=== PATIENT | male | born 1945 | race Caucasian/White ===

== ENCOUNTER → 2018-06-23 14:31 | Outpatient (CLI) | payer MEDICARE, OTHER, SELFPAY ==
--- NOTE | 2018-06-23 14:47 | RAD_ITS ---
STUDY: X-RAY - PELVIS REASON FOR EXAM: Male, 72 years old. Inflammatory polyarthropathy TECHNIQUE: One view of the pelvis was obtained. COMPARISON: None. FINDINGS: There is a non-specific bowel gas pattern. Normal visualized soft tissue structures. Normal bilateral iliac wings, sacroiliac joints and visualized sacrum. Normal visualized bilateral superior and inferior pubic rami. Normal pubic symphysis. Normal ischial tuberosities. Normal visualized right femoral head. Normal right acetabulum. Normal right hip joint. Normal visualized left femoral head. Normal left acetabulum. Normal left hip joint. RAD/Pelvis 1 or 2 Views IMPRESSION: Normal x-ray examination of the pelvis. Electronically Signed: Sebastien North DO at 23:53 EDT Tel [phone], Service support ,
[2018-06-23 17:48] LABS: Hematocrit 41.6 % (40-54); Hemoglobin 13.9 g/dl (13.0-16.5); Lymphocyte % 24.2 % (19-41); Mean Corp Hgb Conc 33.4 g/gl (32-36); Mean Corpuscular Hgb 33.1 pg (27.0-32.0); Mean Platelet Vol. 9.8 fl (6.2-12.0); Neutrophil % 61.5 % (47-70); Platelet Count 397 K/mm3 (150-450); RBC Distribution Width CV 15.1 % (11.6-14.6); RBC Distribution Width SD 54.3 fl (35.1-43.9); White Blood Count 7.4 K/mm3 (4.4-11.0)
[2018-06-23 17:49] LABS: Absolute Neutrophil Count 4.6 X10^3/uL (2.0-7.7); Basophil# 0.08 X10^3/uL; Basophil% 1.1 % (0-1); Eosinophil# 0.31 X10^3/uL; Eosinophils% 4.2 % (0-5); Monocyte# 0.66 X10^3/uL; Monocyte% 8.9 % (0-10); Neutrophil # 4.57 X10^3/uL (2.7-7.7)
[2018-06-23 17:54] LABS: POSITIVE COUNT NO; POSITIVE DIFFERENTIAL NO; POSITIVE MORPHOLOGY NO
[2018-06-23 18:10] LABS: Erythrocyte Sedimentation Rate 6 mm/hr (0-20)
[2018-06-23 18:12] LABS: AST(SGOT) 18 U/L (15-37); Alanine Aminotransfer ALT/SGPT 26 U/L (16-61); Albumin, Serum 4.1 g/dL (3.2-5.0); Alkaline Phosphatase 102 U/L (45-117); Anion Gap 6 (5-15); BUN 19 mg/dL (7-18); CRP < 2.90 mg/L (0.0-3.0); Calcium,Total 9.1 mg/dL (8.5-10.1); Chloride 105 mmol/L (98-107); EST Glomerular Filtration Rate 78 mL/min (>60); Est Glom Filt Rate - Afr Amer 94 mL/min (>60); Globulin 4.2 g/dL (2.2-4.2); Glucose 79 mg/dL (74-106); Potassium 3.7 mmol/L (3.5-5.1); Protein, Total 8.3 g/dL (6.4-8.2); Rheumatoid Factor < 10.0 IU/mL (<15); Sodium Level 141 mmol/L (136-145)
[2018-06-27 12:59] LABS: ANTINUCLEAR ANTIBODIES DIRECT Negative (Negative)
[2018-06-28 08:46] LABS: CCP IgG Antibodies 3 units (0-19); HEPATITIS B SURFACE AG Negative (Negative); HLA B27 Negative (.); Hep B Surface Antibodies Non Reactive (.); Hep C Antibodies <0.1 s/co ratio (0.0-0.9)
== END ==
PROVIDERS: Family Provider Family Medicine; PCP Family Medicine; Referring Provider Internal Medicine Rheumatology; Visit Provider Internal Medicine Rheumatology
DX: M06.4 Inflammatory polyarthropathy (principal); I10 Essential (primary) hypertension; E78.5 Hyperlipidemia, unspecified; H40.9 Unspecified glaucoma; H35.30 Unspecified macular degeneration
CPT/HCPCS: 36415; 72170; 80053; 81374; 85025; 85652; 86038; 86140; 86200; 86431; 86706; 86803; 87340

== ENCOUNTER → 2018-09-08 | Outpatient (CLI) | payer MEDICARE, OTHER, SELFPAY ==
[2018-09-08 12:46] LABS: Absolute Lymphocyte Count 1.13 X10^3/ul (0.83-4.51); Absolute Neutrophil Count 3.6 X10^3/uL (2.0-7.7); Basophil# 0.06 X10^3/uL; Basophil% 1.1 % (0-1); Eosinophil# 0.18 X10^3/uL; Eosinophils% 3.4 % (0-5); Hemoglobin 13.4 g/dl (13.0-16.5); Lymphocyte # 1.13 X10^3/ul (4.0); Lymphocyte % 21.1 % (19-41); Mean Corp Hgb Conc 33.5 g/gl (32-36); Mean Corpuscular Hgb 32.8 pg (27.0-32.0); Mean Platelet Vol. 9.6 fl (6.2-12.0); Monocyte# 0.43 X10^3/uL; Neutrophil # 3.56 X10^3/uL (2.7-7.7); Neutrophil % 66.4 % (47-70); Platelet Count 406 K/mm3 (150-450); RBC Distribution Width CV 15.2 % (11.6-14.6); RBC Distribution Width SD 52.9 fl (35.1-43.9); Red Blood Count 4.08 M/mm3 (4.6-6.2); White Blood Count 5.4 K/mm3 (4.4-11.0)
[2018-09-08 12:48] LABS: POSITIVE COUNT NO; POSITIVE DIFFERENTIAL NO; POSITIVE MORPHOLOGY NO
[2018-09-08 12:56] LABS: ALB/GLOB Ratio 0.9 RATIO (0.9-2.4); AST(SGOT) 16 U/L (15-37); Alanine Aminotransfer ALT/SGPT 29 U/L (16-61); Albumin, Serum 3.7 g/dL (3.2-5.0); Alkaline Phosphatase 99 U/L (45-117); Anion Gap 4 (5-15); BUN 16 mg/dL (7-18); BUN/Creat Ratio 13.2 RATIO (10-20); Calcium,Total 9.2 mg/dL (8.5-10.1); Chloride 105 mmol/L (98-107); Creatinine, Serum 1.21 mg/dL (0.70-1.30); EST Glomerular Filtration Rate 62 mL/min (>60); Est Glom Filt Rate - Afr Amer 75 mL/min (>60); Globulin 4.1 g/dL (2.2-4.2); Glucose 72 mg/dL (74-106); Potassium 3.7 mmol/L (3.5-5.1); Protein, Total 7.8 g/dL (6.4-8.2); Sodium Level 140 mmol/L (136-145)
== END | disposition home or self-care (01) ==
LOC: MTLAB 10:28
PROVIDERS: Family Provider Family Medicine; PCP Family Medicine; Referring Provider Internal Medicine Rheumatology; Visit Provider Internal Medicine Rheumatology
DX: I10 Essential (primary) hypertension (principal); M06.4 Inflammatory polyarthropathy; E78.5 Hyperlipidemia, unspecified; H40.9 Unspecified glaucoma; H35.30 Unspecified macular degeneration
CPT/HCPCS: 36415; 80053; 85025

== ENCOUNTER → 2018-12-08 10:50 | Outpatient (CLI) | payer MEDICARE, OTHER, SELFPAY ==
[2018-12-08 12:30] LABS: Absolute Lymphocyte Count 0.95 X10^3/uL (0.83-4.51); Absolute Neutrophil Count 5.3 X10^3/uL (2.0-7.7); Basophil# 0.07 X10^3/uL; Eosinophil# 0.17 X10^3/uL; Eosinophils% 2.4 % (0-5); Hematocrit 40.8 % (40-54); Hemoglobin 13.6 g/dL (13.0-16.5); Lymphocyte # 0.95 X10^3/ul (4.0); Lymphocyte % 13.2 % (19-41); Mean Corp Hgb Conc 33.3 g/dL (32-36); Mean Corpuscular Hgb 34.9 pg (27.0-32.0); Mean Corpuscular Volume 104.6 fL (80-94); Mean Platelet Vol. 9.8 fl (6.2-12.0); Monocyte# 0.66 X10^3/uL; Monocyte% 9.2 % (0-10); NRBC Flagged by Analyzer 0 % (0-5); Neutrophil % 73.9 % (47-70); Platelet Count 284 K/mm3 (150-450); RBC Distribution Width CV 14.5 % (11.6-14.6); RBC Distribution Width SD 55.9 fl (35.1-43.9); White Blood Count 7.2 K/mm3 (4.4-11.0)
[2018-12-08 12:56] LABS: ALB/GLOB Ratio 1.1 RATIO (0.9-2.4); AST(SGOT) 16 U/L (15-37); Alanine Aminotransfer ALT/SGPT 21 U/L (16-61); Alkaline Phosphatase 87 U/L (45-117); Anion Gap 4 (5-15); BUN 21 mg/dL (7-18); BUN/Creat Ratio 21.7 RATIO (10-20); Calcium,Total 9.1 mg/dL (8.5-10.1); Chloride 107 mmol/L (98-107); Creatinine, Serum 0.97 mg/dL (0.70-1.30); EST Glomerular Filtration Rate 81 mL/min (>60); Est Glom Filt Rate - Afr Amer 98 mL/min (>60); Globulin 3.5 g/dL (2.2-4.2); Glucose 99 mg/dL (74-106); Protein, Total 7.5 g/dL (6.4-8.2); Sodium Level 139 mmol/L (136-145)
== END ==
PROVIDERS: Family Provider Family Medicine; PCP Family Medicine; Referring Provider Internal Medicine Rheumatology; Visit Provider Internal Medicine Rheumatology
DX: M06.4 Inflammatory polyarthropathy (principal); I10 Essential (primary) hypertension; E78.5 Hyperlipidemia, unspecified; H40.9 Unspecified glaucoma; H35.30 Unspecified macular degeneration; Z79.899 Other long term (current) drug therapy
CPT/HCPCS: 36415; 80053; 85025

== ENCOUNTER → 2019-03-09 10:47 | Outpatient (CLI) | payer MEDICARE, OTHER, SELFPAY ==
[2019-03-09 13:03] LABS: Absolute Lymphocyte Count 1.25 X10^3/uL (0.83-4.51); Absolute Neutrophil Count 4.6 X10^3/uL (2.0-7.7); Basophil# 0.05 X10^3/uL; Basophil% 0.7 % (0-1); Eosinophil# 0.18 X10^3/uL; Eosinophils% 2.7 % (0-5); Hematocrit 39.4 % (40-54); Hemoglobin 13.2 g/dL (13.0-16.5); Lymphocyte # 1.25 X10^3/ul (4.0); Lymphocyte % 18.5 % (19-41); Mean Corp Hgb Conc 33.5 g/dL (32-36); Mean Corpuscular Hgb 34.9 pg (27.0-32.0); Mean Corpuscular Volume 104.2 fL (80-94); Mean Platelet Vol. 9.7 fl (6.2-12.0); Monocyte# 0.64 X10^3/uL; Monocyte% 9.5 % (0-10); NRBC Flagged by Analyzer 0 % (0-5); Neutrophil # 4.61 X10^3/uL (2.7-7.7); Neutrophil % 68.3 % (47-70); Platelet Count 247 K/mm3 (150-450); RBC Distribution Width CV 14.3 % (11.6-14.6); RBC Distribution Width SD 54.3 fl (35.1-43.9); Red Blood Count 3.78 M/mm3 (4.6-6.2); White Blood Count 6.8 K/mm3 (4.4-11.0)
[2019-03-09 13:53] LABS: ALB/GLOB Ratio 1.2 RATIO (0.9-2.4); AST(SGOT) 20 U/L (15-37); Alanine Aminotransfer ALT/SGPT 26 U/L (16-61); Albumin, Serum 3.9 g/dL (3.2-5.0); Alkaline Phosphatase 76 U/L (45-117); Anion Gap 4 (5-15); BUN 22 mg/dL (7-18); Calcium,Total 9.5 mg/dL (8.5-10.1); Chloride 108 mmol/L (98-107); Creatinine, Serum 1.16 mg/dL (0.70-1.30); EST Glomerular Filtration Rate 65 mL/min (>60); Est Glom Filt Rate - Afr Amer 79 mL/min (>60); Globulin 3.3 g/dL (2.2-4.2); Glucose 98 mg/dL (74-106); Potassium 4.1 mmol/L (3.5-5.1); Protein, Total 7.2 g/dL (6.4-8.2); Sodium Level 141 mmol/L (136-145)
== END ==
PROVIDERS: Family Provider Family Medicine; PCP Family Medicine; Referring Provider Internal Medicine Rheumatology; Visit Provider Internal Medicine Rheumatology
DX: I10 Essential (primary) hypertension (principal); M06.4 Inflammatory polyarthropathy; E78.5 Hyperlipidemia, unspecified; H40.9 Unspecified glaucoma; H35.30 Unspecified macular degeneration; Z79.899 Other long term (current) drug therapy
CPT/HCPCS: 36415; 80053; 85025

== ENCOUNTER → 2019-05-19 10:08 | Outpatient (CLI) | payer MEDICARE, OTHER, SELFPAY ==
[2019-05-19 12:06] LABS: Absolute Lymphocyte Count 1.22 X10^3/uL (0.83-4.51); Basophil# 0.05 X10^3/uL; Basophil% 0.8 % (0-1); Eosinophils% 3.2 % (0-5); Hematocrit 41.2 % (40-54); Hemoglobin 13.8 g/dL (13.0-16.5); Lymphocyte # 1.22 X10^3/ul (4.0); Lymphocyte % 19.4 % (19-41); Mean Corp Hgb Conc 33.5 g/dL (32-36); Mean Corpuscular Hgb 35.6 pg (27.0-32.0); Mean Corpuscular Volume 106.2 fL (80-94); Mean Platelet Vol. 9.6 fl (6.2-12.0); Monocyte# 0.77 X10^3/uL; Monocyte% 12.2 % (0-10); NRBC Flagged by Analyzer 0 % (0-5); Neutrophil # 4.02 X10^3/uL (2.7-7.7); Neutrophil % 63.9 % (47-70); Platelet Count 264 K/mm3 (150-450); RBC Distribution Width CV 14.1 % (11.6-14.6); RBC Distribution Width SD 55.4 fl (35.1-43.9); Red Blood Count 3.88 M/mm3 (4.6-6.2); White Blood Count 6.3 K/mm3 (4.4-11.0)
[2019-05-19 12:31] LABS: ALB/GLOB Ratio 1.1 RATIO (0.9-2.4); AST(SGOT) 20 U/L (15-37); Alanine Aminotransfer ALT/SGPT 25 U/L (16-61); Alkaline Phosphatase 79 U/L (45-117); Anion Gap 7 (5-15); BUN 23 mg/dL (7-18); BUN/Creat Ratio 22.3 RATIO (10-20); Calcium,Total 9.3 mg/dL (8.5-10.1); Chloride 104 mmol/L (98-107); Creatinine, Serum 1.03 mg/dL (0.70-1.30); EST Glomerular Filtration Rate 75 mL/min (>60); Est Glom Filt Rate - Afr Amer 91 mL/min (>60); Globulin 3.5 g/dL (2.2-4.2); Glucose 95 mg/dL (74-106); Potassium 4.1 mmol/L (3.5-5.1); Protein, Total 7.5 g/dL (6.4-8.2); Sodium Level 140 mmol/L (136-145)
== END ==
PROVIDERS: PCP Family Medicine; Referring Provider Internal Medicine Rheumatology; Visit Provider Internal Medicine Rheumatology
DX: M06.4 Inflammatory polyarthropathy (principal); I10 Essential (primary) hypertension; E78.5 Hyperlipidemia, unspecified; H40.9 Unspecified glaucoma; H35.30 Unspecified macular degeneration; Z79.899 Other long term (current) drug therapy
CPT/HCPCS: 36415; 80053; 85025

== ENCOUNTER → 2019-08-18 09:46 | Outpatient (CLI) | payer MEDICARE, OTHER, SELFPAY ==
[2019-08-18 12:45] LABS: Absolute Lymphocyte Count 1.02 X10^3/uL (0.83-4.51); Absolute Neutrophil Count 3.1 X10^3/uL (2.0-7.7); Basophil# 0.05 X10^3/uL; Eosinophil# 0.22 X10^3/uL; Eosinophils% 4.4 % (0-5); Hematocrit 42.1 % (40-54); Hemoglobin 13.9 g/dL (13.0-16.5); Lymphocyte # 1.02 X10^3/ul (4.0); Lymphocyte % 20.5 % (19-41); Mean Corpuscular Hgb 35.2 pg (27.0-32.0); Mean Corpuscular Volume 106.6 fL (80-94); Mean Platelet Vol. 9.9 fl (6.2-12.0); Monocyte# 0.58 X10^3/uL; Monocyte% 11.7 % (0-10); NRBC Flagged by Analyzer 0 % (0-5); Neutrophil # 3.09 X10^3/uL (2.7-7.7); Neutrophil % 62.2 % (47-70); Platelet Count 252 K/mm3 (150-450); RBC Distribution Width CV 14.6 % (11.6-14.6); RBC Distribution Width SD 56.4 fl (35.1-43.9); Red Blood Count 3.95 M/mm3 (4.6-6.2)
[2019-08-18 13:00] LABS: ALB/GLOB Ratio 1.1 RATIO (0.9-2.4); AST(SGOT) 17 U/L (15-37); Alanine Aminotransfer ALT/SGPT 30 U/L (16-61); Albumin, Serum 3.9 g/dL (3.2-5.0); Alkaline Phosphatase 82 U/L (45-117); Anion Gap 6 (5-15); BUN 20 mg/dL (7-18); Calcium,Total 9.6 mg/dL (8.5-10.1); Chloride 104 mmol/L (98-107); Creatinine, Serum 1.05 mg/dL (0.70-1.30); EST Glomerular Filtration Rate 73 mL/min (>60); Est Glom Filt Rate - Afr Amer 89 mL/min (>60); Globulin 3.7 g/dL (2.2-4.2); Glucose 108 mg/dL (74-106); Potassium 4.3 mmol/L (3.5-5.1); Protein, Total 7.6 g/dL (6.4-8.2); Sodium Level 141 mmol/L (136-145)
== END ==
PROVIDERS: PCP Family Medicine; Referring Provider Internal Medicine Rheumatology; Visit Provider Internal Medicine Rheumatology
DX: M06.4 Inflammatory polyarthropathy (principal); I10 Essential (primary) hypertension; E78.5 Hyperlipidemia, unspecified; H40.9 Unspecified glaucoma; H35.30 Unspecified macular degeneration; Z79.899 Other long term (current) drug therapy
CPT/HCPCS: 36415; 80053; 85025

== ENCOUNTER → 2019-11-10 10:48 | Outpatient (CLI) | payer MEDICARE, OTHER, SELFPAY ==
[2019-11-10 12:56] LABS: Absolute Lymphocyte Count 1.03 X10^3/uL (0.83-4.51); Absolute Neutrophil Count 4.5 X10^3/uL (2.0-7.7); Basophil# 0.04 X10^3/uL; Basophil% 0.6 % (0-1); Eosinophil# 0.18 X10^3/uL; Eosinophils% 2.8 % (0-5); Hematocrit 42.1 % (40-54); Hemoglobin 14.1 g/dL (13.0-16.5); Lymphocyte # 1.03 X10^3/ul (4.0); Lymphocyte % 16.1 % (19-41); Mean Corp Hgb Conc 33.5 g/dL (32-36); Mean Corpuscular Hgb 35.7 pg (27.0-32.0); Mean Corpuscular Volume 106.6 fL (80-94); Mean Platelet Vol. 9.8 fl (6.2-12.0); Monocyte# 0.64 X10^3/uL; NRBC Flagged by Analyzer 0 % (0-5); Neutrophil # 4.49 X10^3/uL (2.7-7.7); Platelet Count 283 K/mm3 (150-450); RBC Distribution Width CV 14.3 % (11.6-14.6); RBC Distribution Width SD 56.6 fl (35.1-43.9); Red Blood Count 3.95 M/mm3 (4.6-6.2); White Blood Count 6.4 K/mm3 (4.4-11.0)
[2019-11-10 13:10] LABS: ALB/GLOB Ratio 1.2 RATIO (0.9-2.4); AST(SGOT) 17 U/L (15-37); Alanine Aminotransfer ALT/SGPT 25 U/L (16-61); Alkaline Phosphatase 74 U/L (45-117); Anion Gap 1 (5-15); BUN 19 mg/dL (7-18); BUN/Creat Ratio 16.8 RATIO (10-20); Calcium,Total 9.3 mg/dL (8.5-10.1); Chloride 109 mmol/L (98-107); Creatinine, Serum 1.13 mg/dL (0.70-1.30); EST Glomerular Filtration Rate 67 mL/min (>60); Est Glom Filt Rate - Afr Amer 81 mL/min (>60); Globulin 3.3 g/dL (2.2-4.2); Glucose 100 mg/dL (74-106); Potassium 3.9 mmol/L (3.5-5.1); Protein, Total 7.3 g/dL (6.4-8.2); Sodium Level 141 mmol/L (136-145)
== END ==
PROVIDERS: PCP Family Medicine; Referring Provider Internal Medicine Rheumatology; Visit Provider Internal Medicine Rheumatology
DX: M06.4 Inflammatory polyarthropathy (principal); I10 Essential (primary) hypertension; E78.5 Hyperlipidemia, unspecified; H40.9 Unspecified glaucoma; H35.30 Unspecified macular degeneration; Z79.899 Other long term (current) drug therapy
CPT/HCPCS: 36415; 80053; 85025

== ENCOUNTER → 2020-01-28 10:54 | Outpatient (CLI) | payer MEDICARE, OTHER, SELFPAY ==
[2020-01-29 15:59] LABS: Absolute Lymphocyte Count 1.07 X10^3/uL (0.83-4.51); Absolute Neutrophil Count 7.6 X10^3/uL (2.0-7.7); Basophil# 0.03 X10^3/uL; Basophil% 0.3 % (0-1); Eosinophil# 0.03 X10^3/uL; Eosinophils% 0.3 % (0-5); Hematocrit 32.8 % (40-54); Lymphocyte # 1.07 X10^3/ul (4.0); Lymphocyte % 11.2 % (19-41); Mean Corp Hgb Conc 33.5 g/dL (32-36); Mean Corpuscular Volume 104.5 fL (80-94); Mean Platelet Vol. 11.4 fl (6.2-12.0); Monocyte# 0.74 X10^3/uL; Monocyte% 7.7 % (0-10); NRBC Flagged by Analyzer 0 % (0-5); Neutrophil # 7.61 X10^3/uL (2.7-7.7); Neutrophil % 79.5 % (47-70); POSITIVE MORPHOLOGY YES; Platelet Count 330 K/mm3 (150-450); RBC Distribution Width CV 15.1 % (11.6-14.6); RBC Distribution Width SD 57.1 fl (35.1-43.9); Red Blood Count 3.14 M/mm3 (4.6-6.2); White Blood Count 9.6 K/mm3 (4.4-11.0)
[2020-01-29 16:05] LABS: Differential Indicated SCAN CRITERIA MET
[2020-01-29 16:24] LABS: ALB/GLOB Ratio 0.7 RATIO (0.9-2.4); AST(SGOT) 178 U/L (15-37); Alanine Aminotransfer ALT/SGPT 347 U/L (16-61); Albumin, Serum 2.9 g/dL (3.2-5.0); Alkaline Phosphatase 141 U/L (45-117); Anion Gap 6 (5-15); BUN 21 mg/dL (7-18); BUN/Creat Ratio 19.3 RATIO (10-20); Chloride 103 mmol/L (98-107); Creatinine, Serum 1.09 mg/dL (0.70-1.30); EST Glomerular Filtration Rate 70 mL/min (>60); Est Glom Filt Rate - Afr Amer 85 mL/min (>60); Globulin 4.3 g/dL (2.2-4.2); Glucose 98 mg/dL (74-106); Potassium 3.9 mmol/L (3.5-5.1); Protein, Total 7.2 g/dL (6.4-8.2); Sodium Level 138 mmol/L (136-145)
[2020-01-29 17:05] LABS: Platelet Estimate ADEQUATE (ADEQ)
[2020-01-29 17:06] LABS: Macrocytosis 1+; Reactive Lymphocyte 1+
== END ==
PROVIDERS: PCP Family Medicine; Referring Provider Internal Medicine Rheumatology; Visit Provider Internal Medicine Rheumatology
DX: M06.4 Inflammatory polyarthropathy (principal); M47.897 Other spondylosis, lumbosacral region; I10 Essential (primary) hypertension; E78.5 Hyperlipidemia, unspecified; H40.9 Unspecified glaucoma; H35.30 Unspecified macular degeneration; Z79.899 Other long term (current) drug therapy
CPT/HCPCS: 36415; 80053; 85025

== ENCOUNTER → 2020-03-03 10:45 | Outpatient (CLI) | payer MEDICARE, SELFPAY ==
[2020-03-03 12:23] LABS: Absolute Neutrophil Count 4.3 X10^3/uL (2.0-7.7); Basophil# 0.07 X10^3/uL; Basophil% 1.1 % (0-1); Eosinophil# 0.24 X10^3/uL; Eosinophils% 3.7 % (0-5); Hematocrit 40.5 % (40-54); Hemoglobin 13.4 g/dL (13.0-16.5); Lymphocyte % 18.5 % (19-41); Mean Corp Hgb Conc 33.1 g/dL (32-36); Mean Corpuscular Hgb 34.1 pg (27.0-32.0); Mean Corpuscular Volume 103.1 fL (80-94); Mean Platelet Vol. 9.8 fl (6.2-12.0); Monocyte# 0.67 X10^3/uL; Monocyte% 10.3 % (0-10); NRBC Flagged by Analyzer 0 % (0-5); Neutrophil # 4.27 X10^3/uL (2.7-7.7); Neutrophil % 65.9 % (47-70); Platelet Count 289 K/mm3 (150-450); RBC Distribution Width CV 14.6 % (11.6-14.6); Red Blood Count 3.93 M/mm3 (4.6-6.2); White Blood Count 6.5 K/mm3 (4.4-11.0)
[2020-03-03 13:06] LABS: ALB/GLOB Ratio 1.1 RATIO (0.9-2.4); AST(SGOT) 17 U/L (15-37); Alanine Aminotransfer ALT/SGPT 23 U/L (16-61); Albumin, Serum 3.9 g/dL (3.2-5.0); Alkaline Phosphatase 105 U/L (45-117); Anion Gap 4 (5-15); BUN 29 mg/dL (7-18); BUN/Creat Ratio 27.6 RATIO (10-20); Calcium,Total 9.2 mg/dL (8.5-10.1); Chloride 106 mmol/L (98-107); Creatinine, Serum 1.05 mg/dL (0.70-1.30); EST Glomerular Filtration Rate 73 mL/min (>60); Est Glom Filt Rate - Afr Amer 88 mL/min (>60); Globulin 3.7 g/dL (2.2-4.2); Glucose 76 mg/dL (74-106); Potassium 3.8 mmol/L (3.5-5.1); Protein, Total 7.6 g/dL (6.4-8.2); Sodium Level 138 mmol/L (136-145)
== END ==
PROVIDERS: PCP Family Medicine; Visit Provider Internal Medicine Rheumatology
DX: M06.4 Inflammatory polyarthropathy (principal); M47.897 Other spondylosis, lumbosacral region; I10 Essential (primary) hypertension; E78.5 Hyperlipidemia, unspecified; H40.9 Unspecified glaucoma; H35.30 Unspecified macular degeneration; Z79.899 Other long term (current) drug therapy
CPT/HCPCS: 36415; 80053; 85025

== ENCOUNTER → 2020-09-05 09:09 | Outpatient (CLI) | payer MEDICARE, SELFPAY ==
[2020-09-05 10:22] LABS: Absolute Lymphocyte Count 0.99 X10^3/uL (0.83-4.51); Absolute Neutrophil Count 5.3 X10^3/uL (2.0-7.7); Basophil# 0.05 X10^3/uL; Basophil% 0.7 % (0-1); Eosinophil# 0.21 X10^3/uL; Eosinophils% 2.9 % (0-5); Hematocrit 42.4 % (40-54); Hemoglobin 14.2 g/dL (13.0-16.5); Lymphocyte # 0.99 X10^3/ul (0.83-4.51); Lymphocyte % 13.5 % (19-41); Mean Corp Hgb Conc 33.5 g/dL (32-36); Mean Corpuscular Hgb 34.1 pg (27.0-32.0); Mean Corpuscular Volume 101.9 fL (80-94); Mean Platelet Vol. 9.5 fl (6.2-12.0); Monocyte# 0.78 X10^3/uL; Monocyte% 10.7 % (0-10); NRBC Flagged by Analyzer 0 % (0-5); Neutrophil # 5.27 X10^3/uL (2.7-7.7); Neutrophil % 71.9 % (47-70); Platelet Count 269 K/mm3 (150-450); RBC Distribution Width CV 13.9 % (11.6-14.6); RBC Distribution Width SD 52.3 fl (35.1-43.9); Red Blood Count 4.16 M/mm3 (4.6-6.2); White Blood Count 7.3 K/mm3 (4.4-11.0)
[2020-09-05 10:47] LABS: ALB/GLOB Ratio 1.1 RATIO (0.9-2.4); AST(SGOT) 20 U/L (15-37); Alanine Aminotransfer ALT/SGPT 31 U/L (16-61); Albumin, Serum 3.9 g/dL (3.2-5.0); Alkaline Phosphatase 90 U/L (45-117); Anion Gap 6 (5-15); BUN 20 mg/dL (7-18); BUN/Creat Ratio 16.9 RATIO (10-20); CRP < 2.90 mg/L (0.0-3.0); Calcium,Total 9.2 mg/dL (8.5-10.1); Chloride 102 mmol/L (98-107); Cholesterol 151 mg/dL (200); Creatinine, Serum 1.18 mg/dL (0.70-1.30); EST Glomerular Filtration Rate 64 mL/min (>60); Est Glom Filt Rate - Afr Amer 77 mL/min (>60); Globulin 3.4 g/dL (2.2-4.2); Glucose 99 mg/dL (74-106); High Density Lipoprotein 58 mg/dL; PSA,Total - Annual Screen 1.71 ng/mL (0.00-4.00); Potassium 3.9 mmol/L (3.5-5.1); Protein, Total 7.3 g/dL (6.4-8.2); Sodium Level 137 mmol/L (136-145); Triglycerides 105 mg/dL; Very Low Density Lipoprotein 21 mg/dL (5-40)
[2020-09-05 11:00] LABS: Erythrocyte Sedimentation Rate 2 mm/hr (0-20)
== END ==
PROVIDERS: PCP Family Medicine; Referring Provider Internal Medicine Rheumatology; Visit Provider Internal Medicine Rheumatology
DX: M06.4 Inflammatory polyarthropathy (principal); M47.897 Other spondylosis, lumbosacral region; I10 Essential (primary) hypertension; E78.5 Hyperlipidemia, unspecified; H40.9 Unspecified glaucoma; H35.30 Unspecified macular degeneration; Z79.899 Other long term (current) drug therapy; Z12.5 Encounter for screening for malignant neoplasm of prostate
CPT/HCPCS: 36415; 80053; 80061; 84153; 85025; 85652; 86140; G0103

== ENCOUNTER 2021-03-20 09:28 | Outpatient (CLI) | payer MEDICARE, SELFPAY ==
[2021-03-20 10:21] LABS: Absolute Lymphocyte Count 1.01 X10^3/uL (0.83-4.51); Absolute Neutrophil Count 3.7 X10^3/uL (2.0-7.7); Basophil# 0.05 X10^3/uL; Basophil% 0.9 % (0-1); Eosinophil# 0.33 X10^3/uL; Eosinophils% 5.8 % (0-5); Hematocrit 42.9 % (40-54); Hemoglobin 14.6 g/dL (13.0-16.5); Lymphocyte # 1.01 X10^3/ul (0.83-4.51); Lymphocyte % 17.8 % (19-41); Mean Corpuscular Hgb 34.8 pg (27.0-32.0); Mean Corpuscular Volume 102.1 fL (80-94); Mean Platelet Vol. 9.5 fl (6.2-12.0); Monocyte# 0.57 X10^3/uL; Monocyte% 10.1 % (0-10); NRBC Flagged by Analyzer 0 % (0-5); Neutrophil # 3.68 X10^3/uL (2.7-7.7); Platelet Count 271 K/mm3 (150-450); RBC Distribution Width CV 13.8 % (11.6-14.6); RBC Distribution Width SD 52.8 fl (35.1-43.9); White Blood Count 5.7 K/mm3 (4.4-11.0)
[2021-03-20 10:56] LABS: ALB/GLOB Ratio 1.1 RATIO (0.9-2.4); AST(SGOT) 18 U/L (15-37); Alanine Aminotransfer ALT/SGPT 27 U/L (16-61); Alkaline Phosphatase 82 U/L (45-117); Anion Gap 5 (5-15); BUN 23 mg/dL (7-18); BUN/Creat Ratio 21.7 RATIO (10-20); Calcium,Total 9.5 mg/dL (8.5-10.1); Chloride 105 mmol/L (98-107); Creatinine, Serum 1.06 mg/dL (0.70-1.30); EST Glomerular Filtration Rate 72 mL/min (>60); Est Glom Filt Rate - Afr Amer 87 mL/min (>60); Globulin 3.6 g/dL (2.2-4.2); Glucose 99 mg/dL (74-106); Potassium 3.9 mmol/L (3.5-5.1); Protein, Total 7.6 g/dL (6.4-8.2); Sodium Level 139 mmol/L (136-145)
== END 2021-03-20 23:59 | disposition short-term general hospital (02) ==
LOC: MTLAB 09:29
PROVIDERS: PCP Family Medicine; Referring Provider Internal Medicine Rheumatology; Visit Provider Internal Medicine Rheumatology
DX: M06.4 Inflammatory polyarthropathy (principal); M47.897 Other spondylosis, lumbosacral region; I10 Essential (primary) hypertension; E78.5 Hyperlipidemia, unspecified; H40.9 Unspecified glaucoma; H35.30 Unspecified macular degeneration; Z79.899 Other long term (current) drug therapy
CPT/HCPCS: 36415; 80053; 85025

== ENCOUNTER → 2022-04-23 | Outpatient (CLI) | payer MEDICARE, SELFPAY ==
[2022-04-23 10:06] LABS: Erythrocyte Sedimentation Rate 3 mm/hr (0-20)
[2022-04-23 10:07] LABS: Absolute Lymphocyte Count 1.02 X10^3/uL (0.83-4.51); Absolute Neutrophil Count 3.8 X10^3/uL (2.0-7.7); Basophil# 0.06 X10^3/uL; Eosinophil# 0.21 X10^3/uL; Eosinophils% 3.7 % (0-5); Hematocrit 40.9 % (40-54); Hemoglobin 13.9 g/dL (13.0-16.5); Lymphocyte # 1.02 X10^3/ul (0.83-4.51); Lymphocyte % 17.8 % (19-41); Mean Corpuscular Hgb 35.6 pg (27.0-32.0); Mean Corpuscular Volume 104.9 fL (80-94); Mean Platelet Vol. 9.2 fl (6.2-12.0); Monocyte# 0.66 X10^3/uL; Monocyte% 11.5 % (0-10); NRBC Flagged by Analyzer 0 % (0-5); Neutrophil # 3.77 X10^3/uL (2.7-7.7); Neutrophil % 65.7 % (47-70); Platelet Count 247 K/mm3 (150-450); RBC Distribution Width CV 13.6 % (11.6-14.6); RBC Distribution Width SD 53.6 fl (35.1-43.9); White Blood Count 5.7 K/mm3 (4.4-11.0)
[2022-04-23 10:11] LABS: ALB/GLOB Ratio 1.2 RATIO (0.9-2.4); AST(SGOT) 19 U/L (15-37); Alanine Aminotransfer ALT/SGPT 23 U/L (16-61); Albumin, Serum 3.9 g/dL (3.2-5.0); Alkaline Phosphatase 76 U/L (45-117); Anion Gap 5 (5-15); BUN 30 mg/dL (7-18); BUN/Creat Ratio 28.6 RATIO (10-20); CRP < 2.90 mg/L (0.0-3.0); Calcium,Total 9.1 mg/dL (8.5-10.1); Chloride 108 mmol/L (98-107); Creatinine, Serum 1.05 mg/dL (0.70-1.30); EST Glomerular Filtration Rate 73 mL/min (>60); Est Glom Filt Rate - Afr Amer 88 mL/min (>60); Globulin 3.2 g/dL (2.2-4.2); Glucose 97 mg/dL (74-106); Potassium 3.9 mmol/L (3.5-5.1); Protein, Total 7.1 g/dL (6.4-8.2); Sodium Level 142 mmol/L (136-145)
== END | disposition home or self-care (01) ==
PROVIDERS: PCP Family Medicine; Visit Provider Internal Medicine Rheumatology
DX: M06.4 Inflammatory polyarthropathy (principal); M47.897 Other spondylosis, lumbosacral region; I10 Essential (primary) hypertension; E78.5 Hyperlipidemia, unspecified; H40.9 Unspecified glaucoma; H35.30 Unspecified macular degeneration; Z79.899 Other long term (current) drug therapy
CPT/HCPCS: 36415; 80053; 85025; 85652; 86140

== ENCOUNTER → 2022-12-17 | Outpatient (CLI) | payer MEDICARE, SELFPAY ==
[2022-12-17 12:17] LABS: Erythrocyte Sedimentation Rate 8 mm/hr (0-20)
[2022-12-17 12:25] LABS: Absolute Lymphocyte Count 1.11 X10^3/uL (0.83-4.51); Basophil# 0.07 X10^3/uL; Basophil% 1.2 % (0-1); Eosinophil# 0.17 X10^3/uL; Eosinophils% 2.9 % (0-5); Hematocrit 44.5 % (40-54); Hemoglobin 15.1 g/dL (13.0-16.5); Lymphocyte # 1.11 X10^3/ul (0.83-4.51); Lymphocyte % 18.7 % (19-41); Mean Corp Hgb Conc 33.9 g/dL (32-36); Mean Corpuscular Hgb 35.4 pg (27.0-32.0); Mean Corpuscular Volume 104.2 fL (80-94); Mean Platelet Vol. 9.9 fl (6.2-12.0); Monocyte# 0.56 X10^3/uL; Monocyte% 9.4 % (0-10); NRBC Flagged by Analyzer 0 % (0-5); Neutrophil % 67.3 % (47-70); Platelet Count 292 K/mm3 (150-450); RBC Distribution Width CV 12.8 % (11.6-14.6); RBC Distribution Width SD 49.2 fl (35.1-43.9); Red Blood Count 4.27 M/mm3 (4.6-6.2); White Blood Count 5.9 K/mm3 (4.4-11.0)
[2022-12-17 12:58] LABS: AST(SGOT) 19 U/L (15-37); Alanine Aminotransfer ALT/SGPT 30 U/L (16-61); Albumin, Serum 3.9 g/dL (3.2-5.0); Alkaline Phosphatase 83 U/L (45-117); Anion Gap 3 (5-15); BUN 26 mg/dL (7-18); CRP < 2.90 mg/L (0.0-3.0); Calcium,Total 9.5 mg/dL (8.5-10.1); Chloride 106 mmol/L (98-107); Creatinine, Serum 1.04 mg/dL (0.70-1.30); EST Glomerular Filtration Rate 73 mL/min (>60); Est Glom Filt Rate - Afr Amer 89 mL/min (>60); Globulin 3.8 g/dL (2.2-4.2); Glucose 92 mg/dL (74-106); Potassium 3.9 mmol/L (3.5-5.1); Protein, Total 7.7 g/dL (6.4-8.2); Sodium Level 138 mmol/L (136-145)
== END | disposition home or self-care (01) ==
LOC: MTLAB 10:49
PROVIDERS: PCP Family Medicine; Referring Provider Internal Medicine Rheumatology; Visit Provider Internal Medicine Rheumatology
DX: M06.4 Inflammatory polyarthropathy (principal); M47.897 Other spondylosis, lumbosacral region; Z79.899 Other long term (current) drug therapy
CPT/HCPCS: 36415; 80053; 85025; 85652; 86140

== ENCOUNTER → 2023-01-21 | Outpatient (CLI) | payer MEDICARE, SELFPAY ==
[2023-01-21 12:49] LABS: ALB/GLOB Ratio 1.1 RATIO (0.9-2.4); AST(SGOT) 15 U/L (15-37); Alanine Aminotransfer ALT/SGPT 21 U/L (16-61); Alkaline Phosphatase 80 U/L (45-117); Anion Gap 6 (5-15); BUN 23 mg/dL (7-18); BUN/Creat Ratio 23.9 RATIO (10-20); Calcium,Total 9.1 mg/dL (8.5-10.1); Chloride 106 mmol/L (98-107); Creatinine, Serum 0.96 mg/dL (0.70-1.30); EST Glomerular Filtration Rate 80 mL/min (>60); Est Glom Filt Rate - Afr Amer 97 mL/min (>60); Globulin 3.6 g/dL (2.2-4.2); Glucose 97 mg/dL (74-106); Potassium 3.6 mmol/L (3.5-5.1); Protein, Total 7.6 g/dL (6.4-8.2); Sodium Level 140 mmol/L (136-145)
[2023-01-21 12:54] LABS: Absolute Lymphocyte Count 1.03 X10^3/uL (0.83-4.51); Absolute Neutrophil Count 4.1 X10^3/uL (2.0-7.7); Basophil# 0.04 X10^3/uL; Basophil% 0.7 % (0-1); Eosinophil# 0.18 X10^3/uL; Eosinophils% 3.1 % (0-5); Hematocrit 43.3 % (40-54); Hemoglobin 14.6 g/dL (13.0-16.5); Lymphocyte # 1.03 X10^3/ul (0.83-4.51); Lymphocyte % 17.5 % (19-41); Mean Corp Hgb Conc 33.7 g/dL (32-36); Mean Corpuscular Hgb 35.4 pg (27.0-32.0); Mean Corpuscular Volume 104.8 fL (80-94); Mean Platelet Vol. 9.9 fl (6.2-12.0); Monocyte# 0.47 X10^3/uL; NRBC Flagged by Analyzer 0 % (0-5); Neutrophil # 4.12 X10^3/uL (2.7-7.7); Neutrophil % 70.2 % (47-70); Platelet Count 280 K/mm3 (150-450); RBC Distribution Width CV 13.7 % (11.6-14.6); RBC Distribution Width SD 52.7 fl (35.1-43.9); Red Blood Count 4.13 M/mm3 (4.6-6.2); White Blood Count 5.9 K/mm3 (4.4-11.0)
== END | disposition home or self-care (01) ==
LOC: MTLAB 11:07
PROVIDERS: PCP Family Medicine; Referring Provider Internal Medicine Rheumatology; Visit Provider Internal Medicine Rheumatology
DX: M06.4 Inflammatory polyarthropathy (principal); M47.897 Other spondylosis, lumbosacral region; Z79.899 Other long term (current) drug therapy
CPT/HCPCS: 36415; 80053; 85025

== ENCOUNTER → 2023-07-03 | Outpatient (CLI) | payer MEDICARE, SELFPAY ==
[2023-07-03 10:23] LABS: Absolute Lymphocyte Count 0.93 X10^3/uL (0.83-4.51); Absolute Neutrophil Count 4.3 X10^3/uL (2.0-7.7); Basophil# 0.06 X10^3/uL; Eosinophil# 0.23 X10^3/uL; Eosinophils% 3.7 % (0-5); Hematocrit 42.2 % (40-54); Hemoglobin 14.2 g/dL (13.0-16.5); Lymphocyte # 0.93 X10^3/ul (0.83-4.51); Mean Corp Hgb Conc 33.6 g/dL (32-36); Mean Corpuscular Volume 103.9 fL (80-94); Mean Platelet Vol. 9.4 fl (6.2-12.0); Monocyte# 0.62 X10^3/uL; NRBC Flagged by Analyzer 0 % (0-5); Neutrophil # 4.33 X10^3/uL (2.7-7.7); Platelet Count 276 K/mm3 (150-450); RBC Distribution Width CV 13.7 % (11.6-14.6); Red Blood Count 4.06 M/mm3 (4.6-6.2); White Blood Count 6.2 K/mm3 (4.4-11.0)
[2023-07-03 11:25] LABS: ALB/GLOB Ratio 1.1 RATIO (0.9-2.4); AST(SGOT) 24 U/L (15-37); Alanine Aminotransfer ALT/SGPT 30 U/L (16-61); Albumin, Serum 3.9 g/dL (3.2-5.0); Alkaline Phosphatase 88 U/L (45-117); Anion Gap 3 (5-15); BUN 24 mg/dL (7-18); BUN/Creat Ratio 24.4 RATIO (10-20); Calcium,Total 9.4 mg/dL (8.5-10.1); Chloride 105 mmol/L (98-107); Creatinine, Serum 0.98 mg/dL (0.70-1.30); EST Glomerular Filtration Rate 78 mL/min (>60); Est Glom Filt Rate - Afr Amer 94 mL/min (>60); Globulin 3.5 g/dL (2.2-4.2); Glucose 103 mg/dL (74-106); Protein, Total 7.4 g/dL (6.4-8.2); Sodium Level 138 mmol/L (136-145)
[2023-07-07 15:07] LABS: G6PD Quant Test 288 (127-427); Red Blood Cell Count Test/G6PD 4.16 x10E6/uL (4.14-5.80)
== END | disposition home or self-care (01) ==
PROVIDERS: PCP Family Medicine; Referring Provider Internal Medicine Rheumatology; Visit Provider Internal Medicine Rheumatology
DX: M06.4 Inflammatory polyarthropathy (principal); Z79.899 Other long term (current) drug therapy
CPT/HCPCS: 36415; 80053; 82955; 85025

== ENCOUNTER → 2023-12-23 | Outpatient (CLI) | payer MEDICARE, SELFPAY ==
--- OUTSIDE RECORDS SUMMARY | 2023-12-23 13:01 | XMS RPT_ITS | CCD ---
Author Organization [facility] CliniSynj Care Team Providers Care 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 Name Role Phone Kyle Anthony Unavailable Unavailable Stencel, Kyle Blevins Unavailable Unavailable Stencel, Kyle Blevins Unavailable Unavailable Unavailable KYLE ANTHONY Referring Unavailab le STENCEL, KYLE VILLAREAL Attending Unavailab le STENCEL, KYLE VILLAREAL Primary Care Unavailab le Stencel, Kyle Villareal Attending Unavailab le Stencel, Kyle Villareal Primary Care Unavailab le Bradleycel Kyle BAI Primary Care Provider Kyle Anthony MD Unavailable Kyle Anthony MD Primary Care Provider [phone] Kyle Anthony MD Unavailable KYLE ANTHONY Attending Unavailable STENCEL, KYLE Blevins Referring Unavailable STENCEL, KYLE Blevins Primary Care Unavailable STENCEL, KYLE Blevins Attending Unavailable STENCEL, KYLE Blevins Primary Care Unavailable LYNNDONNA Attending Unavailable STENCEL, KYLE Blevins Primary Care Unavailable STENCEL, KYLE Blevins Primary Care Unavailable LEB, NREI Raymond Attending Unavailable STENCEL, KYLE Blevins Referring Unavailable STENCEL, KYLE Blevins Primary Care Unavailable LEB, NERI Raymond Attending Unavailable STENCEL, KYLE Blevins Primary Care Unavailable STENCEL, KYLE Blevins Attending Unavailable STENCEL, KYLE Blevins Referring Unavailable STENCEL, KYLE Blevins Primary Care Unavailable LEB, NERI Raymond Referring Unavailable STENCEL, KYLE Blevins Primary Care Unavailable LEB, NERI Raymond Referring Unavailable STENCEL, KYLE Blevins Primary Care Unavailable STENCEL, KYLE Blevins Primary Care Unavailable STENCEL, KYLE Blevins Primary Care Unavailable STENCEL, KYLE Blevins Referring Unavailable STENCEL, KYLE Blevins Primary Care Unavailable STENCEL, KYLE Blevins Referring Unavailable STENCEL, KYLE Blevins Primary Care Unavailable STENCEL, KYLE Blevins Referring Unavailable STENCEL, KYLE Blevins Primary Care Unavailable LEB, NERI Raymond Referring Unavailable STENCEL, KYLE Blevins Primary Care Unavailable Medications Current Medications Medication Drug Class(es) Dates Sig (Normalized) Sig (Original) aspirin 81 mg / calcium carbonate 777 mg oral tablet (11 sources) Platelet Aggregation Inhibitor, Nonsteroidal Anti-inflammatory Drug take 1 tablet by mouth once daily aspirin-calcium carbonate 81 mg-300 mg calcium(777 mg) tablet Take 1 tablet by mouth once daily. Active diclofenac sodium 0.01 mg/mg topical gel (17 sources) Nonsteroidal Anti-inflammatory Drug Start: 05-02-2023 End: 06-20-2023 diclofenac sodium (Voltaren) 1 % gel Indications: Primary osteoarthritis of right knee Apply 4.5 inches (4 g) topically 4 times a day as needed (PAIN). 100 g 1 06/20/2023 Active Start: 03-13-2023 End: 03-12-2024 take 1 tablet by mouth once daily diclofenac sodium (Voltaren XR) 100 mg 24 hr tablet Indications: Primary osteoarthritis involving multiple joints Take 1 tablet (100 mg) by mouth once daily. 30 tablet 11 03/13/2023 07/10/2023 Discontinued (Therapy completed) hydroCHLOROthiazide 12.5 mg oral capsule (18 sources) Thiazide Diuretic Start: 01-10-2023 End: 01-10-2024 take 1 capsule by mouth once daily hydroCHLOROthiazide (Microzide) 12.5 mg capsule Indications: Primary hypertension Take 1 capsule (12.5 mg) by mouth once daily. 90 capsule 3 01/10/2023 01/10/2024 Active Start: 07-05-2018 take 1 capsule by mo [facility] once daily hydroCHLOROthiazide (Microzide) 12.5 mg capsule Take 1 capsule (12.5 mg) by mouth once daily. 0 07/05/2018 Active lovastatin 20 mg oral tablet (18 sources) HMG-CoA Reductase Inhibitor Start: 11-22-2022 take 1 tablet by mouth once daily lovastatin (Mevacor) 20 mg tablet Indications: Hyperlipidemia, unspecified TAKE 1 TABLET BY MOUTH EVERY DAY 90 tablet 3 11/22/2022 Active Start: 07-18-2018 take 1 tablet by stacy once daily lovastatin (Mevacor) 20 mg tablet Take 1 tablet (20 mg) by mouth once daily. 0 07/18/2018 Active methotrexate 2.5 mg oral tablet (5 sources) Folate Analog Metabolic Inhibitor Start: 12-24-2022 End: 03-13-2023 take 5 tablets by mouth every week, then take 4 tablets by mouth every week methotrexate (Trexall) 2.5 mg tablet TAKE 5 TABLET(S) ORAL ONCE A WEEK START 4 TABS ONCE A WEEK FOR 2 WEEKS 0 12/24/2022 03/13/2023 Discontinued (Therapy completed) Start: 12-16-[address] [facility] every week Methotrexate 2.5 MG Oral Tablet TAKE 6 TABLETS WEEKLY. Quantity: 0 Refills: 0 Ordered: 16-Dec-2018 DO Start : 16-Dec-2018 Active 24 hr NIFEdipine 30 mg extended release oral tablet (10 sources) Dihydropyridine Calcium Channel Clive Start: 01-07-2023 End: 01-07-2024 take 1 tablet by mouth once daily NIFEdipine ER (Adalat CC) 30 mg 24 hr tablet Indications: Primary hypertension , Raynaud's phenomenon without gangrene Take 1 tablet (30 mg) by mouth once daily. Do not crush, chew, or split. 30 tablet 11 01/07/2023 01/07/2024 Active 12 hr timolol 5 mg/ml ophthalmic solution (18 sources) beta-Adrenergic Clive Start: 07-05-2018 take 1 drop(s) into the eye(s) once daily timolol (Timoptic) 0.5 % ophthalmic solution Administer 1 drop into both eyes once daily. 07/05/2018 Active Completed/Discontinued Medications Medication Drug Class(es) Dates Sig (Normalized) Sig (Original) aspirin 81 mg oral tablet (7 sources) Platelet Aggregation Inhibitor, Nonsteroidal Anti-inflammatory Drug Aspirin 81 MG TABS TAKE 1 TABLET DAILY. Quantity: 0 Refills: 0 Ordered: 27-Jan-2019 DO Active cefprozil 250 mg oral tablet (3 sources) Cephalosporin Antibacterial Start: 01-06-2019 take 1 tablet by mouth once daily Cefprozil 250 MG Oral Tablet TAKE 1 TABLET EVERY 12 HOURS DAILY. Quantity: 14 Refills: 1 Kyle Anthony MD Start : 06-Jan-2019 Active folic acid 1 mg oral tablet (15 sources) Start: 12-24-2022 End: 07-10-2023 take 1 tablet by mouth once daily folic acid (Folvite) 1 mg tablet Take 2 tablets (2 mg) by mouth once daily. 12/24/2022 07/10/2023 Discontinued (Med List Cleanup) Start: 09-17-2018 take 2 tablets by mo [facility] once daily Folic Acid 1 MG Oral Tablet take 2 tablets by mouth every day Quantity: 0 Refills: 0 Ordered: 12-Dec-2018 DO Start : 17-Sep-2018 Active End: 06-14-2022 take 1 tablet by mouth once daily folic acid (Folvite) 1 mg tablet Take 2 tablets (2 mg) by mouth once daily. 0 06/14/2022 Discontinued (Therapy completed) levoFLOXacin 500 mg oral tablet (1 source) Quinolone Antimicrobial Start: 02-10-2020 take 1 tablet by mouth once daily levoFLOXacin 500 MG Oral Tablet TAKE 1 TABLET DAILY DIRECTED. Quantity: 7 Refills: 0 Ordered: 10-Feb-2020 Kyle Anthony MD Start : 10-Feb-2020 Active predniSONE 10 mg oral tablet (1 source) Start: 09-17-2018 predniSONE 10 MG Oral Tablet TAKE 1 TABLET NEEDED. Refills: 0 Start : 17-Sep-2018 Active valACYclovir 1000 mg oral tablet (1 source) Herpesvirus Nucleoside Analog DNA Polymerase Inhibitor, Herpes Simplex Virus Nucleoside Analog DNA Polymerase Inhibitor, Herpes Zoster Virus Nucleoside Analog DNA Polymerase Inhibitor Start: 01-06-2019 take 1 tablet by mouth three times daily valACYclovir HCl - 1 GM Oral Tablet TAKE 1 TABLET 3 TIMES DAILY. Quantity: 21 Refills: 0 Kyle Anthony Start : 06-Jan-2019 Active Start: 01-06-2019 take 1 tablet by [facility] three times daily valACYclovir HCl - 1 GM Oral Tablet TAKE 1 TABLET 3 TIMES DAILY. Quantity: 21 Refills: 0 Kyle Anthony Start : 06-Jan-2019 Active Problems Active Problems Problem Classification Problem Date Documented Da te Episodic/Chronic Blindness and vision defects (18 sources) Visual impairment; Translations: [Unspecified visual loss] Onset: 04-23-2022 04-23-2022 Chronic Disorders of lipid metabolism (20 sources) Hyperlipidemia; Translations: [Other and unspecified hyperlipidemia] Onset: 04-23-2022 06-14-2022 Chronic Essential hypertension (20 sources) Hypertensive disorder; Translations: [Unspecified essential hypertension] Onset: 04-23-2022 06-14-2022 Chronic Glaucoma (18 sources) Glaucoma; Translations: [Unspecified glaucoma] Onset: 04-23-2022 04-23-2022 Chronic Hyperplasia of prostate (10 sources) Benign prostatic hypertrophy with outflow obstruction; Translations: [Benign prostatic hyperplasia with lower urinary tract symptoms] Onset: 03-20-2023 03-20-2023 Chronic Immunizations and screening for infectious disease (4 sources) Patient encounter status; Translations: [Other specified vaccination] Episodic Joint disorders and dislocations; trauma-related (4 sources) Derangement of left knee; Translations: [Unspecified internal derangement of left knee] Onset: 03-28-2023 03-28-2023 Chronic Osteoarthritis (9 sources) Degenerative joint disease involving multiple joints; Translations: [Polyosteoarthritis , unspecified] Onset: 03-13-2023 03-13-2023 Chronic Other circulatory disease (1 source) Raynaud's phenomenon; Translations: [Raynaud's syndrome without gangrene] 07-10-2023 Chronic Other circulatory disease (2 sources) Raynaud's syndrome without gangrene; Translations: [Raynaud's syndrome without gangrene] Onset: 01-07-2023 Chronic Other ear and sense organ disorders (18 sources) Hearing difficulty; Translations: [Unspecified hearing loss] Onset: 04-23-2022 04-23-2022 Chronic Other lower respiratory disease (1 source) Other nonspecific abnormal finding of lung field; Translations: [Other nonspecific abnormal finding of lung field] Onset: 12-15-2021 Episodic Residual codes; unclassified (1 source) Body mass index 20-24 - normal; Translations: [Body Mass Index between 19-24, adult] Episodic Rheumatoid arthritis and related disease (20 sources) Rheumatoid arthritis; Translations: [Rheumatoid arthritis] Onset: 04-23-2022 06-14-2022 Chronic Spondylosis; intervertebral disc disorders; other back problems (18 sources) Cervical spondylosis; Translations: [Cervical spondylosis without myelopathy] Onset: 04-23-2022 04-23-2022 Chronic Substance-related disorders (20 sources) Nicotine dependence; Translations: [Tobacco use disorder] Onset: 12-15-2021 Chronic Unclassified (2 sources) CYSTO-URINARY FREQUENCY AND URGENCY Onset: 03-21-2023 Past or Other Problems Problem Classification Problem Date Documented Da te Episodic/Chronic Calculus of urinary tract (10 sources) Urinary bladder stone; Translations: [Calculus in bladder] Onset: 03-20-2023 03-20-2023 Episodic Fever of unknown origin (15 sources) Fever; Translations: [Fever, unspecified] Onset: 04-23-2022 Resolved: 04-23-2022 04-23-2022 Episodic Genitourinary symptoms and ill-defined conditions (10 sources) Increased frequency of urination; Translations: [Frequency of micturition] Onset: 03-20-2023 03-20-2023 Episodic Joint disorders and dislocations; trauma-related (17 sources) Tear of medial meniscus of knee; Translations: [Other tear of medial meniscus, current injury, left knee, initial encounter] Onset: 05-02-2023 04-29-2023 Episodic Other diseases of kidney and ureters (2 sources) Other obstructive and reflux uropathy; Translations: [Other obstructive and reflux uropathy] Onset: 03-20-2023 Episodic Other screening for suspected conditions (not mental disorders or infectious disease) (20 sources) Colonoscopy normal; Translations: [Patient encounter status] Onset: 04-23-2022 Resolved: 04-23-2022 04-23-2022 Episodic Comment on above: dr alex 2016; Other upper respiratory infections (18 sources) Acute upper respiratory infection; Translations: [Acute upper respiratory infections of unspecified site] Onset: 04-23-2022 Resolved: 04-23-2022 04-23-2022 Episodic Unclassified (2 sources) Patient encounter status; Translations: [Screening for prostate cancer] Unclassified (11 sources) Onset: 06-14-2022 Resolved: 01-07-2023 06-14-2022 Urinary tract infections (15 sources) Acute urinary tract infection; Translations: [Urinary tract infection, site not specified] Onset: 04-23-2022 Resolved: 04-23-2022 04-23-2022 Episodic Viral infection (18 sources) Herpes zoster; Translations: [Herpes zoster without mention of complication] Onset: 04-23-2022 Resolved: 04-23-2022 04-23-2022 Episodic NEGATED: Highlighted row has not occurred!Residual codes; unclassified (4 sources) Disease Episodic Results Test Name Value Interpretation Reference Range Facility POINT OF CARE ULTRASOUND NO CHARGEon 09-20-2023 POINT OF CARE ULTRASOUND NO CHARGE These images are not reportable by radiology and will not be interpreted by Radiologists. [facility] POINT OF CARE ULTRASOUND NO CHARGEon 06-20-2023 POINT OF CARE ULTRASOUND NO CHARGE These images are not reportable by radiology and will not be interpreted by Radiologists. Normal [facility] US Abdomenon 06-20-2023 These images are not reportable by radiology and will not be interpreted by Radiologists. IMAGING XR Knee - left 4 Viewson 1. Unremarkable left knee radiographs. MACRO: None. Signed by: eDbora Weeks 05/03/2023 7:06 PM Dictation workstation: [id number] MMODAL Interpreted By: Debora Francisco, STUDY: Left knee, 4 views. INDICATION: Signs/Symptoms:PAIN. COMPARISON: 03/13/2023. ACCESSION NUMBER(S): [id number] ORDERING CLINICIAN: NERI BROWN FINDINGS: No acute fracture or malalignment. Joint spaces are well maintained. No significant knee joint effusion. Femoral and tibial artery vascular calcifications. MMODAL Debora Weeks MD - 05/03/2023 Interpreted By: Debora Weeks, STUDY: Left knee, 4 views. INDICATION: Signs/Symptoms:PAIN. COMPARISON: 03/13/2023. ACCESSION NUMBER(S): [id number] ORDERING CLINICIAN: NERI BROWN FINDINGS: No acute fracture or malalignment. Joint spaces are well maintained. No significant knee joint effusion. Femoral and tibial artery vascular calcifications. IMPRESSION: 1. Unremarkable left knee radiographs. MACRO: None. Signed by: Debora Weeks 05/03/2023 7:06 PM Dictation workstation: [id number] [facility] Work Phone: XR Knee - left 4 ViewsOrdere d By: Debora Weeks on 05-03-2023 [facility] Work Phone: XR KNEE LEFT 4+ VIEWSon XR KNEE LEFT 4+ VIEWS Interpreted By: Debora Weeks, STUDY: Left knee, 4 views. INDICATION: Signs/Symptoms:PAIN. COMPARISON: 03/13/2023. ACCESSION NUMBER(S): [id number] ORDERING CLINICIAN: NERI BROWN FINDINGS: No acute fracture or malalignment. Joint spaces are well maintained. No significant knee joint effusion. Femoral and tibial artery vascular calcifications. IMPRESSION: 1. Unremarkable left knee radiographs. MACRO: None. Signed by: Debora Weeks 05/03/2023 7:06 PM Dictation workstation: [id number] [facility] XR Knee - left 4 Viewson Radiology Study observation (narrative) [facility] Work Phone: MR KNEE LEFT WO IV CONTRASTo n 03-28-2023 MR KNEE LEFT WO IV CONTRAST Interpreted By: Darian Lees and Marshall Colin STUDY: MRI of the left knee with out contrast INDICATION: Signs/Symptoms:Pain locking COMPARISON: Left knee radiographs dated 03/13/2023. ACCESSION NUMBER(S): [id number] ORDERING CLINICIAN: KYLE ANTHONY TECHNIQUE: Multiplanar multisequence MRI of the left knee was performed without intravenous contrast. FINDINGS: Menisci: Incomplete radial tear of the lateral meniscus posterior root. The medial meniscus is intact. Cruciate ligaments: Intact. Collateral ligaments: Intact. Tendons: The tendons including the extensor mechanism are intact. Muscles: Intact. Bones: No evidence of acute fracture. Nonspecific T2 hyperintense heterogeneity of the bone marrow. Articular cartilage: Medial compartment: Mild cartilage thinning and fibrillation of the medial tibiofemoral compartment articulation. Patellofemoral compartment: Mild fibrillation of the median trochlear groove of the femoral condyle. Lateral compartment: Mild cartilage thinning and fibrillation of the lateral tibiofemoral compartment articulation. Miscellaneous: Small suprapatellar knee joint effusion. Mild prepatellar soft tissue edema. IMPRESSION: 1. Incomplete radial tear of the lateral meniscus posterior root. 2. 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 3. Small suprapatellar knee joint effusion and mild prepatellar soft tissue edema. I personally reviewed the images/study and I agree with the resident findings as stated. This study was interpreted at [place], [place]. MACRO: None. Signed by: Darian Lees 03/28/2023 10:33 AM Dictation workstation: [id number] [facility] MR Knee - left WO contraston 03-28-2023 1. Incomplete radial tear of the lateral meniscus posterior root. 2. 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 3. Small suprapatellar knee joint effusion and mild prepatellar soft tissue edema. I personally reviewed the images/study and I agree with the resident findings as stated. This study was interpreted at [place], [place]. MACRO: None. Signed by: Darian Lees 03/28/2023 10:33 AM Dictation workstation: [id number] [facility] Interpreted By: Darian Byers and Marshall Colin STUDY: MRI of the left knee with out contrast INDICATION: Signs/Symptoms:Pain locking COMPARISON: Left knee radiographs dated 03/13/2023. ACCESSION NUMBER(S): [id number] ORDERING CLINICIAN: KYLE ANTHONY TECHNIQUE: Multiplanar multisequence MRI of the left knee was performed without intravenous contrast. FINDINGS: Menisci: Incomplete radial tear of the lateral meniscus posterior root. The medial meniscus is intact. Cruciate ligaments: Intact. Collateral ligaments: Intact. Tendons: The tendons including the extensor mechanism are intact. Muscles: Intact. Bones: No evidence of acute fracture. Nonspecific T2 hyperintense heterogeneity of the bone marrow. Articular cartilage: Medial compartment: Mild cartilage thinning and fibrillation of the medial tibiofemoral compartment articulation. Patellofemoral compartment: Mild fibrillation of the median trochlear groove of the femoral condyle. Lateral compartment: Mild cartilage thinning and fibrillation of the lateral tibiofemoral compartment articulation. Miscellaneous: Small suprapatellar knee joint effusion. Mild prepatellar soft tissue edema. MMODAL Darian Lees MD - 03/28/2023 Interpreted By: Darian Lees and Marshall Colin STUDY: MRI of the left knee with out contrast INDICATION: Signs/Symptoms:Pain locking COMPARISON: Left knee radiographs dated 03/13/2023. ACCESSION NUMBER(S): [id number] ORDERING CLINICIAN: KYLE ANTHONY TECHNIQUE: Multiplanar multisequence MRI of the left knee was performed without intravenous contrast. FINDINGS: Menisci: Incomplete radial tear of the lateral meniscus posterior root. The medial meniscus is intact. Cruciate ligaments: Intact. Collateral ligaments: Intact. Tendons: The tendons including the extensor mechanism are intact. Muscles: Intact. Bones: No evidence of acute fracture. Nonspecific T2 hyperintense heterogeneity of the bone marrow. Articular cartilage: Medial compartment: Mild cartilage thinning and fibrillation of the medial tibiofemoral compartment articulation. Patellofemoral compartment: Mild fibrillation of the median trochlear groove of the femoral condyle. Lateral compartment: Mild cartilage thinning and fibrillation of the lateral tibiofemoral compartment articulation. Miscellaneous: Small suprapatellar knee joint effusion. Mild prepatellar soft tissue edema. IMPRESSION: 1. Incomplete radial tear of the lateral meniscus posterior root. 2. 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 3. Small suprapatellar knee joint effusion and mild prepatellar soft tissue edema. I personally reviewed the images/study and I agree with the resident findings as stated. This study was interpreted at [place], [place]. MACRO: None. Signed by: Darian Lees 03/28/2023 10:33 AM Dictation workstation: [id number] [facility] Work Phone: Radiology Study observation (narrative) [facility] Work Phone: MR Knee - left WO contrastOr dered By: Darian Lees on 03-28-2023 [facility] Work Phone: XR PELVIS 1-2 VIEWSon 2023 XR PELVIS 1-2 VIEWS Interpreted By: Loy Evans, STUDY: XR PELVIS 1-2 VIEWS; 03/18/2023 10:40 am INDICATION: Signs/Symptoms:Follow-up on abnormality seen in AP film. COMPARISON: 03/13/2013 ACCESSION NUMBER(S): [id number] ORDERING CLINICIAN: KYLE ANTHONY FINDINGS: 16 mm calcification on the frontal view projects just to the left of the pubic symphysis. On the lateral view this appears to be posterior to the pubic symphysis in the region of the prostate or neck of the bladder. No pelvic fracture identified. IMPRESSION: 16 mm coarse pelvic calcification probably in the prostate or neck of the urinary bladder. Signed by: Loy Evans 03/19/2023 9:23 AM Dictation workstation: [id number] [facility] XR HIP LEFT WITH PELVIS WHEN PERFORMED 2 OR 3 VIEWSon 03-13-2023 XR HIP LEFT WITH PELVIS WHEN PERFORMED 2 OR 3 VIEWS Interpreted By: Narendra Reyna, STUDY: XR HIP LEFT WITH PELVIS WHEN PERFORMED 2 OR 3 VIEWS; ; 03/13/2023 9:03 am INDICATION: Signs/Symptoms:pain. COMPARISON: None. ACCESSION NUMBER(S): [id number] ORDERING CLINICIAN: KYLE ANTHONY FINDINGS: No fracture dislocation bone lesion or joint effusion. Mild joint space loss with miniscule spurring. The left hip appears similar to the contralateral right hip. Minimal arthritic changes of the SI joints appearing symmetric. 16 mm lobulated calcification projected in the pubic symphysis. The precise location difficult to assess without a lateral view. This may be the result of a prostate calcifications, bladder calcification or soft tissue myositis ossificans. Additional imaging would be necessary to assess the precise location. IMPRESSION: Minimal arthritic changes not out of proportion to patient's age. No acute findings of the left hip. 16 mm lobulated calcification lower pelvis, precise location difficult to assess without a lateral view. If additional information is needed please feel free to call the x-ray department for personal review of this case. Signed by: Narendra Reyna 03/14/2023 3:26 PM Dictation workstation: [id number] [facility] XR KNEE LEFT 3 VIEWSon 03-13 XR KNEE LEFT 3 VIEWS Interpreted By: Narendra Reyna, STUDY: XR KNEE LEFT 3 VIEWS; ; 03/13/2023 9:05 am INDICATION: Signs/Symptoms:pain. COMPARISON: None. ACCESSION NUMBER(S): [id number] ORDERING CLINICIAN: KYLE ANTHONY FINDINGS: No acute fracture or dislocation. No bone lesion. Joint space is normal. No joint effusion. Mild peripheral vascular disease IMPRESSION: No acute findings. MACRO: None Signed by: Narendra Reyna 03/14/2023 1:47 PM Dictation workstation: [id number] [facility] Lipid 1996 panelon 3 Cholesterol [Mass/Vol] 163 mg/dL Normal 0-199 [facility] Comment on above: Result Comment: Age Desirable Borderline High High 0-19 Y 0 - 169 170 - 199 >/= 200 20-24 Y 0 - 189 190 - 224 >/= 225 >24 Y 0 - 199 200 - 239 >/= 240 All ranges are based on fasting samples. Specific therapeutic targets will vary based on patient-specific cardiac risk. Pediatric guidelines reference:Pediatrics 2011, 128(S5).Adult guidelines reference: NCEP ATPIII Guidelines,KATERINE 2001, 258:2486-97 Venipuncture immediately after or during the administration of Metamizole may lead to falsely low results. Testing should be performed immediately prior to Metamizole dosing. Performed By: #### 2 4331-1 #### JACQUES PARISI ([id number]) [facility] ([facility]) [address] [place] [id number] Cholesterol in HDL [Mass/Vol] 64.0 mg/dL Normal [facility] Comment on above: Result Comment: Age Very Low Low Normal High 0-19 Y < 35 < 40 40-45 ---- 20-24 Y ---- < 40 >45 ---- >24 Y ---- < 40 40-60 >60 Performed By: #### 2 4331-1 #### JACQUES PARISI ([id number]) [facility] ([facility]) [address] [place] [id number] Cholesterol in LDL [Mass/Vol] 84 mg/dL Normal <=99 [facility] Comment on above: Result Comment: Near Borderline AGE Desirable Optimal High High Very High 0-19 Y 0 - 109 --- 110-129 >/= 130 ---- 20-24 Y 0 - 119 --- 120-159 >/= 160 ---- >24 Y 0 - 99 100-129 130-159 160-189 >/=190 Performed By: #### 2 4331-1 #### JACQUES PARISI ([id number]) [facility] ([facility]) [address] [place] [id number] Cholesterol in VLDL [Mass/Vol] 15 mg/dL Normal 0-40 [facility] Comment on above: Performed By: #### 2 4331-1 #### JACQUES PARISI ([id number]) [facility] ([facility]) [address] [place] [address] CHOLESTEROL/HDL RATIO 2.5 Normal [facility] Comment on above: Result Comment: Ref Values Desirable < 3.4 High Risk > 5.0 Performed By: #### 2 4331-1 #### JACQUES PARISI ([id number]) [facility] ([facility]) [facility] [place] [address] NON HDL CHOLESTEROL 99 mg/dL Normal 0-149 [facility] Comment on above: Result Comment: Age Desirable Borderline High High Very High 0-19 Y 0 - 119 120 - 144 >/= 145 >/= 160 20-24 Y 0 - 149 150 - 189 >/= 190 ---- >24 Y 30 mg/dL above LDL Cholesterol goal Performed By: #### 2 4331-1 #### JACQUES PARISI ([id number]) [facility] ([facility]) [address] [place] [address] Triglyceride [Mass/Vol] 75 mg/dL Normal 0-149 [facility] Comment on above: Result Comment: Age Desirable Borderline High High Very High 0 D-90 D 19 - 174 ---- ---- ---- 91 D- 9 Y 0 - 74 75 - 99 >/= 100 ---- 10-19 Y 0 - 89 90 - 129 >/= 130 ---- 20-24 Y 0 - 114 115 - 149 >/= 150 ---- >24 Y 0 - 149 150 - 199 200- 499 >/= 500 Venipuncture immediately after or during the administration of Metamizole may lead to falsely low results. Testing should be performed immediately prior to Metamizole dosing. Performed By: #### 2 4331-1 #### JACQUES PARISI ([id number]) [facility] ([facility]) [address] [place] [address] Prostate specific Agon 01-07 Prostate specific Ag [Mass/Vol] 0.76 ng/mL Normal <=4.00 [facility] Comment on above: Order Comment: The DA requires that the method used for PSA assay be reported to the physician. Values obtained with different assay methods must not be used interchangeably. This test was performed at [facility] using the [employer] PSA assay is a two-site immunoenzymatic sandwich assay. The assay is approved for measurement of prostate-specific antigen (PSA)in serum and may be used in conjunction with a digital rectal examination in men 50 years and older as an aid in detection of prostate cancer. 7-Tffpa-rzqjptcvu inhibitors (e.g. Proscar, Finasteride, Avodart, Dutasteride and Eunice) for the treatment of BPH have been shown to lower PSA levels by an average of 50% after 6 months of treatment. Performed By: #### 2 857-1 #### HANNA AILIN ([id number]) [facility] ([facility]) [address] [place] [address] CT CHEST WO CONTRASTon 12-15 CT CHEST WO CONTRAST Patient Name: SARAI COE STUDY: CT CHEST WO CONTRAST; 12/15/2021 2:09 pm INDICATION: PULMONARY NODULES F17.210: Nicotine dependence, cigarettes, uncomplicated. COMPARISON: 02/22/2020 ACCESSION NUMBER(S): [id number] ORDERING CLINICIAN: KYEL ANTHONY TECHNIQUE: Helical data acquisition of the chest was obtained without IV contrast material. Images were reformatted in axial, coronal, and sagittal planes. FINDINGS: LUNGS AND AIRWAYS: The trachea and central airways are patent. No endobronchial lesion. There is mild emphysematous changes in the lungs. There is no focal lung consolidation. There is no effusion. Redemonstration of multiple lung nodules. These include a 3 mm nodule in the left upper lobe in image 43; a 3 mm nodule in the left upper lobe image 71; a 4 mm nodule in the right lower lobe image 128. A 4 mm nodule in the left lower lobe in image 175 centrally; a 7 mm nodule in the right upper lobe anteriorly along the major fissure image 172 and 5 mm nodule in the left lower lobe in image 93. Several smaller 1-2 mm nodules also present. No new suspicious nodules seen. MEDIASTINUM AND KEENA, LOWER NECK AND AXILLA: The visualized thyroid gland is within normal limits. No evidence of thoracic lymphadenopathy by CT criteria. Esophagus appears within normal limits as seen. HEART AND VESSELS: The thoracic aorta is dilated measuring up to 4.3 cm in its ascending portion with moderate vascular calcifications. Main pulmonary artery and its branches are normal in caliber. Severe coronary artery calcifications are seen. The study is not optimized for evaluation of coronary arteries. The cardiac chambers are not enlarged. No evidence of pericardial effusion. UPPER ABDOMEN: The visualized subdiaphragmatic structures demonstrate no new findings. Redemonstration of a low-attenuation lesion in the left hepatic lobe, similar to the prior. Left renal calculus present. These findings are unchanged from the prior. Redemonstration of a intermediate attenuation lesion in the left renal superior pole, similar to the prior. CHEST WALL AND OSSEOUS STRUCTURES: There are no suspicious osseous lesions. Mild spondylotic changes with osteophytosis in the midthoracic spine IMPRESSION: 1. Redemonstration of multiple lung nodules bilaterally, the largest measuring 7 mm in the right upper lobe anteriorly, unchanged in size and number from the prior. Recommend follow-up in 1 year to document stability 2. Dilatation of the thoracic aorta measuring up to 4.3 cm in its ascending portion. Moderate vascular calcifications. 3. Redemonstration of nonspecific liver and kidney findings, similar to the prior Electronically signed by: DARIAN LEES MD Normal [facility] Tobacco Screening.on 022 Fall risk assessment a) No falls within the last year [facility] Work Phone: Tobacco use status CPHS a) Yes [facility] Work Phone: Tobacco Screening. Yes [employer] [facility] Work Phone: CBCon 11-27-2021 Erythrocyte distribution width (RBC) [Ratio] 13.9 % Normal 11.5 - 14.5 [facility] Comment on above: Performed By: #### C BC #### [address] [address] Hematocrit (Bld) [Volume fraction] 43.5 % Normal 41.0 - 52.0 [facility] Comment on above: Performed By: #### C BC #### [address] [address] Hemoglobin (Bld) [Mass/Vol] 14.5 g/dL Normal 13.5 - 17.5 [facility] Comment on above: Performed By: #### C BC #### [address] [address] MCHC (RBC) [Mass/Vol] 33.3 g/dL Normal 32.0 - 36.0 [facility] Comment on above: Performed By: #### C BC #### [address] [address] MCV (RBC) [Entitic vol] 106 fL High 80 - 100 [facility] Comment on above: Performed By: #### C BC #### [address] [address] Platelets (Bld) [#/Vol] 252 10*3/uL Normal 150 - 450 [facility] Comment on above: Performed By: #### C BC #### [address] [address] RBC 4.11 x10E12/L Low 4.50 - 5.90 [facility] Comment on above: Performed By: #### C BC #### [address] [address] WBC (Bld) [#/Vol] 5.3 10*3/uL Normal 4.4 - 11.3 [facility] [place] Comment on above: Performed By: #### C BC #### [address] [address] COMPREHENSIVE PANELon 2021 Albumin [Mass/Vol] 4.5 g/dL Normal 3.4 - 5.0 [facility] [place] Comment on above: Performed By: #### C MP #### [address] [address] ALP [Catalytic activity/Vol] 71 U/L Normal 33 - 136 [facility] Comment on above: Performed By: #### C MP #### [address] [address] ALT [Catalytic activity/Vol] 19 U/L Normal 10 - 52 [facility] Comment on above: Result Comment: Eliana ents treated with Sulfasalazine may generate falsely decreased results for ALT. Performed By: #### C MP #### [address] [address] Anion gap [Moles/Vol] 10 mmol/L Normal 10 - 20 [facility] Comment on above: Performed By: #### C MP #### [address] [address] AST [Catalytic activity/Vol] 20 U/L Normal 9 - 39 [facility] Comment on above: Performed By: #### C MP #### [address] [address] Bilirubin [Mass/Vol] 0.6 mg/dL Normal 0.0 - 1.2 [facility] Comment on above: Performed By: #### C MP #### [address] [address] Calcium [Mass/Vol] 9.3 mg/dL Normal 8.6 - 10.3 [facility] [place] Comment on above: Performed By: #### C MP #### [address] [address] Chloride [Moles/Vol] 107 mmol/L Normal 98 - 107 [facility] Comment on above: Performed By: #### C MP #### [address] [address] Creatinine [Mass/Vol] 0.99 mg/dL Normal 0.50 - 1.30 [facility] Comment on above: Performed By: #### C MP #### [address] [address] GFR/1.73 sq M.predicted among non-blacks MDRD (S/P/Bld) [Vol rate/Area] 78 mL/min/{1.73_m2} Normal >90 [facility] Comment on above: Result Comment: CALC ULATIONS OF ESTIMATED GFR ARE PERFORMED USING THE 2020 CKD-EPI STUDY REFIT EQUATION WITHOUT THE RACE VARIABLE FOR THE IDMS-TRACEABLE CREATININE METHODS. https://jasn.asnjournals.org/content/early//ASN.601975895 8 Performed By: #### C MP #### [address] [address] Glucose [Mass/Vol] 102 mg/dL High 74 - 99 [facility] [place] Comment on above: Performed By: #### C MP #### [address] [address] HCO3 (Bld) [Moles/Vol] 30 mmol/L Normal 21 - 32 [facility] Comment on above: Performed By: #### C MP #### [address] [address] Potassium [Moles/Vol] 4.6 mmol/L Normal 3.5 - 5.3 [facility] Comment on above: Performed By: #### C MP #### [address] [address] Protein [Mass/Vol] 7.0 g/dL Normal 6.4 - 8.2 [facility] [place] Comment on above: Performed By: #### C MP #### [address] [address] Sodium [Moles/Vol] 142 mmol/L Normal 136 - 145 [facility] [place] Comment on above: Performed By: #### C MP #### [address] [address] Urea nitrogen [Mass/Vol] 23 mg/dL Normal 6 - 23 [facility] Comment on above: Performed By: #### C MP #### [address] [address] LIPID PANEL (CORONARY RISK 2 )on 11-27-2021 Cholesterol [Mass/Vol] 145 mg/dL Normal 0 - 199 [facility] Comment on above: Result Comment: . AGE DESIRABLE BORDERLINE HIGH HIGH 0-19 Y 0 - 169 170 - 199 >/= 200 20-24 Y 0 - 189 190 - 224 >/= 225 >24 Y 0 - 199 200 - 239 >/= 240 All ranges are based on fasting samples. Specific therapeutic targets will vary based on patient-specific cardiac risk. . Pediatric guidelines reference:Pediatrics 2011, 128(S5). Adult guidelines reference: NCEP ATPIII Guidelines, KATERINE 2001, 258:7646-97 . Venipuncture immediately after or during the administration of Metamizole may lead to falsely low results. Testing should be performed immediately prior to Metamizole dosing. Performed By: #### L IPID #### [address] [address] Cholesterol in HDL [Mass/Vol] 59.0 mg/dL Normal [facility] Comment on above: Result Comment: . AGE VERY LOW LOW NORMAL HIGH 0-19 Y < 35 < 40 40-45 ---- 20-24 Y ---- < 40 >45 ---- >24 Y ---- < 40 40-60 >60 . Performed By: #### L IPID #### [address] [address] Cholesterol in LDL [Mass/Vol] 71 mg/dL Normal 0 - 99 [facility] Comment on above: Result Comment: . NEAR BORD AGE DESIRABLE OPTIMAL HIGH HIGH VERY HIGH 0-19 Y 0 - 109 --- 110-129 >/= 130 ---- 20-24 Y 0 - 119 --- 120-159 >/= 160 ---- >24 Y 0 - 99 100-129 130-159 160-189 >/=190 . Performed By: #### L IPID #### [address] [address] Cholesterol in VLDL [Mass/Vol] 15 mg/dL Normal 0 - 40 [facility] Comment on above: Performed By: #### L IPID #### [address] [address] Cholesterol.total/ Cholesterol in HDL [Mass ratio] 2.5 {ratio} Normal [facility] Comment on above: Result Comment: REF VALUES DESIRABLE < 3.4 HIGH RISK > 5.0 Performed By: #### L IPID #### [address] [address] Triglyceride [Mass/Vol] 74 mg/dL Normal 0 - 149 [facility] Comment on above: Result Comment: . AGE DESIRABLE BORDERLINE HIGH HIGH VERY HIGH 0 D-90 D 19 - 174 ---- ---- ---- 91 D- 9 Y 0 - 74 75 - 99 >/= 100 ---- 10-19 Y 0 - 89 90 - 129 >/= 130 ---- 20-24 Y 0 - 114 115 - 149 >/= 150 ---- >24 Y 0 - 149 150 - 199 200- 499 >/= 500 . Venipuncture immediately after or during the administration of Metamizole may lead to falsely low results. Testing should be performed immediately prior to Metamizole dosing. Performed By: #### L IPID #### [facility] [address] [place] [id number] Laboratory - Chemistry and C hemistry - challengeon 11-27-2021 Albumin BCP dye [Mass/Vol] 4.5 g/dL 3.4 - 5.0 [facility] Work Phone: ALP [Catalytic activity/Vol] 71 U/L 33 - 136 [facility] Work Phone: ALT With P-5'-P [Catalytic activity/Vol] 19 U/L 10 - 52 [facility] Work Phone: [phone] Comment on above: Patients treated wit h Sulfasalazine may generate falsely decreased results for ALT. Anion gap [Moles/Vol] 10 mmol/L 10 - 20 [facility] Work Phone: AST With P-5'-P [Catalytic activity/Vol] 20 U/L 9 - 39 [facility] Work Phone: Bilirubin [Mass/Vol] 0.6 mg/dL 0.0 - 1.2 [facility] [facility] Work Phone: Calcium [Mass/Vol] 9.3 mg/dL 8.6 - 10.3 -[facility] ical [employer] [facility] Work Phone: Chloride [Moles/Vol] 107 mmol/L 98 - 107 [facility] Work Phone: CO2 [Moles/Vol] 30 mmol/L 21 - 32 [facility] [employer] [facility] Work Phone: Creatinine [Mass/Vol] 0.99 mg/dL See Below [facility] Work Phone: [phone] Comment on above: Reference Range: 0.5 0 - 1.30 Glucose [Mass/Vol] 102 mg/dL above high threshold 74 - 99 [facility] Work Phone: [phone] Potassium [Moles/Vol] 4.6 mmol/L 3.5 - 5.3 -[facility] Work Phone: [phone] Protein [Mass/Vol] 7.0 g/dL 6.4 - 8.2 -[facility] Work Phone: [phone] Sodium [Moles/Vol] 142 mmol/L 136 - 145 -[facility] Work Phone: [phone] Urea nitrogen [Mass/Vol] 23 mg/dL 6 - 23 [facility] Work Phone: [phone] Laboratory - Hematology and Cell countson 11-27-2021 Erythrocyte distribution width (RBC) [Ratio] 13.9 % See Below [facility] Work Phone: [phone] Comment on above: Reference Range: 11. 5 - 14.5 Hematocrit (Bld) [Volume fraction] 43.5 % See Below [facility] Work Phone: [phone] Comment on above: Reference Range: 41. 0 - 52.0 Hemoglobin (Bld) [Mass/Vol] 14.5 g/dL See Below [facility] Work Phone: [phone] Comment on above: Reference Range: 13. 5 - 17.5 MCHC (RBC) [Mass/Vol] 33.3 g/dL See Below [facility] Work Phone: [phone] Comment on above: Reference Range: 32. 0 - 36.0 MCV (RBC) [Entitic vol] 106 fL above high threshold 80 - 100 [facility] Work Phone: [phone] Platelets (Bld) [#/Vol] 252 10*3/uL 150 - 450 [facility] Work Phone: [phone] RBC (Bld) [#/Vol] 4.11 {x10E12/L} below low threshold See Below [facility] Work Phone: Comment on above: Reference Range: 4.5 0 - 5.90 WBC (Bld) [#/Vol] 5.3 10*3/uL 4.4 - 11.3 [employer] [facility] [employer] [facility] Work Phone: Lipid Panelon 11-27-2021 Cholesterol [Mass/Vol] 145 mg/dL 0 - 199 [facility] Work Phone: [phone] Comment on above: . AGE DESIRABLE BORD MURIEL HIGH HIGH 0-19 Y 0 - 169 170 - 199 >/= 200 20-24 Y 0 - 189 190 - 224 >/= 225 >24 Y 0 - 199 200 - 239 >/= 240 All ranges are based on fasting samples. Specific therapeutic targets will vary based on patient-specific cardiac risk.. Pediatric guidelines reference:Pediatrics 2011, 128(S5). Adult guidelines reference: NCEP ATPIII Guidelines, KATERINE 2001, 258:2486-97. Venipuncture immediately after or during the administration of Metamizole may lead to falsely low results. Testing should be performed immediately prior to Metamizole dosing. Cholesterol in HDL [Mass/Vol] 59.0 mg/dL [facility] Work Phone: Comment on above: . AGE VERY LOW LOW N ORMAL HIGH 0-19 Y < 35 < 40 40-45 ---- 20- 24 Y ---- < 40 >45 ---- >24 Y ---- < 40 40-60 >60. Cholesterol in LDL [Mass/Vol] 71 mg/dL 0 - 99 [facility] Work Phone: Comment on above: . NEAR BORD AGE KAI RABLE OPTIMAL HIGH HIGH VERY HIGH 0-19 Y 0 - 109 --- 110-129 >/= 130 ---- 20-24 Y 0 - 119 --- 120-159 >/= 160 ---- >24 Y 0 - 99 100-129 130-159 160-189 >/=190. Cholesterol.total/ Cholesterol in HDL [Mass ratio] 2.5 {ratio} [facility] Work Phone: [phone] Comment on above: REF VALUESDESIRABLE < 3.4HIGH RISK > 5.0 Triglyceride [Mass/Vol] 74 mg/dL 0 - 149 [facility] Work Phone: Comment on above: . AGE DESIRABLE BORD MURIEL HIGH HIGH VERY HIGH 0 D-90 D 19 - 174 ---- ---- ----91 D- 9 Y 0 - 74 75 - 99 >/= 100 ---- 10-19 Y 0 - 89 90 - 129 >/= 130 ---- 20-24 Y 0 - 114 115 - 149 >/= 150 ---- >24 Y 0 - 149 150 - 199 200- 499 >/= 500. Venipuncture immediately after or during the administration of Metamizole may lead to falsely low results. Testing should be performed immediately prior to Metamizole dosing. Lipid Panel 15 mg/dL 0 - 40 [employer] [facility] Work Phone: No Panel Informationon 11-27 78 {mL/min/1.73m2} >90 [facility] [facility] Work Phone: Comment on above: CALCULATIONS OF ARINA MATED GFR ARE PERFORMED USING THE 2020 CKD-EPI STUDY REFIT EQUATION WITHOUT THE RACE VARIABLE FOR THE IDMS-TRACEABLE CREATININE METHODS.https://jasn.asnjournals.org/content//ASN.2 350642810 PROSTATE SPEC.AG,SCREENon PROSTATE SPEC.AG,SCREEN 0.79 ng/mL Normal 0.00 - 4.00 [facility] Comment on above: Result Comment: The FDA requires that the method used for PSA assay be reported to the physician. Values obtained with different assay methods must not be used interchangeably. This test was performed at [facility] using the [employer] PSA assay is a two-site immunoenzymatic sandwich assay. The assay is approved for measurement of prostate-specific antigen (PSA)in serum and may be used in conjunction with a digital rectal examination in men 50 years and older as an aid in detection of prostate cancer. 3-Zblze-rqzmstphg inhibitors (e.g. Proscar, Finasteride, Avodart, Dutasteride and Eunice) for the treatment of BPH have been shown to lower PSA levels by an average of 50% after 6 months of treatment. Performed By: #### P [facility] #### [address] [place] [address] Prostate Spec.Ag, Screenon 1 Prostate specific Ag [Mass/Vol] 0.79 ng/mL See Below [facility] Work Phone: Comment on above: Reference Range: 0.0 0 - 4.00The FDA requires that the method used for PSA assay be reported to the physician. Values obtained with different assay methods must not be used interchangeably. This testwas performed at [facility] using the [employer] PSA assay is a two-site immunoenzymatic sandwich assay. The assay is approved for measurement of prostate-specific antigen (PSA)in serum and may be used in conjunction with a digital rectal examination in men 50 years and older as an aid in detection of prostate cancer.7-Euddp-qjabeadaq inhibitors (e.g. Proscar, Finasteride, Avodart, Dutasteride and Eunice) for the treatment of BPH have been shown to lower PSA levels by an average of 50% after 6 months of treatment. Medicare Annual Wellness Vis iton 05-22-2021 Medicare Annual Wellness Visit *Chief Complaint MCW..6 MO FU HTN,HL History of Present Illness The patient is being seen for the subsequent annual wellness visit. Past Medical, Surgical and Family History: reviewed and updated in chart. Interval History: Patient has not been hospitalized previously. Medications and Supplements: Review of all medications by a prescribing practitioner or clinical pharmacist (such as prescriptions, OTCs, herbal therapies and supplements) documented in the medical record. No, the patient is not using opioids. Health Risk Assessment:. Paper HRA completed by patient and scanned into chart. Patient Self Assessment of Health Status: good. Tobacco use: User He pipe. He has declined tobacco cessation intervention. Alcohol use: User, As noted in social history 1/d. Illicit drug use: Non-User Current diet: well balanced diet. Exercise Frequency: the patient does not exercise. Depression/Suicide Screening: . During the past 2 weeks, the patient has not felt down, depressed or hopeless. During the past 2 weeks, the patient has not felt little interest or pleasure in doing things. Hearing Impairment: Patient has significant hearing impairment, He uses a hearing aid. Cognitive Impairment: No cognitive impairment observed. Bathing: performs independently. Dressing: performs independently. Walking: performs independently. Toileting: performs independently. Feeding: performs independently. Personal Hygiene: performs independently. Bowels: continent. Bladder: continent. Managing Finances: performs independently. Shopping: performs independently. Managing Medications: performs independently. Housework / Basic Home Maintenance: performs independently. Handling Transportation: performs independently. Preparing Meals: performs independently. Using the Telephone/ Communication Devices: performs independently. Falls Risk Screening:. SARAI has not fallen in the last 6 months. Home safety risk factors: none. Advance directives:. Advance Care Planning discussed and documented in the medical record, patient did not wish or was not able to name a surrogate decision maker or provide an advance care plan. Patient has living will. Patient has healthcare POA. Since the last office visit there have been no interval operations, hospitalizations, important illnesses or injuries. HTN-Takes and tolerates meds without side effects. No alcohol. no tobacco. no exercise. low salt. Reviewed recommendation for 150 minutes of exercise per week including 2 days of weight training if over age 50 Hyperlipidemia- is on statin and a prudent diet. ra- no rx, sees se q yr eye dr cm and pressures at goal Review of Systems General-no fatigue weight to within 10 pounds ENT no problems with vision swallowing Cardiac no chest pains palpitations change in exercise tolerance or capacity Pulmonary no cough shortness of breath GI no heartburn or abdominal pain Musculoskeletal no joint pains *Active Problems Acute URI (465.9) (J06.9) Acute UTI (599.0) (N39.0) Cigarette nicotine dependence (305.1) (F17.210) Elevated LFTs (790.6) (R79.89) Encounter for immunization (V03.89) (Z23) Encounter for screening for lung cancer (V76.0) (Z12.2) Fever (780.60) (R50.9) Glaucoma (365.9) (H40.9) Hearing difficulty (389.9) (H91.90) Hyperlipemia (272.4) (E78.5) Hypertension (401.9) (I10) Other spondylosis, cervical region (721.0) (M47.892) Rheumatoid arthritis (714.0) (M06.9) Screening for prostate cancer (V76.44) (Z12.5) Shingles (053.9) (B02.9) Vision decreased (369.9) (H54.7) Past Medical History History of Normal colonoscopy dr alex 2015 Surgical History History of Appendectomy History of Colonoscopy History of Eye surgery x 5 repair glaucoma History of Ganglion cyst excision History of Hernia repair History of Skin biopsy History of Tonsillectomy with adenoidectomy Family History Family history of malignant neoplasm (V16.9) (Z80.9) Family history of diabetes mellitus (V18.0) (Z83.3) Family history of hypertension (V17.49) (Z82.49) Family history of myocardial infarction (V17.3) (Z82.49) Family history of asthma (V17.5) (Z82.5) Family history of diabetes mellitus (V18.0) (Z83.3) Family history of hypertension (V17.49) (Z82.49) Family history of myocardial infarction (V17.3) (Z82.49) Social History Consumes alcohol (V49.89) (Z72.89) Current every day smoker (305.1) (F17.200) PIPE SMOKER, 6 OZ/WK, 3-4X/D X 50 YRS Daily alcohol use Never chewed tobacco (V49.89) (Z78.9) No advance directives (V49.89) (Z78.9) *Allergies No Known Drug Allergies Recorded By: Perla Donahue; 01/06/2019 9:56:20 AM *Current Meds Medication NameInstruction Aspirin 81 MG TABSTAKE 1 TABLET DAILY. hydroCHLOROthiazide 12.5 MG Oral CapsuleTAKE 1 CAPSULE ONCE DAILY. Lovastatin 20 MG Oral TabletTAKE 1 TABLET DAILY. Timolol Maleate 0.5 % Ophthalmic SolutionINSTILL 1 DROP Daily Immunizatio (more content not included)... Normal [employer] Tobacco Screening.on 022 Adult depression screening assessment No [employer] Work Phone: Fall risk assessment a) No falls within the last year -[facility] Work Phone: Tobacco use status CPHS a) Yes [facility] Work Phone: Tobacco Screening. Yes [facility] Work Phone: Medicare Annual Wellness Vis heladio 11-10-2020 Medicare Annual Wellness Visit *Chief Complaint MED CK History of Present Illness The patient is being seen for the subsequent annual wellness visit. Past Medical, Surgical and Family History: reviewed and updated in chart. Interval History: Patient has not been hospitalized previously. Medications and Supplements: Medications and supplements, including calcium and vitamins reviewed and updated in chart. No, the patient is not using opioids. Health Risk Assessment:. Paper HRA completed by patient and scanned into chart. Patient Self Assessment of Health Status: good. Tobacco use: User He pipe. He has declined tobacco cessation intervention. Alcohol use: User, As noted in social history 1/d. Illicit drug use: Non-User Current diet: well balanced diet. Exercise Frequency: the patient does not exercise. Depression/Suicide Screening: . During the past 2 weeks, the patient has not felt down, depressed or hopeless. During the past 2 weeks, the patient has not felt little interest or pleasure in doing things. Covid concerns Hearing Impairment: Patient has significant hearing impairment, He uses a hearing aid. Cognitive Impairment: No cognitive impairment observed. Bathing: performs independently. Dressing: performs independently. Walking: performs independently. Toileting: performs independently. Feeding: performs independently. Personal Hygiene: performs independently. Bowels: continent. Bladder: continent. Managing Finances: performs independently. Shopping: performs independently. Managing Medications: performs independently. Housework / Basic Home Maintenance: performs independently. Handling Transportation: performs independently. Preparing Meals: performs independently. Using the Telephone/ Communication Devices: performs independently. Falls Risk Screening:. SARAI has not fallen in the last 6 months. Home safety risk factors: none. se stopped all arthritis meds after a lft elevation in jan 2020 whichresolved in 1 week when recked. currently on no med and comfortable, when pain return shell use alternate agent,?HC? fu in feb. Since the last office visit there have been no interval operations, hospitalizations, important illnesses or injuries. eyes ok glaucoma controlled HTN-Takes and tolerates meds without side effects. <2/d alcohol. pipe tobacco. no exercise. low salt. Reviewed recommendation for 150 minutes of exercise per week including 2 days of weight training if over age 50 Hyperlipidemia- is on statin and a prudent diet. *Active Problems Acute URI (465.9) (J06.9) Acute UTI (599.0) (N39.0) Cigarette nicotine dependence (305.1) (F17.210) Elevated LFTs (790.6) (R79.89) Encounter for immunization (V03.89) (Z23) Encounter for screening for lung cancer (V76.0) (Z12.2) Fever (780.60) (R50.9) Glaucoma (365.9) (H40.9) Hearing difficulty (389.9) (H91.90) Hyperlipemia (272.4) (E78.5) Hypertension (401.9) (I10) Other spondylosis, cervical region (721.0) (M47.892) Rheumatoid arthritis (714.0) (M06.9) Screening for prostate cancer (V76.44) (Z12.5) Shingles (053.9) (B02.9) Vision decreased (369.9) (H54.7) Past Medical History History of Normal colonoscopy dr alex 2015 Surgical History History of Appendectomy History of Colonoscopy History of Eye surgery x 5 repair glaucoma History of Ganglion cyst excision History of Hernia repair History of Skin biopsy History of Tonsillectomy with adenoidectomy Family History Family history of malignant neoplasm (V16.9) (Z80.9) Family history of diabetes mellitus (V18.0) (Z83.3) Family history of hypertension (V17.49) (Z82.49) Family history of myocardial infarction (V17.3) (Z82.49) Family history of asthma (V17.5) (Z82.5) Family history of diabetes mellitus (V18.0) (Z83.3) Family history of hypertension (V17.49) (Z82.49) Family history of myocardial infarction (V17.3) (Z82.49) Social History Consumes alcohol (V49.89) (Z72.89) Current every day smoker (305.1) (F17.200) PIPE SMOKER, 6 OZ/WK, 3-4X/D X 50 YRS Daily alcohol use Never chewed tobacco (V49.89) (Z78.9) No advance directives (V49.89) (Z78.9) *Allergies No Known Drug Allergies Recorded By: Perla Donahue; 01/06/2019 9:56:20 AM *Current Meds Medication NameInstruction Aspirin 81 MG TABSTAKE 1 TABLET DAILY. hydroCHLOROthiazide 12.5 MG Oral CapsuleTAKE 1 CAPSULE ONCE DAILY. Lovastatin 20 MG Oral TabletTAKE 1 TABLET DAILY. Timolol Maleate 0.5 % Ophthalmic SolutionINSTILL 1 DROP Daily Immunizations FLU --- Series1: 26-Nov-2018; Series2: 27-Oct-2019; Series3: 07-Nov-2020 PCV --- Series1: 02-May-2015 PPSV --- Series1: 17-Apr-2010 Pfizer-BioNTech COVID-19 Vacc 30 MCG/0.3ML Intramuscular Suspension --- Series1: 25-Mar-2020; Series2: 21-Apr-2020 Shingrix 50 MCG Intramuscular Suspension Reconstituted --- Series1: 08-Feb-2019; Series2: 22-May-2019 Tdap --- Series1: 26-Apr-2015 Patient Care Team Care Team MemberRoleSpecialtyOffice Number (more content not included)... Normal [employer] Auto Diffon 07-25-2018 Basophils #/vol (Bld) 0.1 E3/mcL Normal 0.0-0.2 [facility] Comment on above: Order Comment: Order Added by Discern Expert. Performed By: #### 2 [id number] #### GRACE Rem[facility] [place] [address] Basophils/100 WBC (Bld) 1.0 % Normal 0.0-2.0 [facility] Comment on above: Order Comment: Order Added by Discern Expert. Performed By: #### 2 [id number] #### GRACE RemHemo [facility] [place] [address] Eos Absolute 0.2 E3/mcL Normal 0.0-0.7 [facility] Comment on above: Order Comment: Order Added by Discern Expert. Performed By: #### 2 [id number] #### GRACE Coley[facility] [address] [place] [address] Eosinophils/100 WBC (Bld) 3.7 % Normal 0.0-11.0 [facility] Comment on above: Order Comment: Order Added by Discern Expert. Performed By: #### 2 [id number] #### GRACE Coley[facility]emo [address] [place] [address] Lymphocytes #/vol (Bld) 0.9 E3/mcL Low 1.2-3.4 [facility] Comment on above: Order Comment: Order Added by Discern Expert. Performed By: #### 2 643183 #### GRACE Coley[facility]emo [address] [place] [address] Lymphocytes/100 WBC (Bld) 14.9 % Low 20.0-55.0 [facility] Comment on above: Order Comment: Order Added by Discern Expert. Performed By: #### 2 745994 #### GRACE [facility] [address] [place] [address] [place] Absolute 0.5 E3/mcL Normal 0.0-0.7 [facility] Comment on above: Order Comment: Order Added by Discern Expert. Performed By: #### 2 600718 #### GRACE Coley[facility]emo [address] [place] [address] Monocytes/100 WBC (Bld) 8.7 % Normal 0.0-10.0 [facility] Comment on above: Order Comment: Order Added by Discern Expert. Performed By: #### 2 029284 #### GRACE [facility] [address] [place] [address] Neutro Absolute 4.1 E3/mcL Normal 1.4-6.5 [facility] Comment on above: Order Comment: Order Added by Discern Expert. Performed By: #### 2 254398 #### GRACE [facility] [address] [place] [address] Neutro Auto 71.7 % Normal 37.0-75.0 [facility] Comment on above: Order Comment: Order Added by Discern Expert. Performed By: #### 2 635468 #### GRACE [facility] [address] [place] [address] CBC w/ Auto Diffon 9 Erythrocyte distribution width Ratio (RBC) 16.0 % High 11.5-14.5 [facility] Comment on above: Performed By: #### 2 824237 #### GRACE ColeyHemo [facility] [place] [phone] Hematocrit Volume Fraction (Bld) 39.4 % Low 42.0-52.0 [facility] Comment on above: Performed By: #### 2 342793 #### GRACE ColeyHemo [facility] [place] [phone] Hemoglobin mass conc (Bld) 13.3 g/dL Low 13.5-18.0 [facility] Comment on above: Performed By: #### 2 570507 #### GRACE Coley[facility]emo [address] [place], [place] [address] MCH Entitic mass (RBC) 34.1 pg High 27.0-31.0 [facility] Comment on above: Performed By: #### 2 994019 #### GRACE Coley[facility]emo [address] [place] [address] MCHC mass conc (RBC) 33.7 g/dL Normal 33.0-37.0 [facility] Comment on above: Performed By: #### 2 143306 #### GRACE Coley[facility]emo [address] [place], [place] [address] MCV Entitic volume (RBC) 101.1 fL High 78.0-100.0 [facility] Comment on above: Performed By: #### 2 415604 #### GRACE [facility]emo [facility] [place] [phone] Platelet mean volume Entitic volume (Bld) 8.7 fL Normal 7.4-11.0 [facility] Comment on above: Performed By: #### 2 657533 #### GRACE ColeyHemo [address] [place] [address] Platelets #/vol (Bld) 338 E3/mcL Normal 130-400 [facility] Comment on above: Performed By: #### 2 655841 #### GRACE ColeyHemo [address] [place] [phone] RBC #/vol (Bld) 3.90 E6/mcL Normal 3.90-6.10 [facility] Comment on above: Performed By: #### 2 094874 #### GRACE ColeyHemo [address] [place] [address] WBC #/vol (Bld) 5.7 E3/mcL Normal 3.6-11.0 [facility] Comment on above: Performed By: #### 2 764861 #### GRACE [facility]aho [address] [place] [address] CMPon 07-25-2018 Albumin mass conc 4.1 g/dL Normal 3.4-5.0 [facility] Comment on above: Performed By: #### 2 348089 #### GRACENeda ColeyHemo [address] [place] [address] Albumin/Globulin mass ratio 1.3 {ratio} Normal 1.1-1.9 [facility] Comment on above: Performed By: #### 2 206215 #### GRACE ColeyHemo [address] [place] [address] Alk Phos 79 Int._Unit/L Normal 33-136 [facility] Comment on above: Performed By: #### 2 361090 #### GRACE ColeyHemo [address] [place] [address] ALT enzyme act/vol 19 Int._Unit/L Normal 10-52 [facility] Comment on above: Performed By: #### 2 881234 #### GRACE ColeyHemo [address] [place] [address] Anion gap molar conc 9 mmol/L Low 10-20 [facility] Comment on above: Performed By: #### 2 325685 #### GRACE ColeyHemo [address] [place] [address] AST enzyme act/vol 19 Int._Unit/L Normal 9-39 [facility] Comment on above: Performed By: #### 2 898800 #### GRACE ColeyHemo [address] [place] [address] Bili Total 0.57 mg/dL Normal 0.00-1.20 [facility] Comment on above: Performed By: #### 2 583740 #### GRACENeda ColeyHemo [address] [place] [address] Calcium mass conc 9.3 mg/dL Normal 8.6-10.3 [facility] Comment on above: Performed By: #### 2 042197 #### GRACE ColeyHemo [address] [place] [address] Chloride molar conc 104 mmol/L Normal 98-107 [facility] Comment on above: Performed By: #### 2 055254 #### GRACE ColeyHemo [address] [place] [address] CO2 molar conc 29.0 mmol/L Normal 21.0-32.0 [facility] Comment on above: Performed By: #### 2 442875 #### GRACE ColeyHemo [address] [place] [address] Creatinine mass conc 1.0 mg/dL Normal 0.5-1.3 [facility] Comment on above: Performed By: #### 2 144443 #### GRACE ColeyHemo [address] [place] [address] Globulin mass conc (S) 3.0 g/dL Normal 2.0-4.0 [facility] Comment on above: Performed By: #### 2 463401 #### GRACE ColeyHemo [address] [place] [address] Glucose mass conc 95 mg/dL Normal 70-99 [facility] Comment on above: Performed By: #### 2 010374 #### GRACE ColeyHemo [address] [place] [address] Potassium molar conc 3.8 mmol/L Normal 3.5-5.3 [facility] Comment on above: Performed By: #### 2 349454 #### GRACE RemHemo [address] [place] [address] Protein mass conc 7.3 g/dL Normal 6.4-8.2 [facility] Comment on above: Performed By: #### 2 804822 #### GRACE ColeyHemo [address] [place] [address] Sodium molar conc 138 mmol/L Normal 136-145 [facility] Comment on above: Performed By: #### 2 961028 #### GRACE RemHemo [address] [place] [address] Urea nitrogen mass conc 19 mg/dL Normal 6-23 [facility] Comment on above: Performed By: #### 2 651660 #### GRACE ColeyHemo [address] [place] [address] Urea nitrogen/Creatinin e mass ratio 19.0 ratio Normal 5.4-30.0 [facility] Comment on above: Performed By: #### 2 996931 #### GRACE ColeyHemo [address] [place] [address] Lipid Profileon 07-25-2018 Cholesterol in HDL mass conc 53 mg/dL Normal 40-60 [facility] Comment on above: Performed By: #### 2 888491 #### GRACE ColeyHemo [address] [place] [address] Cholesterol in LDL mass conc 86 mg/dL Normal 0-130 [facility] Comment on above: Result Comment: <100 OPTIMAL 100-129 NEAR / ABOVE OPTIMAL 130-159 BORDERLINE HIGH 160-189 HIGH >190 VERY HIGH CALC LDL NOT VALID WHEN TRIGLYCERIDE IS >400 MG/DL Performed By: #### 2 172600 #### GRACE ColeyHemo [address] [place] [address] Cholesterol in VLDL mass conc 13 mg/dL Normal 0-40 [facility] Comment on above: Performed By: #### 2 259273 #### GRACE ColeyHemo [address] [place] [address] Cholesterol mass conc 152 mg/dL Normal 0-199 [facility] Comment on above: Result Comment: TOTA L CHOLEESTEROL: <200 NORMAL 200 - 239 BORDERLINE HIGH >240 HIGH Performed By: #### 2 220695 #### GRACE RemHemo [address] [place] [address] Triglyceride mass conc 65 mg/dL Normal 0-149 [facility] Comment on above: Result Comment: AGE DESIRABLE BORDERLINE HIGH 91 D - 9 Y 0 - 74 75 - 99 > 100 10 - 19 Y 0 - 89 90 - 129 > 130 20 -24 Y 0 - 114 115 - 149 > 150 > 25 0 - 149 150 - 199 200 - 499 Performed By: #### 2 006289 #### GRACE RemHemo [address] [place] [phone] eGFRon 07-25-2018 GFR/1.73 sq M predicted among non-blacks MDRD vol rate/area (S/P/Bld) mL/min/{1.73_m2} [facility] Comment on above: Order Comment: Order added by Discern Expert. Performed By: #### 2 718676 #### GRACE RemHemo [address] [place] [phone] Immunoglobs. A/E/G/Mon 05-27 IgA Quant [address] [facility] Comment on above: Performed By: #### 1 [id number] #### GRACE [facility] [address] [place] [address] IgG Quant [address] [facility] Comment on above: Performed By: #### 1 [id number] #### GRACE [facility] [address] [place] [address] IgM Quant [address] [facility] Comment on above: Performed By: #### 1 [id number] #### GRACE [facility] [address] [place] [address] Immunoglobs. A/E/G/Mon 05-23 IgE Quant 12 International_Unit/mL Normal 6-495 [facility] Comment on above: Result Comment: Pl ease note reference interval change Performed At: [address] [id number] Jameel Gilbert MD Ph:[phone] Performed By: #### 1 [id number] #### GRACE [facility] [address] [place] [phone] C Bloodon 05-21-2018 C Blood Final Report: No don wth at [address] [facility] Comment on above: Performed By: #### 1 [id number] #### GRACE [facility] [address] [place] [address] Lab Miscellaneouson 05-22-19 19 Status See Ref Lab Report Normal [facility] Comment on above: Performed By: #### 1 [id number] #### GRACE [facility] [address] [place] [phone] Lab Miscellaneouson 05-21-19 19 Status See Ref Lab Report Normal [facility] Comment on above: Order Comment: Order added by Discern Expert. Performed By: #### 1 [id number] #### GRACE [facility] [address] [place] [address] Immunofixation Serumon 05-19 ESTEFANY Interp Comment Normal [facility] Comment on above: Result Comment: No m onoclonality detected. Performed At: [facility] [address] [id number] Hasmukh Pruitt PhD Ph:[phone] Performed By: #### 1 [id number] #### GRACE [facility] [address] [place] [address] SPEon 05-19-2018 Albumin mass conc 3.7 g/dL Normal 2.9-4.4 [facility] Comment on above: Performed By: #### 1 [id number] #### GRACE [facility] [address] [place] [address] Alpha 1 Glob 0.5 gm/dL High 0.0-0.4 [facility] Comment on above: Performed By: #### 1 [id number] #### GRACE [facility] [address] [place] [address] Alpha 2 Glob 1.1 gm/dL High 0.4-1.0 [facility] Comment on above: Performed By: #### 1 [id number] #### GRACE [facility] [address] [place] [address] Beta Glob 1.0 gm/dL Normal 0.7-1.3 [facility] Comment on above: Performed By: #### 1 9445065 #### GRACE [facility] [address] [place] [address] Gamma Glob 0.9 gm/dL Normal 0.4-1.8 [facility] Comment on above: Performed By: #### 1 2345058 #### GRACE [facility] [address] [place] [address] Globulin mass conc (S) 3.4 g/dL Normal 2.2-3.9 [facility] Comment on above: Performed By: #### 1 [id number] #### GRACE [facility] [address] [place] [address] M-Samir Not Observed Normal Not Observed [facility] Comment on above: Performed By: #### 1 [id number] #### GRACE [facility] [address] [place] [address] Protein mass conc Comment Normal [facility] Comment on above: Result Comment: The SPE pattern demonstrates elevation of regions containing acute phase proteins suggesting an acute inflammatory response. Some conditions in which this pattern have been observed include: bacterial, viral or parasitic infection; mechanical, physical or chemical trauma; and cardiac failure. The gamma globulin region is unremarkable and evidence of monoclonal protein is not apparent. Performed At: [facility] [address] [place], [place] [id number] Hasmukh Pruitt PhD Ph:[phone] Performed By: #### 1 [id number] #### GRACE [facility] [place] [address] Hep A,B, C Panelon 9 Hep A IgM Negative Normal Negative [facility] Comment on above: Performed By: #### 1 [id number] #### GRACE [facility] [address] [place] [address] Hep B Core IgM Negative Normal Negative [facility] Comment on above: Performed By: #### 1 [id number] #### GRACE [facility] [address] [place] [address] Hep Bs Ag Negative Normal Negative [facility] Comment on above: Performed By: #### 1 [id number] #### GARCE [facility] [address] [place] [address] Hep C Ab <0.1 Normal 0.0-0.9 [facility] Comment on above: Result Comment: Nega tive: < 0.8 Indeterminate: 0.8 - 0.9 Positive: > 0.9 The CDC recommends that a positive HCV antibody result be followed up with a HCV Nucleic Acid Amplification test (004984). Performed At: [facility] [address] [place], [place] [id number] Hasmukh Pruitt PhD Ph:[phone] Performed By: #### 1 [id number] #### GRACE [employer] [facility] [address] [place] [address] Immunofixation Serumon 05-17 IgA Quant 192 mg/dL Normal 61-437 [facility] Comment on above: Performed By: #### 1 7991316 #### GRACE [facility] [address] [place] [phone] IgG Quant 945 mg/dL Normal 700-1600 [facility] Comment on above: Performed By: #### 1 7273660 #### GRACE [facility] [place] [address] IgM Quant 81 mg/dL Normal 15-143 [facility] Comment on above: Result Comment: Perf ormed At: [address] [id number] Hasmukh Pruitt PhD Ph:[phone] Performed By: #### 1 [id number] #### GRACE [facility] [place] [phone] RF Quanton 05-17-2018 RA Latex Turbid 17.2 International_Unit/mL High 0.0- 13.9 [facility] Comment on above: Result Comment: Perf ormed At: [address] [id number] Hasmukh Pruitt PhD Ph:[phone] Performed By: #### 1 [id number] #### GRACE [facility] [address] [place] [address] SPEon 05-17-2018 Protein mass conc Comment Normal [facility] Comment on above: Result Comment: Protein electrophoresis scan will follow via computer, mail, or chute greaser delivery. Performed At: [address] [id number] Hasmukh Pruitt PhD Ph:[phone] Performed By: #### 1 [id number] #### GRACE [facility] [address] [place], [place] [address] Protein mass conc 7.1 g/dL Normal 6.0-8.5 [facility] Comment on above: Performed By: #### 1 [id number] #### GRACE [facility] [address] [place], [place] [address] Auto Diffon 05-16-2018 Basophils #/vol (Bld) 0.1 E3/mcL Normal 0.0-0.2 [facility] Comment on above: Order Comment: Order Added by Discern Expert. Performed By: #### 2 592283 #### GRACE [facility] [address] [place] [address] Basophils/100 WBC (Bld) 0.5 % Normal 0.0-2.0 [facility] Comment on above: Order Comment: Order Added by Discern Expert. Performed By: #### 2 660569 #### GRACE [facility] [address] [place] [address] Eos Absolute 0.0 E3/mcL Normal 0.0-0.7 [facility] Comment on above: Order Comment: Order Added by Discern Expert. Performed By: #### 2 788975 #### GRACE [facility] [address] [place] [address] Eosinophils/100 WBC (Bld) 0.1 % Normal 0.0-11.0 [facility] Comment on above: Order Comment: Order Added by Discern Expert. Performed By: #### 2 137693 #### GRACE [facility] [address] [place] [address] Lymphocytes #/vol (Bld) 0.7 E3/mcL Low 1.2-3.4 [facility] Comment on above: Order Comment: Order Added by Discern Expert. Performed By: #### 2 064715 #### GRACE [facility] [address] [place] [address] Lymphocytes/100 WBC (Bld) 5.9 % Low 20.0-55.0 [facility] Comment on above: Order Comment: Order Added by Discern Expert. Performed By: #### 2 557405 #### GRACE [facility] [address] [place] [address] [place] Absolute 1.2 E3/mcL High 0.0-0.7 [facility] Comment on above: Order Comment: Order Added by Discern Expert. Performed By: #### 2 866437 #### GRACE [facility] [address] [place] [address] Monocytes/100 WBC (Bld) 10.5 % High 0.0-10.0 [facility] Comment on above: Order Comment: Order Added by Discern Expert. Performed By: #### 2 063981 #### GRACE [facility] [address] [place] [address] Neutro Absolute 9.8 E3/mcL High 1.4-6.5 [facility] Comment on above: Order Comment: Order Added by Discern Expert. Performed By: #### 2 980115 #### GRACE [facility] [place] [address] Neutro Auto 83.0 % High 37.0-75.0 [facility] Comment on above: Order Comment: Order Added by Discern Expert. Performed By: #### 2 651452 #### GRACE Greenwood [facility] [place] [address] CBC w/ Auto Diffon Erythrocyte distribution width Ratio (RBC) 14.4 % Normal 11.5-14.5 [facility] Comment on above: Performed By: #### 2 105251 #### GRACE Greenwood [facility] [place] [phone] Hematocrit Volume Fraction (Bld) 41.2 % Low 42.0-52.0 [facility] Comment on above: Performed By: #### 2 915764 #### GRACE [employer] [address] [place], [place] [address] Hemoglobin mass conc (Bld) 14.0 g/dL Normal 13.5-18.0 [facility] Comment on above: Performed By: #### 2 971563 #### GRACE [facility]wood [address] [place], [place] [address] MCH Entitic mass (RBC) 33.9 pg High 27.0-31.0 [facility] Comment on above: Performed By: #### 2 840956 #### GRACE Greenwood [address] [place], [place] [address] MCHC mass conc (RBC) 34.0 g/dL Normal 33.0-37.0 [facility] Comment on above: Performed By: #### 2 982763 #### GRACE [employer] [facility] [place] [address] MCV Entitic volume (RBC) 99.7 fL Normal 78.0-100.0 [facility] Comment on above: Performed By: #### 2 585673 #### GRACE [employer] [facility] [place] [address] Platelet mean volume Entitic volume (Bld) 7.6 fL Normal 7.4-11.0 [facility] Comment on above: Performed By: #### 2 [id number] #### GRACE [employer] [address] [place] [address] Platelets #/vol (Bld) 207 E3/mcL Normal 130-400 [facility] Comment on above: Performed By: #### 2 [id number] #### GRACE [employer] [address] [place] [address] RBC #/vol (Bld) 4.13 E6/mcL Normal 3.90-6.10 [facility] Comment on above: Performed By: #### 2 208621 #### GRACE [employer] [address] [place] [address] WBC #/vol (Bld) 11.8 E3/mcL High 3.6-11.0 [facility] Comment on above: Performed By: #### 2 799193 #### GRACE [employer] [address] [place] [address] CKon 05-16-2018 Total CK 52 Int._Unit/L Normal <=325 [facility] Comment on above: Performed By: #### 2 [id number] #### GRACE [employer] [address] [place] [address] CMPon 05-16-2018 Albumin mass conc 4.2 g/dL Normal 3.4-5.0 [facility] Comment on above: Performed By: #### 2 303893 #### GRACE [employer] [address] [place] [address] Albumin/Globulin mass ratio 1.3 {ratio} Normal 1.1-1.9 [facility] Comment on above: Performed By: #### 2 021675 #### [facility]ACE [employer] [address] [place] [address] Alk Phos 80 Int._Unit/L Normal 33-136 [facility] Comment on above: Performed By: #### 2 832159 #### GRACE [employer] [address] [place] [address] ALT enzyme act/vol 13 Int._Unit/L Normal 10-52 [facility] Comment on above: Performed By: #### 2 916832 #### GRACE [employer] [address] [place] [address] Anion gap molar conc 13 mmol/L Normal 10-20 [facility] Comment on above: Performed By: #### 2 845437 #### [facility] [address] [place] [address] AST enzyme act/vol 15 Int._Unit/L Normal 9-39 [facility] Comment on above: Performed By: #### 2 020649 #### [facility] [address] [place] [address] Bili Total 0.64 mg/dL Normal 0.00-1.20 [facility] Comment on above: Performed By: #### 2 787930 #### GRACE [employer] [address] [place] [address] Calcium mass conc 9.2 mg/dL Normal 8.6-10.3 [facility] Comment on above: Performed By: #### 2 532374 #### GRACE [employer] [facility] [place] [address] Chloride molar conc 98 mmol/L Normal 98-107 [facility] Comment on above: Performed By: #### 2 735423 #### GRACE [employer] [address] [place] [address] CO2 molar conc 24.0 mmol/L Normal 21.0-32.0 [facility] Comment on above: Performed By: #### 2 004597 #### GRACE [employer] [address] [place] [address] Creatinine mass conc 1.2 mg/dL Normal 0.5-1.3 [facility] Comment on above: Performed By: #### 2 790831 #### GRACE [employer] [address] [place] [address] Globulin mass conc (S) 3.0 g/dL Normal 2.0-4.0 [facility] Comment on above: Performed By: #### 2 014975 #### GRACENeda [employer] [address] [place] [address] Glucose mass conc 125 mg/dL High 70-99 [facility] Comment on above: Performed By: #### 2 659844 #### GRACE [employer] [address] [place] [address] Potassium molar conc 3.6 mmol/L Normal 3.5-5.3 [facility] Comment on above: Performed By: #### 2 352477 #### GRACE Greenwood [address] [place] [address] Protein mass conc 7.4 g/dL Normal 6.4-8.2 [facility] Comment on above: Performed By: #### 2 423845 #### GRACE Greenwood [address] [place] [address] Sodium molar conc 131 mmol/L Low 136-145 [facility] Comment on above: Performed By: #### 2 977565 #### GRACE Greenwood [address] [place] [address] Urea nitrogen mass conc 20 mg/dL Normal 6-23 [facility] Comment on above: Performed By: #### 2 201345 #### GRACE Greenwood [facility] [place] [phone] Urea nitrogen/Creatinin e mass ratio 16.7 ratio Normal 5.4-30.0 [facility] Comment on above: Performed By: #### 2 705882 #### GRACE Greenwood [facility] [place] [phone] CRPon 05-16-2018 CRP mass conc 17.17 mg/dL High 0.00-1.00 [facility] Comment on above: Performed By: #### 1 [id number] #### GRACE Greenwood [address] [place] [phone] Lab Miscellaneouson 05-17-19 19 Test Name mat Normal [facility] Comment on above: Performed By: #### 1 [id number] #### GRACE Greenwood [address] [place] [phone] Test Name anti-ccp Normal [facility] Comment on above: Order Comment: Order added by Discern Expert. Performed By: #### 1 [id number] #### RGACE Greenwood [address] [place] [address] SPEon 05-16-2018 Albumin/Globulin mass ratio 1 {ratio} Normal 1-2 [facility] Comment on above: Performed By: #### 1 [id number] #### GRACE [employer] [address] [place] [phone] Sed Rate Automatedon 019 Sed Rate Automated 62 mm/hr Normal [facility] Comment on above: Result Comment: AGE- SPECIFIC REFERENCE RANGES FOR SEDIMENTATION RATE AUTOMATED REFERENCE RANGE - MM/HR AGE MEN WOMEN 0-2 0-2 - PUBERTY 3-13 3-13 PUBERTY - 50 YRS 0-15 0-20 > 50 YRS 0-20 0-30 Performed By: #### 2 590222 #### GRACE [employer] [facility] [place] [address] Vit B12on 05-16-2018 Cobalamin (Vitamin B12) mass conc 408 pg/mL Normal 180-914 [facility] Comment on above: Performed By: #### 1 [id number] #### GRACE [employer] [address] [place] [address] eGFRon 05-16-2018 GFR/1.73 sq M predicted among non-blacks MDRD vol rate/area (S/P/Bld) mL/min/{1.73_m2} Normal [facility] Comment on above: Order Comment: Order added by Discern Expert. Performed By: #### 2 120102 #### GRACE [employer] [address] [place] [address] C Urineon 04-26-2018 C Urine Final Report: Rare g rowth of Normal skin calderon isolated Normal [facility] Comment on above: Performed By: #### 2 [id number] #### GRACE [employer] [address] [place] [address] Auto Diffon 04-24-2018 Basophils #/vol (Bld) 0.1 E3/mcL Normal 0.0-0.2 [facility] Comment on above: Order Comment: Order Added by Discern Expert. Performed By: #### 2 540603 #### GRACE RemH[employer] [address] [place] [address] Basophils/100 WBC (Bld) 2.0 % Normal 0.0-2.0 [facility] Comment on above: Order Comment: Order Added by Discern Expert. Performed By: #### 2 308041 #### GRACE RemH[employer] [address] [place] [address] Eos Absolute 0.8 E3/mcL High 0.0-0.7 [facility] Comment on above: Order Comment: Order Added by Discern Expert. Performed By: #### 2 775392 #### GRACE RemH[employer] [address] [place] [address] Eosinophils/100 WBC (Bld) 14.1 % High 0.0-11.0 [facility] Comment on above: Order Comment: Order Added by Discern Expert. Performed By: #### 2 882676 #### GRACE Rem[employer] [address] [place] [address] Lymphocytes #/vol (Bld) 0.9 E3/mcL Low 1.2-3.4 [facility] Comment on above: Order Comment: Order Added by Discern Expert. Performed By: #### 2 914735 #### GRACE [employer] [address] [place] [address] Lymphocytes/100 WBC (Bld) 15.3 % Low 20.0-55.0 [facility] Comment on above: Order Comment: Order Added by Discern Expert. Performed By: #### 2 158589 #### GRACE [employer] [address] [place] [address] [place] Absolute 0.6 E3/mcL Normal 0.0-0.7 [facility] Comment on above: Order Comment: Order Added by Discern Expert. Performed By: #### 2 166672 #### GRACE [employer] [address] [place] [address] Monocytes/100 WBC (Bld) 11.0 % High 0.0-10.0 [facility] Comment on above: Order Comment: Order Added by Discern Expert. Performed By: #### 2 621035 #### GRACE Rem[employer] [address] [place] [address] Neutro Absolute 3.4 E3/mcL Normal 1.4-6.5 [facility] Comment on above: Order Comment: Order Added by Discern Expert. Performed By: #### 2 936392 #### GRACE [employer] [address] [place] [address] Neutro Auto 57.6 % Normal 37.0-75.0 [facility] Comment on above: Order Comment: Order Added by Discern Expert. Performed By: #### 2 996862 #### GRACE [employer] [address] [place] [address] CBC w/ Auto Diffon Erythrocyte distribution width Ratio (RBC) 14.2 % Normal 11.5-14.5 [facility] Comment on above: Performed By: #### 2 396939 #### GRACE [employer] [address] [place] [phone] Hematocrit Volume Fraction (Bld) 41.8 % Low 42.0-52.0 [facility] Comment on above: Performed By: #### 2 749564 #### GRACE Rem[employer] [address] [place] [address] Hemoglobin mass conc (Bld) 13.9 g/dL Normal 13.5-18.0 [facility] Comment on above: Performed By: #### 2 102231 #### GRACE [employer] [address] [place] [address] MCH Entitic mass (RBC) 34.1 pg High 27.0-31.0 [facility] Comment on above: Performed By: #### 2 250167 #### GRACE [employer] [address] [place] [address] MCHC mass conc (RBC) 33.3 g/dL Normal 33.0-37.0 [facility] Comment on above: Performed By: #### 2 041858 #### GRACE [employer] [address] [place] [phone] MCV Entitic volume (RBC) 102.2 fL High 78.0-100.0 [facility] Comment on above: Performed By: #### 2 538691 #### GRACE [employer] [address] [place] [phone] Platelet mean volume Entitic volume (Bld) 9.0 fL Normal 7.4-11.0 [facility] Comment on above: Performed By: #### 2 131886 #### GRACE [employer] [address] [place] [address] Platelets #/vol (Bld) 243 E3/mcL Normal 130-400 [facility] Comment on above: Performed By: #### 2 738609 #### GRACE [employer] [address] [place] [address] RBC #/vol (Bld) 4.09 E6/mcL Normal 3.90-6.10 [facility] Comment on above: Performed By: #### 2 992493 #### GRACE [employer] [address] [place] [address] WBC #/vol (Bld) 5.8 E3/mcL Normal 3.6-11.0 [facility] Comment on above: Performed By: #### 2 780924 #### GRACE [employer] [address] [place] [phone] CMPon 04-24-2018 Albumin mass conc 4.2 g/dL Normal 3.4-5.0 [facility] Comment on above: Performed By: #### 2 066883 #### GRACE [employer] [address] [place] [address] Albumin/Globulin mass ratio 1.2 {ratio} Normal 1.1-1.9 [facility] Comment on above: Performed By: #### 2 134400 #### GRACE [employer] [address] [place] [address] Alk Phos 76 Int._Unit/L Normal 33-136 [facility] Comment on above: Performed By: #### 2 878624 #### GRACE [employer] [address] [place] [address] ALT enzyme act/vol 31 Int._Unit/L Normal 10-52 [facility] Comment on above: Performed By: #### 2 293569 #### GRACE [employer] [address] [place] [address] Anion gap molar conc 11 mmol/L Normal 10-20 [facility] Comment on above: Performed By: #### 2 241974 #### GRACE [employer] [address] [place] [address] AST enzyme act/vol 31 Int._Unit/L Normal 9-39 [facility] Comment on above: Performed By: #### 2 353160 #### GRACE [employer] [address] [place] [address] Bili Total 0.51 mg/dL Normal 0.00-1.20 [facility] Comment on above: Performed By: #### 2 537696 #### GRACE [employer] [address] [place] [address] Calcium mass conc 9.5 mg/dL Normal 8.6-10.3 [facility] Comment on above: Performed By: #### 2 821868 #### GRACE [employer] [address] [place] [address] Chloride molar conc 102 mmol/L Normal 98-107 [facility] Comment on above: Performed By: #### 2 022725 #### GRACE [employer] [address] [place] [address] CO2 molar conc 28.0 mmol/L Normal 21.0-32.0 [facility] Comment on above: Performed By: #### 2 964285 #### GRACE [employer] [address] [place] [address] Creatinine mass conc 0.9 mg/dL Normal 0.5-1.3 [facility] Comment on above: Performed By: #### 2 954800 #### GRACE [employer] [address] [place] [address] Globulin mass conc (S) 4.0 g/dL Normal 2.0-4.0 [facility] Comment on above: Performed By: #### 2 081656 #### GRACE [employer] [address] [place] [address] Glucose mass conc 97 mg/dL Normal 70-99 [facility] Comment on above: Performed By: #### 2 587511 #### GRACE [employer] [address] [place] [address] Potassium molar conc 3.9 mmol/L Normal 3.5-5.3 [facility] Comment on above: Performed By: #### 2 396476 #### GRACE [employer] [address] [place] [address] Protein mass conc 7.7 g/dL Normal 6.4-8.2 [facility] Comment on above: Performed By: #### 2 304416 #### GRACE [employer] [address] [place] [address] Sodium molar conc 137 mmol/L Normal 136-145 [facility] Comment on above: Performed By: #### 2 779525 #### GRACE [employer]wood [address] [place] [address] Urea nitrogen mass conc 16 mg/dL Normal 6-23 [facility] Comment on above: Performed By: #### 2 857753 #### GRACE [employer] [address] [place] [address] Urea nitrogen/Creatinin e mass ratio 17.8 ratio Normal 5.4-30.0 [facility] Comment on above: Performed By: #### 2 554326 #### GRACE [employer]wood [address] [place] [address] Sed Rate Automatedon 019 Sed Rate Automated 39 mm/hr Normal [facility] Comment on above: Result Comment: AGE- SPECIFIC REFERENCE RANGES FOR SEDIMENTATION RATE AUTOMATED REFERENCE RANGE - MM/HR AGE MEN WOMEN 0-2 0-2 - PUBERTY 3-13 3-13 PUBERTY - 50 YRS 0-15 0-20 > 50 YRS 0-20 0-30 Performed By: #### 2 202654 #### GRACE [place] [address] [place] [address] eGFRon 04-24-2018 GFR/1.73 sq M predicted among non-blacks MDRD vol rate/area (S/P/Bld) mL/min/{1.73_m2} Normal [facility] Comment on above: Order Comment: Order added by Discern Expert. Performed By: #### 2 247894 #### GRACE [employer]wood [address] [place] [address] XR Chest 2 Viewson 8 XR Chest 2 Views Exam Date/Time: 01/30/2018 13:17 EST Reason for Exam: Cough Report STUDY: XR Chest 2 Views; 01/30/2018 1:17 pm INDICATION: Cough. COMPARISON: None. ACCESSION NUMBER(S): [id number] ORDERING CLINICIAN: Kyle Anthony FINDINGS: CARDIOMEDIASTINAL SILHOUETTE: Cardiomediastinal silhouette is normal in size and configuration. LUNGS: Lungs are clear. ABDOMEN: No remarkable upper abdominal findings. BONES: No acute osseous changes. IMPRESSION: 1. No evidence of acute cardiopulmonary process. FINAL REPORT Dictated: 01/31/2018 3:47 pm Kodak Cunningham MD Signed (Electronic Signature): 01/31/2018 3:47 pm Signed by: Kodak Cunningham MD Technologist: PADDY Normal [facility] CMPon 10-29-2017 Albumin mass conc 3.5 g/dL Normal 3.2-5.0 [facility] Comment on above: Performed By: #### 2 311954 #### [facility] [address] [place] [address] Albumin/Globulin mass ratio 0.9 {ratio} Low 1.1-1.9 [facility] Comment on above: Performed By: #### 2 848465 #### GRACE [employer] [address] [place] [address] Alk Phos 97 Int._Unit/L Normal 42-121 [facility] Comment on above: Performed By: #### 2 442562 #### GRACE [employer] [address] [place] [address] ALT enzyme act/vol 47 Int._Unit/L High 10-40 [facility] Comment on above: Performed By: #### 2 655459 #### GRACE [employer] [address] [place] [address] AST enzyme act/vol 18 Int._Unit/L Normal 10-42 [facility] Comment on above: Performed By: #### 2 716063 #### GRACE [employer] [address] [place] [address] Bili Total 0.7 mg/dL Normal 0.2-1.0 [facility] Comment on above: Performed By: #### 2 178912 #### GRACE [employer] [address] [place] [address] Calcium mass conc 9.1 mg/dL Normal 8.4-10.2 [facility] Comment on above: Performed By: #### 2 543038 #### GRACENeda [employer] [address] [place] [address] Chloride molar conc 101 mmol/L Normal 98-107 [facility] Comment on above: Performed By: #### 2 646457 #### [facility] [address] [place] [address] CO2 molar conc 27.5 mmol/L Normal 24.0-30.0 [facility] Comment on above: Performed By: #### 2 045204 #### GRACE [employer] [address] [place] [address] Creatinine mass conc 0.9 mg/dL Normal 0.6-1.3 [facility] Comment on above: Performed By: #### 2 697132 #### GRACE [employer] [address] [place] [address] Globulin mass conc (S) 3.8 g/dL Normal 2.0-4.0 [facility] Comment on above: Performed By: #### 2 912908 #### GRACE [employer] [address] [place] [address] Glucose mass conc 107 mg/dL High 70-99 [facility] Comment on above: Performed By: #### 2 612870 #### GRACE [employer] [address] [place] [address] Potassium molar conc 4.1 mmol/L Normal 3.5-5.1 [facility] Comment on above: Performed By: #### 2 186159 #### GRACE [employer] [address] [place] [address] Protein mass conc 7.3 g/dL Normal 6.4-8.3 [facility] Comment on above: Performed By: #### 2 408953 #### GRACE [employer] [address] [place] [address] Sodium molar conc 139 mmol/L Normal 136-145 [facility] Comment on above: Performed By: #### 2 484713 #### GRACE [employer] [address] [place] [address] Urea nitrogen mass conc 20 mg/dL High 7-18 [facility] Comment on above: Performed By: #### 2 813702 #### GRACE [employer] [address] [place] [address] Urea nitrogen/Creatinin e mass ratio 22.2 ratio Normal 5.4-30.0 [facility] Comment on above: Performed By: #### 2 333989 #### GRACE [employer] [address] [place] [address] eGFRon 10-29-2017 GFR/1.73 sq M predicted among non-blacks MDRD vol rate/area (S/P/Bld) mL/min/{1.73_m2} Normal [facility] Comment on above: Order Comment: Order added by Discern Expert. Performed By: #### 1 [id number] #### GRACE [employer] [address] [place] [address] Auto Diffon 10-21-2017 Basophils #/vol (Bld) 0.0 E3/mcL Normal 0.0-0.2 [facility] Comment on above: Order Comment: Order Added by Discern Expert. Performed By: #### 2 207167 #### GRACE [employer] [address] [place] [address] Basophils/100 WBC (Bld) 0.6 % Normal 0.0-2.0 [facility] Comment on above: Order Comment: Order Added by Discern Expert. Performed By: #### 2 698306 #### GRACE [employer] [address] [place] [address] Eos Absolute 0.2 E3/mcL Normal 0.0-0.7 [facility] Comment on above: Order Comment: Order Added by Discern Expert. Performed By: #### 2 298329 #### GRACE [employer] [address] [place] [address] Eosinophils/100 WBC (Bld) 2.3 % Normal 0.0-11.0 [facility] Comment on above: Order Comment: Order Added by Discern Expert. Performed By: #### 2 332909 #### GRACE [employer] [address] [place] [address] Lymphocytes #/vol (Bld) 1.2 E3/mcL Normal 1.2-3.4 [facility] Comment on above: Order Comment: Order Added by Discern Expert. Performed By: #### 2 943907 #### GRACE [employer] [address] [place] [address] Lymphocytes/100 WBC (Bld) 15.9 % Low 20.0-55.0 [facility] Comment on above: Order Comment: Order Added by Discern Expert. Performed By: #### 2 689534 #### GRACE Rem[employer] [address] [place] [address] [place] Absolute 0.8 E3/mcL High 0.0-0.7 [facility] Comment on above: Order Comment: Order Added by Discern Expert. Performed By: #### 2 348559 #### GRACE ColeyHemo [address] [place] [phone] Monocytes/100 WBC (Bld) 11.1 % High 0.0-10.0 [facility] Comment on above: Order Comment: Order Added by Discern Expert. Performed By: #### 2 197751 #### GRACE ColeyHemo [address] [place] [address] Neutro Absolute 5.2 E3/mcL Normal 1.4-6.5 [facility] Comment on above: Order Comment: Order Added by Discern Expert. Performed By: #### 2 517981 #### GRACE [employer] [address] [place] [address] Neutro Auto 70.1 % Normal 37.0-75.0 [facility] Comment on above: Order Comment: Order Added by Discern Expert. Performed By: #### 2 997408 #### GRACE ColeyHemo [facility] [place] [phone] CBC w/ Auto Diffon 8 Erythrocyte distribution width Ratio (RBC) 16.1 % High 11.5-14.5 [facility] Comment on above: Performed By: #### 2 212230 #### GRACE ColeyHemo [address] [place], [place] [address] Hematocrit Volume Fraction (Bld) 38.2 % Low 42.0-52.0 [facility] Comment on above: Performed By: #### 2 546277 #### GRACE ColeyHemo [facility] [place] [phone] Hemoglobin mass conc (Bld) 12.7 g/dL Low 13.5-18.0 [facility] Comment on above: Performed By: #### 2 057897 #### GRACE [employer]yHemo [address] [place] [phone] MCH Entitic mass (RBC) 34.1 pg High 27.0-31.0 [facility] Comment on above: Performed By: #### 2 293576 #### GRACE ViancaHemo [address] [place] [phone] MCHC mass conc (RBC) 33.3 g/dL Normal 33.0-37.0 [facility] Comment on above: Performed By: #### 2 163194 #### GRACE Mensaho [address] [place] [phone] MCV Entitic volume (RBC) 102.3 fL High 78.0-100.0 [facility] Comment on above: Performed By: #### 2 402087 #### GRACE ColeyHemo [facility] [place] [phone] Platelet mean volume Entitic volume (Bld) 9.0 fL Normal 7.4-11.0 [facility] Comment on above: Performed By: #### 2 956818 #### GRACE ColeyHemo [address] [place], [place] [address] Platelets #/vol (Bld) 345 E3/mcL Normal 130-400 [facility] Comment on above: Performed By: #### 2 687132 #### GRACE ColeyHemo [address] [place], [place] [address] RBC #/vol (Bld) 3.73 E6/mcL Low 3.90-6.10 [facility] Comment on above: Performed By: #### 2 423452 #### GRACE ColeyHemo [address] [place], [place] [address] WBC #/vol (Bld) 7.3 E3/mcL Normal 3.6-11.0 [facility] Comment on above: Performed By: #### 2 302238 #### GRACE ColeyHemo [address] [place] [phone] CMPon 10-21-2017 Albumin mass conc 3.2 g/dL Normal 3.2-5.0 [facility] Comment on above: Performed By: #### 2 693514 #### GRACE [employer] [place] [phone] Albumin/Globulin mass ratio 0.8 {ratio} Low 1.1-1.9 [facility] Comment on above: Performed By: #### 2 789252 #### GRACE [employer] [facility] [place] [phone] Alk Phos 141 Int._Unit/L High 42-121 [facility] Comment on above: Performed By: #### 2 205475 #### GRACE [employer] [address] [place] [address] ALT enzyme act/vol 230 Int._Unit/L High 10-40 [facility] Comment on above: Performed By: #### 2 741366 #### GRACE [employer] [address] [place] [address] AST enzyme act/vol 133 Int._Unit/L High 10-42 [facility] Comment on above: Performed By: #### 2 206944 #### GRACE [employer] [address] [place] [address] Bili Total 0.7 mg/dL Normal 0.2-1.0 [facility] Comment on above: Performed By: #### 2 441021 #### GRACE [employer] [address] [place] [address] Calcium mass conc 9.1 mg/dL Normal 8.4-10.2 [facility] Comment on above: Performed By: #### 2 955040 #### GRACE [employer] [address] [place] [address] Chloride molar conc 101 mmol/L Normal 98-107 [facility] Comment on above: Performed By: #### 2 381811 #### GRACE [employer] [address] [place] [address] CO2 molar conc 28.0 mmol/L Normal 24.0-30.0 [facility] Comment on above: Performed By: #### 2 799949 #### GRACE [employer] [address] [place] [address] Creatinine mass conc 0.8 mg/dL Normal 0.6-1.3 [facility] Comment on above: Performed By: #### 2 754177 #### GRACE [employer] [address] [place] [address] Globulin mass conc (S) 4.1 g/dL High 2.0-4.0 [facility] Comment on above: Performed By: #### 2 677289 #### GRACE [employer] [address] [place] [address] Glucose mass conc 83 mg/dL Normal 70-99 [facility] Comment on above: Performed By: #### 2 603765 #### GRACE [employer] [address] [place] [address] Potassium molar conc 4.2 mmol/L Normal 3.5-5.1 [facility] Comment on above: Performed By: #### 2 698061 #### GRACE [employer] [address] [place] [address] Protein mass conc 7.3 g/dL Normal 6.4-8.3 [facility] Comment on above: Performed By: #### 2 472520 #### GRACE [employer] [address] [place] [address] Sodium molar conc 140 mmol/L Normal 136-145 [facility] Comment on above: Performed By: #### 2 793780 #### GRACE [facility] [place] [address] Urea nitrogen mass conc 19 mg/dL High 7-18 [facility] Comment on above: Performed By: #### 2 435536 #### GRACE [facility] [facility] [place] [address] Urea nitrogen/Creatinin e mass ratio 23.8 ratio Normal 5.4-30.0 [facility] Comment on above: Performed By: #### 2 531327 #### GRACE Greenwood [address] [place] [address] eGFRon 10-21-2017 GFR/1.73 sq M predicted among non-blacks MDRD vol rate/area (S/P/Bld) mL/min/{1.73_m2} Normal [facility] Comment on above: Order Comment: Order added by Discern Expert. Performed By: #### 1 [id number] #### GRACE [facility] [address] [place] [address] C Urineon 10-17-2017 C Urine Final Report: >100,0 00 cfu/ml Pseudomonas aeruginosa ORGANISM: PA SUSCEPTIBILITY RESULTS Antibiotic GRANT Dilutn GRANT Interp ORGANISM: PA Ceftaz : <=1 S Cipro : <=1 S Gent : <=4 S Levo : <=2 S Manuel : <=1 S Pip/Brown : <=16 S Tobra : <=4 S Normal [facility] Comment on above: Performed By: #### [id number] #### [place] [address] Vital Signs Date Time Vital Sign Value Performing Clinician Heather jeff 07-10-2023 09:02-0400 Body height 175.3 cm Kyle Anthony MD Work Phone: [facility] 07-10-2023 09:02-0400 Body mass index (BMI) [Ratio] 22.83 kg/m2 Kyle Anthony MD Work Phone: [facility] 07-10-2023 09:02-0400 Body weight 70.13 kg Kyle Anthony MD Work Phone: [facility] 07-10-2023 09:02-0400 Diastolic blood pressure 68 mm[Hg] Kyle Anthony MD Work Phone: [facility] 07-10-2023 09:02-0400 Heart rate 59 /min Kyle Anthony MD Work Phone: [facility] 07-10-2023 09:02-0400 SaO2% (BldA) [Mass fraction] 95 % Kyle Anthony MD Work Phone: [facility] 07-10-2023 09:02-0400 Systolic blood pressure 126 mm[Hg] Kyle Anthony MD Work Phone: [facility] 03-13-2023 08:19-0500 Body height 175.3 cm Kyle Anthony MD Work Phone: [facility] 03-13-2023 08:19-0500 Body mass index (BMI) [Ratio] 22.49 kg/m2 Kyle Anthony MD Work Phone: [facility] 03-13-2023 08:19-0500 Body weight 69.08 kg Kyle Anthony MD Work Phone: [facility] 03-13-2023 08:19-0500 Diastolic blood pressure 76 mm[Hg] Kyle Anthony MD Work Phone: [facility] 03-13-2023 08:19-0500 Heart rate 62 /min Kyle Anthony MD Work Phone: [facility] 03-13-2023 08:19-0500 SaO2% (BldA) [Mass fraction] 94 % Kyle Anthony MD Work Phone: [facility] 03-13-2023 08:19-0500 Systolic blood pressure 136 mm[Hg] Kyle Anthony MD Work Phone: [facility] 06-14-2022 08:42-0400 Body mass index (BMI) [Ratio] 22.15 kg/m2 Kyle Anthony MD Work Phone: [facility] 06-14-2022 08:42-0400 Body weight 68.04 kg Kyle Anthony MD Work Phone: [facility] 06-14-2022 08:42-0400 Diastolic blood pressure 78 mm[Hg] Kyle Anthony MD Work Phone: [facility] 06-14-2022 08:42-0400 Heart rate 61 /min Kyle Anthony MD Work Phone: [facility] 06-14-2022 08:42-0400 SaO2% (BldA) [Mass fraction] 97 % Kyle Anthony MD Work Phone: [facility] 06-14-2022 08:42-0400 Systolic blood pressure 110 mm[Hg] Kyle Anthony MD Work Phone: [facility] 12-08-2021 09:07-0400 Body height 175.26 cm Kyle Anthony Work Phone: [place] [place] Phone: 12-08-2021 09:07-0400 Body mass index (BMI) [Ratio] 21.87 kg/m2 Kyle Anthony Work Phone: [facility] Work Phone: 12-08-2021 09:07-0400 Body surface area Derived from formula 1.82 m2 Kyle Huertacel Work Phone: [facility] Work Phone: 12-08-2021 09:07-0400 Body weight 67.16 kg Kyle Huertacel Work Phone: [facility] Work Phone: 12-08-2021 09:07-0400 Diastolic blood pressure 78 mm[Hg] Kyle Huertacel Work Phone: [facility] Work Phone: 12-08-2021 09:07-0400 Heart rate 56 /min Kyle Anthony Work Phone: [employer] Work Phone: 12-08-2021 09:07-0400 SaO2% (BldA) [Mass fraction] 97 % Kyle Anthony Work Phone: [employer] Work Phone: 12-08-2021 09:07-0400 Systolic blood pressure 122 mm[Hg] Kyle Huertacel Work Phone: [employer] [facility] Work Phone: 05-22-2021 08:03-0400 Body height 175.26 cm Kyle Anthony Work Phone: [facility] Work Phone: 05-22-2021 08:03-0400 Body mass index (BMI) [Ratio] 22.35 kg/m2 Kyle Huertacel Work Phone: [employer] Work Phone: 05-22-2021 08:03-0400 Body surface area Derived from formula 1.84 m2 Kyle Huertacel Work Phone: [employer] [facility] Work Phone: 05-22-2021 08:03-0400 Body weight 68.67 kg Kyle Anthony Work Phone: [facility] Work Phone: 05-22-2021 08:03-0400 Diastolic blood pressure 62 mm[Hg] Kyle Anthony Work Phone: [facility] Work Phone: 05-22-2021 08:03-0400 Heart rate 57 /min Kyle Anthony Work Phone: [facility] Work Phone: 05-22-2021 08:03-0400 SaO2% (BldA) [Mass fraction] 98 % Kyle Anthony Work Phone: [facility] Work Phone: 05-22-2021 08:03-0400 Systolic blood pressure 104 mm[Hg] Kyle Anthony Work Phone: [facility] Work Phone: 01-28-2019 10:31-0500 Pulse (Heart Rate) 68 /min Kyle Anthony [facility] Work Phone: 01-28-2019 10:28-0500 BMI (Body Mass Index) 23.48 kg/m2 Kyle Anthony [facility] Work Phone: 01-28-2019 10:28-0500 Body weight 72.12 kg Kyle Anthony [facility] Work Phone: 01-28-2019 10:28-0500 BP Diastolic 84 mm[Hg] Kyle Anthony [facility] Work Phone: 01-28-2019 10:28-0500 BP Systolic 134 mm[Hg] Kyle Anthony [facility] Work Phone: 01-28-2019 10:28-0500 BSA (Body Surface Area) 1.87 m2 Kyle Anthony [facility] Work Phone: 01-28-2019 10:28-0500 Height 175.26 cm [facility] Work Phone: 01-28-2019 10:28-0500 Pulse Oximetry 98 % [facility] Work Phone: 01-06-2019 11:52-0500 BMI (Body Mass Index) 23.04 kg/m2 Kyle [facility] Work Phone: 01-06-2019 11:52-0500 Body weight 70.76 kg [facility] Work Phone: 01-06-2019 11:52-0500 BP Diastolic 82 mm[Hg] Kyle Huertamatthew [facility] Work Phone: 01-06-2019 11:52-0500 BP Systolic 158 mm[Hg] Kyle [facility]amatthew [facility] Work Phone: 01-06-2019 11:52-0500 BSA (Body Surface Area) 1.86 m2 Kyle [facility] Work Phone: 01-06-2019 11:52-0500 Height 175.26 cm [facility] Work Phone: 01-06-2019 11:52-0500 Pulse (Heart Rate) 62 /min [facility] Work Phone: 01-06-2019 11:52-0500 Pulse Oximetry 98 % Kyle [facility] Work Phone: Encounters Encounter Date Encounter Type Care Provider Facility Start: 09-20-2023 End: 09-20-2023 ambulatory NERI BROWN [facility] Start: 07-10-2023 End: 07-10-2023 ambulatory KYLE ANTHONY [facility] Start: 07-10-2023 End: 07-10-2023 Office outpatient visit 25 minutes Kyle Anthony MD Work Phone: [facility] Comment on above: Screening for prosta te cancer (Primary Dx); Primary hypertension; Raynaud's phenomenon without gangrene; Mixed hyperlipidemia Start: 06-20-2023 End: 06-20-2023 ambulatory [facility] Start: 06-20-2023 End: 06-20-2023 Office outpatient visit 25 minutes Neri Brown MD Work Phone: [facility] Comment on above: Other tear of medial meniscus of left knee as current injury, initial encounter; Primary osteoarthritis of right knee Start: 06-20-2023 End: 06-20-2023 Subsequent hospital visit by physician [facility] Comment on above: Arrived Start: 06-20-2023 End: 06-20-2023 ambulatory [facility] Start: 05-02-2023 End: 05-02-2023 ambulatory [facility] Start: 05-02-2023 End: 05-02-2023 Office outpatient new 45 minutes Neri Brown MD Work Phone: [facility] Comment on above: Other tear of medial meniscus of left knee as current injury, initial encounter; Tear of lateral meniscus of left knee, unspecified tear type, unspecified whether old or current tear, initial encounter; Primary osteoarthritis of right knee Start: 05-02-2023 End: 05-02-2023 Subsequent hospital visit by physician Fareed [id number] X-Ray [facility] Comment on above: Other tear of medial meniscus of left knee as current injury, initial encounter Start: 05-02-2023 End: 05-02-2023 ambulatory [facility] Start: 03-28-2023 End: 03-28-2023 Subsequent hospital visit by physician Fareed Adan [facility] Comment on above: Internal derangement of left knee Start: 03-28-2023 End: 03-28-2023 ambulatory [facility] Start: 03-21-2023 End: 03-21-2023 ambulatory [facility] Start: 03-20-2023 End: 03-20-2023 ambulatory [facility] Start: 03-18-2023 End: 03-18-2023 Subsequent hospital visit by physician Fareed [id number] X-Ray [facility] Comment on above: Abnormal x-ray of pe lvis Start: 03-18-2023 End: 03-18-2023 ambulatory [facility] Start: 03-13-2023 End: 03-13-2023 ambulatory [facility] Start: 03-13-2023 End: 03-13-2023 ambulatory [facility] Start: 03-13-2023 End: 03-13-2023 Office outpatient visit 25 minutes Kyle Anthony MD Work Phone: [facility] Comment on above: 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 (Primary Dx); Rheumatoid arthritis, involving unspecified site, unspecified whether rheumatoid factor present ([facility]/H[facility]) Start: 01-07-2023 End: 01-07-2023 Encounter for general adult medical examination without abnormal findings [facility] Start: 01-07-2023 End: 01-07-2023 ambulatory [facility] Start: 12-25-2022 End: 12-25-2022 ambulatory [facility] Start: 06-14-2022 End: 06-14-2022 Office outpatient visit 25 minutes Kyle Anthony MD Work Phone: [facility] Comment on above: Primary hypertension (Primary Dx); Rheumatoid arthritis, involving unspecified site, unspecified whether rheumatoid factor present ([facility]); Mixed hyperlipidemia; Other tobacco product nicotine dependence, uncomplicated Start: 12-15-2021 ambulatory Kyle Anthony F acility:[id number] Start: 12-08-2021 Office outpatient vi sit 25 minutes Kyle Anthony Work Phone: [place] [place]: Start: 11-29-2021 Chart Update Kyle castro Work Phone: [place] Work Phone: Start: 05-22-2021 Adv care pln/ no alt dcsn mkr docd or refusal Kyle Anthony Work Phone: [facility] Work Phone: Start: 05-22-2021 ambulatory KYLE VILLAREAL GABRIELLE Michaela acility:[id number] Start: 08-19-2020 AUDIT Kyle castro Work Phone: [facility] Work Phone: Start: 01-28-2019 Patient encounter procedure Kyle Gabrielle [facility] Work Phone: Start: 01-06-2019 Patient encounter procedure Kyle Anthony -[facility] Work Phone: Colonoscopy normal Kyle Blevins Kurt grant Work Phone: [facility] Work Phone: Comment on above: dr alex 2015; Procedures Date Procedure Procedure Detail Performing Clinician Start: 07-10-2023 FOLLOW UP IN FAMILY MEDICINE KYLE ANTHONY Start: 06-20-2023 POINT OF CARE ULTRAS OUND NO CHARGE KYLE ANTHONY Start: 06-20-2023 US Abdomen Neri dubon MD Work Phone: Start: 05-02-2023 XR KNEE LEFT 4+ VIEWS M CUBA GABRIELLE Start: 05-02-2023 AMB REFERRAL TO ORTH OPAEDIC SURGERY KYLE ANTHONY Start: 05-02-2023 Radiologic exam knee complete 4/more views Neri Brown MD Work Phone: Start: 05-02-2023 POINT OF CARE ULTRAS OUND NO CHARGE KYLE ANTHONY Start: 03-28-2023 MR KNEE LEFT WO IV CONTRAST KYLE ANTHONY Start: 03-28-2023 Mri any jt lower ext rem w/o contrast matrl Kyle Anthony MD Work Phone: Start: 03-18-2023 XR PELVIS 1-2 VIEWS GRANT HAAZRA ANTHONY Start: 03-13-2023 XR KNEE LEFT 3 VIEWS ND FELIZ ANTHONY Start: 03-13-2023 XR HIP LEFT WITH PEL VIS WHEN PERFORMED 2 OR 3 VIEWS KYLE ANTHONY Start: 01-07-2023 Lipid panel NERI BROWN Start: 01-07-2023 PROSTATE SPECIFIC AN TIGEN, SCREEN NERI MIRELESSegundo Start: 01-07-2023 FOLLOW UP IN FAMILY MEDICINE KYLE ANTHONY Start: 01-07-2023 Lipid 1996 panel - S adelaida or Plasma Kyle Anthony MD Work Phone: Start: 11-27-2021 Lipid 1996 panel - S adelaida or Plasma Kyle Anthony MD Work Phone: Start: 01-28-2019 CBC W Auto Different ial panel - Blood Kyle Anthony Start: 01-28-2019 Comprehensive metabo lic 2000 panel Kyle Anthony Start: 01-28-2019 Lipid panel Kyle amador Start: 01-28-2019 PSA screening Kyle mckeon Start: 07-25-2018 PSA screening Comment on above: Result Comment: AGE- SPECIFIC REFERENCE RANGES FOR SERUM PSA REFERENCE RANGE NG/ML AGE ASIANS BLACKS WHITE 40-49 0-2 0-2 0-2.5 50-59 0-3 0-4 0-3.5 60-69 0-4 0-4.5 0-4.5 70-79 0-5 0-5.5 0-6.5 PSA INCREASES WITH AGE, RACE, AND EJACULATION WITHIN 48 HRS. [facility] VOL24,NO.2, , PG.339 Performed By: #### [id number] #### GRACE Mary [address] [place] [address] Start: 08-15-2015 Colonoscopy Kyle Anthony Work Phone: Appendectomy Kyle Anthony Biopsy of skin Kyle veloz Excision of ganglion cyst Mi chael Gabrielle Hernia repair Kyle acuña Surgical procedure o n eye proper Kyle Anthony Comment on above: x 5 repair glaucoma; Tonsillectomy and adenoidectomy Kyle Anthony Plan of Treatment Date Care Activity Detail Author Start: 01-08-2028 Lipid panel Lipid Panel [facility] Start: 11-27-2026 Lipid panel Lipid Panel [facility] Start: 04-25-2025 DTaP/Tdap/Td Vaccine s (2 - Td or Tdap) DTaP/Tdap/Td Vaccines (2 - Td or Tdap) [facility] Start: 01-14-2024 End: 01-14-2024 Patient encounter procedure 01/14/2024 8:40 AM EST Office Visit [facility] [address] [place] [id number] Kyle Anthony MD [address] [place] [address] [facility] Start: 01-10-2024 End: 07-09-2024 Lipid 1996 panel - Serum or Plasma Lipid Panel Lab Routine Mixed hyperlipidemia Expected: 01/10/2024, Expires: 07/09/2024 [facility] Work Phone: Comment on above: Expected: 01/10/2024 , Expires: 07/09/2024 Start: 01-10-2024 End: 07-09-2024 Prostate specific Ag [Mass/volume] in Serum or Plasma Prostate Specific Antigen, Screen Lab Routine Screening for prostate cancer Expected: 01/10/2024, Expires: 07/09/2024 [facility] Service Area Work Phone: Comment on above: Expected: 01/10/2024 , Expires: 07/09/2024 Start: 01-09-2024 Medicare Annual Wellness Visit Medicare Annual Wellness Visit (AWV) [facility] Start: 09-20-2023 End: 09-20-2023 Patient encounter procedure 09/20/2023 8:00 AM EDT Office Visit [facility] [address] [place] [address] Neri Brown MD [address] [place] [id number] [facility] Start: 07-10-2023 End: 07-10-2023 Patient encounter procedure 07/10/2023 8:40 AM EDT Office Visit [facility] [address] [place] [id number] Kyle Anthony MD [address] [place] [address] [facility] Start: 06-13-2023 End: 06-13-2023 Patient encounter procedure 06/13/2023 8:15 AM EDT Office Visit [facility] [address] [place] [address] Neri Brown MD [address] [place] [address] [facility] Start: 05-02-2023 End: 05-01-2024 XR Knee - left 4 Views [facility] Service Area Work Phone: Comment on above: Expected: 05/02/2023 , Expires: 05/01/2024 Once for 1 Occurrenc es starting 05/02/2023 until 05/02/2023 Start: 03-28-2023 End: 03-28-2023 Patient encounter procedure 03/28/2023 8:30 AM EST Appointment [address] [phone] [facility] Start: 03-13-2023 End: 03-13-2024 XR Hip Views [facility] Service Area Work Phone: Comment on above: Expected: 03/13/2023 , Expires: 03/13/2024 Start: 03-13-2023 End: 03-13-2024 XR Knee - left 3 Views [facility] Work Phone: Comment on above: Expected: 03/13/2023 , Expires: 03/13/2024 Start: 01-07-2023 End: 01-07-2023 Patient encounter procedure 01/07/2023 8:40 AM EST Office Visit [facility] [address] [place] [phone] Kyle Anthony MD [address] [place] [address] [facility] Start: 10-26-2022 COVID-19 Vaccine (2022- season) COVID-19 Vaccine (2022- season) [facility] Start: 06-14-2022 EPV, Provider: Kyle Anthony, Status: Pen, Time: 8:40 AM EPV, Provider: Kyle Anthony, Status: Pen, Time: 8:40 AM [facility] [place]: Start: 02-08-2022 COVID-19 Vaccine (4 - Booster for Pfizer series) COVID-19 Vaccine (4 - Booster for Pfizer series) [facility] Start: 02-08-2022 COVID-19 Vaccine (4 - Pfizer series) COVID-19 Vaccine (4 - Pfizer series) [facility] Start: 12-08-2021 EPV, Provider: Kyle Anthony, Status: Pen, Time: 9:00 AM EPV, Provider: Kyle Anthony, Status: Pen, Time: 9:00 AM [facility] Work Phone: Start: 11-22-2021 EPV, Provider: Kyle Anthony, Status: Pen, Time: 8:00 AM EPV, Provider: Kyle Anthony, Status: Pen, Time: 8:00 AM [facility] Work Phone: Start: 11-10-2020 EPV, Provider: Kyle Anthony, Status: Pen, Time: 8:00 AM EPV, Provider: Kyle Anthony, Status: Pen, Time: 8:00 AM [facility] Work Phone: Start: 2004 RSV patient s and/or patients aged 60+ years (1 - 1-dose 60+ series) RSV patients and/or patients aged 60+ years (1 - 1-dose 60+ series) [facility] Start: 07-13-1963 Hepatitis A Vaccines (1 of 2 - Risk 2-dose series) Hepatitis A Vaccines (1 of 2 - Risk 2-dose series) [facility] Start: 1962 Diabetes mellitus screening Diabetes Screening [facility] Start: 1962 Hepatitis C screening Hepatitis C [facility] Start: 1944 Medicare Annual Wellness Visit Medicare Annual Wellness Visit (AWV) [facility] End: 03-18-2023 XR Pelvis 1 or 2 Views [facility] Service Area Work Phone: Comment on above: Once for 1 Occurrenc es starting 03/18/2023 until 03/18/2023 Immunizations Immunization Date Immunization Notes Care Provider Wilton nunes 01-10-2023 Respiratory Synctial Virus (Rsv), Unspecified Kyle Anthony MD Work Phone: [facility] Work Phone: 11-10-2022 Influenza, Seasonal, Quadrivalent, Adjuvanted Kyle Anthony MD Work Phone: [facility] Work Phone: 12-14-2021 Pfizer Sars-cov-2 Bivalent 30 mcg/0.3 mL Kyle Anthony MD Work Phone: [facility] Work Phone: 11-08-2021 Influenza, High-dose Seasonal, Quadrivalent, Preservative Free Kyle Anthony MD Work Phone: [facility] Work Phone: 11-08-2021 influenza, seasonal, injectable Kyle Anthony [facility]: [facility] Work Phone: Comment on above: Series: 11-02-2021 Flu vaccine, quadrivalent, high-dose, preservative free, age 65y+ (FLUZONE) Kyle Anthony MD Work Phone: [facility] Work Phone: 11-24-2020 Pfizer-BioNTech COVI D-19 Vacc 30 MCG/0.3ML Intramuscular Suspension Kyle Anthony Work Phone: [facility] Comment on above: Series: 11-07-2020 Flu vaccine, quadrivalent, high-dose, preservative free, age 65y+ (FLUZONE) Kyle Anthony MD Work Phone: [facility] Work Phone: 11-07-2020 influenza, seasonal, injectable Kyle Anthony Work Phone: [facility] Work Phone: Comment on above: Series: 04-21-2020 Pfizer-BioNTech COVI D-19 Vacc 30 MCG/0.3ML Intramuscular Suspension Kyle Huertacel Work Phone: [facility] Comment on above: Series: 03-25-2020 Pfizer-BioNTech COVI D-19 Vacc 30 MCG/0.3ML Intramuscular Suspension Kyle Huertacel Work Phone: [facility] Comment on above: Series: 11-10-2019 Fluzone High-Dose Quadrivalent 0.7 ML Intramuscular Suspension Prefilled Syringe Kyle Anthony Work Phone: [facility] Work Phone: 10-27-2019 influenza, seasonal, injectable Kyle Anthony Work Phone: [facility] Work Phone: Comment on above: Series: 05-22-2019 zoster vaccine recombinant Kyle Anthony Work Phone: [facility] Comment on above: Series: 02-08-2019 zoster vaccine recombinant Kyle Anthony [facility] Comment on above: Series: 11-26-2018 influenza, high dose seasonal, preservative-free Kyle Anthony MD Work Phone: [facility] Work Phone: 11-26-2018 influenza, seasonal, injectable Kyle Anthony [facility] Work Phone: Comment on above: Series: 12-03-2017 influenza, high dose seasonal, preservative-free Kyle Anthony Work Phone: [facility] Work Phone: 12-07-2016 Seasonal trivalent influenza vaccine, adjuvanted, preservative free Kyle Anthony Work Phone: [facility] Work Phone: 11-15-2015 influenza, high dose seasonal, preservative-free Kyle Anthony Work Phone: [facility] Work Phone: 05-02-2015 pneumococcal conjuga te vaccine, 13 valent Kyle Anthony [facility] Work Phone: Comment on above: Series: 05-02-2015 pneumococcal polysaccharide vaccine, 23 valent Kyle Anthony [facility] Work Phone: 04-26-2015 tetanus toxoid, redu mani diphtheria toxoid, and acellular pertussis vaccine, adsorbed Kyle Anthony [facility] Work Phone: Comment on above: Series: 11-15-2014 influenza, seasonal, injectable, preservative free Kyle Anthony Work Phone: [facility] Work Phone: 04-17-2010 pneumococcal polysaccharide vaccine, 23 valent Kyle Anthony [facility] Work Phone: Comment on above: Series: pneumococcal polysaccharide vaccine, 23 valent Kyle Anthony Work Phone: [facility] Work Phone: Comment on above: Series: Payers Date Payer Category Payer Medicare A[employer] MEDICARE A ETNA MEDICARE VALUE PLAN [id number] 2021-Present Joao Sandhu [id number] [place] [address] [id number] 2021 Private Health Insurance [id number] 1944 Unknown [id number] 56 1944 Unknown [id number] 069 1944 Unknown [id number] [facility] 1944 Unknown [id number] 244 1944 Unknown [id number] [facility] 1944 Unknown [id number] [facility] 1944 Unknown [id number] [id number] [facility] 1944 Unknown [id number] [facility] 1944 Unknown [id number] [id number] [facility] 1944 Unknown [id number] [id number] [facility] 1944 Unknown [id number] [id number] [facility] 1944 Unknown [id number] [id number] [facility] 1944 Unknown [id number] [id number] [facility] 1944 Unknown [id number] [facility] 1944 Unknown [id number] [id number] [facility] 1944 Unknown [id number] [facility] 1945 Unknown [id number] [facility] 1945 Unknown [id number] Unknown Social History Date Type Detail Facility Start: 06-14-2022 End: 06-20-2023 Daily alcohol use Daily alcohol use [facility] Work Phone: Comment on above: PIPE SMOKER, 6 OZ/WK , 3-4X/D X 50 YRS; Start: 06-14-2022 End: 01-07-2023 Tobacco smoking status NHIS Smokes tobacco daily [facility] Work Phone: History of tobacco use Cigarette Smoker [facility] Work Phone: Start: 06-14-2022 End: 01-07-2023 Tobacco use and exposure Smokeless tobacco non-user [facility] Work Phone: Start: 06-14-2022 End: 07-10-2023 Alcohol intake Current drinker of alcohol (finding) [facility] Work Phone: Start: 06-14-2022 End: 06-20-2023 Tobacco use panel [facility] Work Phone: Start: 1945 Sex Assigned At Not on file [facility] Work Phone: Start: 06-04-2022 End: 07-10-2023 Exposure to SARS-CoV-2 (event) Not sure [facility] History of tobacco use Pipe Smoker [facility] Work Phone: Start: 1945 Sex Assigned At Male [facility] Start: 03-13-2023 Gender identity Identifies as male gender (finding) [facility] Work Phone: NEGATED: Highlighted row - - [facility] Work Phone: Functional Status Date Assessment Result Facility NEGATED: Highlighted row Functional performance Functional status health issues are not documented Disease [facility] Work Phone: Mental Status Date Assessment Result Facility NEGATED: Highlighted row Cognitive function [Interpretation] Cognitive status health issues are not documented Disease [facility] Work Phone: Clinical Notes 06-14-2022 to 07-10-2023 Kyle Anthony MD - 07/10/2023 8:40 AM EDTAssessment & Plan Note - Neri Brown MD - 06/20/2023 9:01 AM EDTAssessment & Plan Note - Neri Brown MD - 06/20/2023 9:01 AM EDT Note Date & Type Note Facility 07-10-2023 History of Presen t illness Narrative Subjective Patient ID: Sarai Coe is a 77 y.o. male who presents for Follow-up (6 mo). HPI since the last office visit there have been no interval operations, hospitalizations, important illnesses or injuries. Nifedipine for raynauds- varible dosing Knee pain was on voltaren, stopped as wants to see how knee is doing. X-ray MRI with Dr. Patino reviewed HTN-Takes and tolerates meds without side effects. 1/d alcohol. pipe tobacco. no exercise. low salt. Reviewed recommendation for 150 minutes of exercise per week including 2 days of weight training if over age 50 Hyperlipidemia- is on a statin and a prudent diet. Eye carlos in August. Review of Systems General-no fatigue weight to within 10 pounds ENT known problems with vision. No problem swallowing Cardiac no chest pains palpitations change in exercise tolerance or capacity Pulmonary no cough shortness of breath GI no heartburn or abdominal pain Musculoskeleta multiple joint pains Objective BP 126/68 Pulse 59 Ht 1.753 m (5' 9 ) Wt 70.1 kg (154 lb 9.6 oz) SpO2 95% BMI 22.83 kg/m Physical Exam General: Alert, No acute distress. Appears stated age Eye: Pupils are equal, round and reactive to light, Extraocular movements are intact, Normal conjunctiva. Neck: Supple, Non-tender, No carotid bruit, No jugular venous distention, No lymphadenopathy, No thyromegaly. Respiratory: Lungs are clear to auscultation, Respirations are non-labored, Breath sounds are equal. Cardiovascular: Normal rate, Regular rhythm, No murmur. Gastrointestinal: Soft, Non-tender, No organomegaly. No solid or pulsatile mass Integumentary: Warm, Dry. No concerning lesions on exposed areas Neurologic: Alert, Oriented. Gross and fine motor intact, CN 2-12 intact Psychiatric: Cooperative, Appropriate mood & affect. Assessment/Plan Problem List Items Addressed This Visit ICD-10-CM Hyperlipemia E78.5 Relevant Orders Lipid Panel Follow Up In Primary Care - Established Hypertension I10 Other Visit Diagnoses Codes Screening for prostate cancer - Primary Z12.5 Relevant Orders Prostate Specific Antigen, Screen Follow Up In Primary Care - Established Raynaud's phenomenon without gangrene I73.00 Relevant Orders Follow Up In Primary Care - Established documented in this encounter [facility] Work Phone: 06-20-2023 Evaluation + Plan note Associated Problem(s): Tear of lateral meniscus of left knee Assessment: Left knee lateral meniscal tear and primary arthritis. Both of these have responded well to the initiated therapies. His medical doctor gave him diclofenac's as a pill. He prefers to use the cream. He feels this is more effective and safer. Plan: Continue a gentle home exercise program. Use Voltaren gel on a as needed basis. I spent some time educating him on meniscal tears and their appropriate treatment. I reviewed the ultrasound with him he does have a moderate synovitis and a minimal effusion. Follow-up in 3 months for reevaluation. We do not need to obtain new x-rays unless he is complaining of significantly more pain or symptoms. [facility] Work Phone: 06-20-2023 Miscellaneous Notes Associated Problem(s): Tear of lateral meniscus of left knee Assessment: Left knee lateral meniscal tear and primary arthritis. Both of these have responded well to the initiated therapies. His medical doctor gave him diclofenac's as a pill. He prefers to use the cream. He feels this is more effective and safer. Plan: Continue a gentle home exercise program. Use Voltaren gel on a as needed basis. I spent some time educating him on meniscal tears and their appropriate treatment. I reviewed the ultrasound with him he does have a moderate synovitis and a minimal effusion. Follow-up in 3 months for reevaluation. We do not need to obtain new x-rays unless he is complaining of significantly more pain or symptoms. documented in this encounter [facility] Work Phone: 06-20-2023 History of Presen t illness Narrative Assessment/Plan Encounter Diagnoses: Other tear of medial meniscus of left knee as current injury, initial encounter Primary osteoarthritis of right knee Tear of lateral meniscus of left knee Assessment: Left knee lateral meniscal tear and primary arthritis. Both of these have responded well to the initiated therapies. His medical doctor gave him diclofenac's as a pill. He prefers to use the cream. He feels this is more effective and safer. Plan: Continue a gentle home exercise program. Use Voltaren gel on a as needed basis. A refill was given today. I spent some time educating him on meniscal tears and their appropriate treatment. I reviewed the ultrasound with him he does have a moderate synovitis and a minimal effusion. Follow-up in 3 months for reevaluation. We do not need to obtain new x-rays unless he is complaining of significantly more pain or symptoms. Subjective Patient ID: Sarai Coe is a 77 y.o. male. Chief Complaint: Follow-up of the Left Knee (Meniscal tear ) Last Surgery: No surgery found Last Surgery Date: No surgery found HPI 77-year-old with left knee pain. He is in large part improved. He still does complain of some pain in the popliteal fossa. This happens going up stairs but not down. It also happens when he presses in this area so with direct palpation. He has a sense of knee instability or giving way which may be a pain response and we discussed that. OBJECTIVE: ORTHO EXAM Left knee: Skin healthy and intact No gross swelling or ecchymosis Alignment: Minimal varus Effusion: Scant ROM: 0 degrees Extension 120 degrees Flexion No crepitance with range of motion No pain with internal rotation of the hip Tenderness to palpation: Minimal lateral joint line mild to moderate with deeper palpation into the popliteal fossa. The hamstring tendons medial and lateral were completely nontender. The medial gastroc head was tender to palpation. No laxity to valgus stress No laxity to varus stress Negative Sloan s test Negative posterior drawer test Minimal to mild pain with Aisha s test Neurovascular exam normal distally 2+ DP pulse and good cap refill IMAGE RESULTS: Point of Care Ultrasound These images are not reportable by radiology and will not be interpreted by Radiologists. ULTRASOUND DIAGNOSTIC ULTRASOUND REPORT FINAL: Left KNEE Powder Shoveler: Neri Brown MD Indication: Knee Pain Procedure: Ultrasound, extremity, nonvascular, real-time, COMPLETE, anatomic specific Technique: B-Mode Ultrasound Examination performed using 6- 9 MHz linear transducer with [employer] STUDY TYPE: 1. ULTRASOUND EXTREMITY 2. REAL TIME WITH IMAGE DOCUMENTATION 3. NON-VASCULAR 4. COMPLETE STUDY, INCLUDING BUT NOT LIMITED TO MUSCLE, TENDONS, LIGAMENTS, SOFT TISSUES, ADIPOSE TISSUE AND SUBCUTANEOUS TISSUE. Site: KNEE Live ultrasound was performed with of patient's KNEE and PERMANENTLY documented. I personally performed the ultrasound and reviewed the findings. These show: Kaleigh-articular evaluation: An intact Quadriceps Tendon with the Quadriceps Muscle fibers showing normal striations Quadriceps Tendon demonstrating normal fibrillar pattern. . The Patellar Tendon demonstrates normal fibrillar pattern and is intact. No significant soft tissue fluid collection/abscess appreciated. Joint Evaluation: The lateral joint line shows an intact LCL. Medial joint line exam shows an intact MCL. The patellar tendon was within normal limits. Minimal joint effusion noted. Some hypertrophic synovium is seen in the suprapatellar pouch. The patient tolerated the procedure well. Procedures Orders Placed This Encounter Point of Care Ultrasound documented in this encounter [facility] Work Phone: 05-02-2023 Evaluation + Plan note Associated Problem(s): Tear of lateral meniscus of left knee Assessment: Patient comes in complaining of left knee pain. He points to the popliteal fossa as to where he gets most of his pain. He has improved with prior treatments which included nonsteroidal anti-inflammatories, Mobic, relative rest, elastic knee bracing and some exercises. Plan: I discussed the risks and benefits of arthroscopic intervention for lateral meniscal tears. Voltaren gel use as directed I reviewed his MRI result with him Follow-up in 6 weeks for reevaluation. I reviewed his x-ray result with him. [facility] Work Phone: 05-02-2023 Miscellaneous Notes Associated Problem(s): Tear of lateral meniscus of left knee Assessment: Patient comes in complaining of left knee pain. He points to the popliteal fossa as to where he gets most of his pain. He has improved with prior treatments which included nonsteroidal anti-inflammatories, Mobic, relative rest, elastic knee bracing and some exercises. Plan: I discussed the risks and benefits of arthroscopic intervention for lateral meniscal tears. Voltaren gel use as directed I reviewed his MRI result with him Follow-up in 6 weeks for reevaluation. I reviewed his x-ray result with him. documented in this encounter [facility] Work Phone: 05-02-2023 History of Presen t illness Narrative Assessment/Plan Encounter Diagnoses: Other tear of medial meniscus of left knee as current injury, initial encounter Tear of lateral meniscus of left knee, unspecified tear type, unspecified whether old or current tear, initial encounter Primary osteoarthritis of right knee Tear of lateral meniscus of left knee Assessment: Patient comes in complaining of left knee pain. He points to the popliteal fossa as to where he gets most of his pain. He has improved with prior treatments which included nonsteroidal anti-inflammatories, Mobic, relative rest, elastic knee bracing and some exercises. Plan: I discussed the risks and benefits of arthroscopic intervention for lateral meniscal tears. Voltaren gel use as directed I reviewed his MRI result with him Follow-up in 6 weeks for reevaluation. I reviewed his x-ray result with him. Subjective Patient ID: Sarai Coe is a 77 y.o. male. Chief Complaint: Pain of the Left Knee Last Surgery: No surgery found Last Surgery Date: No surgery found HPI 77-year-old with left knee pain. He is in large part improved. He still does complain of some pain in the popliteal fossa. This happens going up stairs but not down. It also happens when he presses in this area so with direct palpation. He has a sense of knee instability or giving way which may be a pain response and we discussed that. OBJECTIVE: ORTHO EXAM Left knee: Skin healthy and intact No gross swelling or ecchymosis Alignment: Minimal varus Effusion: Scant ROM: 0 degrees Extension 120 degrees Flexion No crepitance with range of motion No pain with internal rotation of the hip Tenderness to palpation: Minimal lateral joint line mild to moderate with deeper palpation into the popliteal fossa. The hamstring tendons medial and lateral were completely nontender. The medial gastroc head was tender to palpation. No laxity to valgus stress No laxity to varus stress Negative Sloan s test Negative posterior drawer test Minimal to mild pain with Aisha s test Neurovascular exam normal distally 2+ DP pulse and good cap refill IMAGE RESULTS: MR knee left wo IV contrast Narrative: Interpreted By: Darian Lees and Marshall Colin STUDY: MRI of the left knee with out contrast INDICATION: Signs/Symptoms:Pain locking COMPARISON: Left knee radiographs dated 03/13/2023. ACCESSION NUMBER(S): [id number] ORDERING CLINICIAN: KYLE ANTHONY TECHNIQUE: Multiplanar multisequence MRI of the left knee was performed without intravenous contrast. FINDINGS: Menisci: Incomplete radial tear of the lateral meniscus posterior root. The medial meniscus is intact. Cruciate ligaments: Intact. Collateral ligaments: Intact. Tendons: The tendons including the extensor mechanism are intact. Muscles: Intact. Bones: No evidence of acute fracture. Nonspecific T2 hyperintense heterogeneity of the bone marrow. Articular cartilage: Medial compartment: Mild cartilage thinning and fibrillation of the medial tibiofemoral compartment articulation. Patellofemoral compartment: Mild fibrillation of the median trochlear groove of the femoral condyle. Lateral compartment: Mild cartilage thinning and fibrillation of the lateral tibiofemoral compartment articulation. Miscellaneous: Small suprapatellar knee joint effusion. Mild prepatellar soft tissue edema. Impression: 1. Incomplete radial tear of the lateral meniscus posterior root. 2. 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 3. Small suprapatellar knee joint effusion and mild prepatellar soft tissue edema. I personally reviewed the images/study and I agree with the resident findings as stated. This study was interpreted at [facility], [place], [place]. MACRO: None. Signed by: Darian Kosrobinson 03/28/2023 10:33 AM Dictation workstation: [id number] ULTRASOUND DIAGNOSTIC ULTRASOUND REPORT FINAL: Left KNEE Powder Shoveler: Neri Brown MD Indication: Knee Pain Procedure: Ultrasound, extremity, nonvascular, real-time, COMPLETE, anatomic specific Technique: B-Mode Ultrasound Examination performed using 6- 9 MHz linear transducer with [employer] STUDY TYPE: 1. ULTRASOUND EXTREMITY 2. REAL TIME WITH IMAGE DOCUMENTATION 3. NON-VASCULAR 4. COMPLETE STUDY, INCLUDING BUT NOT LIMITED TO MUSCLE, TENDONS, LIGAMENTS, SOFT TISSUES, ADIPOSE TISSUE AND SUBCUTANEOUS TISSUE. Site: KNEE Live ultrasound was performed with of patient's KNEE and PERMANENTLY documented. I personally performed the ultrasound and reviewed the findings. These show: Kaleigh-articular evaluation: An intact Quadriceps Tendon with the Quadriceps Muscle fibers showing normal striations Quadriceps Tendon demonstrating normal fibrillar pattern. . The Patellar Tendon demonstrates normal fibrillar pattern and is intact. No significant soft tissue fluid collection/abscess appreciated. Joint Evaluation: The lateral joint line shows an intact LCL. Medial joint line exam shows an intact MCL. The patellar tendon was within normal limits. Scant joint effusion noted. The patient tolerated the procedure well. Procedures Orders Placed This Encounter Point of Care Ultrasound XR knee left 4+ views documented in this encounter [facility] Work Phone: 03-13-2023 History of Presen t illness Narrative Subjective Patient ID: Sarai Coe is a 77 y.o. male who presents for Leg Pain (left). HPI Onset <1 mo with pain in left hip and left knee and knee gives out, can't cross legs, gives out on stairs Llltaking 12 ibuprofen Tried pred at 1/wk when bad, seems to help Stop methotrexate no longer going to see Dr. Peter crowley. Was having some consideration for sulfasalazine. With having pain in the left hip and marked pain in the knee we will have to consider degenerative change in both joints. He has difficulty crossing the left leg over the right and Nba's is 70 degrees on the left but 90 degrees on the right. Similarly flexion of the knee is beyond 120 on the left and about 170 on the right. Noted no swelling but the right knee will lock and give out jesting meniscus injury Review of Systems As per HPI Objective BP 136/76 Pulse 62 Ht 1.753 m (5' 9 ) Wt 69.1 kg (152 lb 4.8 oz) SpO2 94% BMI 22.49 kg/m Physical Exam Heart rhythm is regular. Lungs are clear. Abdomen is soft. Right hip externally rotates to 90 right knee flexes to 170. Left hip external rotate to no more than 70 and knee flexes just beyond 120. No swelling of the knees and both medial and lateral collaterals are intact drawer sign is negative and Aisha's is positive with external rotation of the foot with pain over the lateral meniscus more posteriorly Assessment/Plan Problem List Items Addressed This Visit None Visit Diagnoses Codes Primary osteoarthritis involving multiple joints - Primary M15.9 Relevant Medications diclofenac sodium (Voltaren XR) 100 mg 24 hr tablet Other Relevant Orders XR hip left with pelvis when performed 2 or 3 views XR knee left 3 views Very likely will need MRI and referral to orthopedics documented in this encounter [facility] Work Phone: 06-14-2022 History of Presen t illness Narrative Subjective Patient ID: Sarai Coe is a 76 y.o. male who presents for Follow-up (6 MO FUV. Having right hip catches on occasion. ). HPI since the last office visit there have been no interval operations, hospitalizations, important illnesses or injuries. HTN-Takes and tolerates meds without side effects. Fewer than 21wine alcohol. Pipe tobacco. no exercise. low salt. Reviewed recommendation for 150 minutes of exercise per week including 2 days of weight training if over age 50 Hyperlipidemia- on statin and prudent diet. Reviewed options to convert Mevacor to atorvastatin but he is at goal Arthritis managed by rheumatology Smoking cessation advised Review of Systems general-no fatigue weight to within 10 pounds ENT no problems with swallowing. Complicated glaucoma care with previous surgeries Cardiac no chest pains palpitations change in exercise tolerance or capacity Pulmonary no cough shortness of breath GI no heartburn or abdominal pain Musculoskeletal no disabling or limiting joint pains Objective BP 110/78 Pulse 61 Wt 68 kg (150 lb) SpO2 97% BMI 22.15 kg/m Physical Exam General: Alert, No acute distress. Appears stated age Eye: Pupils are equal, round and reactive to light, Extraocular movements are intact, Normal conjunctiva. Neck: Supple, Non-tender, No carotid bruit, No jugular venous distention, No lymphadenopathy, No thyromegaly. Respiratory: Lungs are clear to auscultation, Respirations are non-labored, Breath sounds are equal. Cardiovascular: Normal rate, Regular rhythm, No murmur. Gastrointestinal: Soft, Non-tender, No organomegaly. No solid or pulsatile mass Integumentary: Warm, Dry. No concerning lesions on exposed areas Neurologic: Alert, Oriented. Gross and fine motor intact, CN 2-12 intact Psychiatric: Cooperative, Appropriate mood & affect. Assessment/Plan documented in this encounter [facility] Work Phone: Evaluation note Diagnosis Primary hypertension- Primary Unspecified essential hypertension Rheumatoid arthritis, involving unspecified site, unspecified whether rheumatoid factor present (CMS/HCC) Mixed hyperlipidemia Other tobacco product nicotine dependence, uncomplicated documented in this encounter [facility] Work Phone: Evaluation note* Diagnosis Primary osteoarthritis involving multiple joints- Primary Rheumatoid arthritis, involving unspecified site, unspecified whether rheumatoid factor present ([facility]/HCC) documented in this encounter [facility] Work Phone: Evaluation note* Diagnosis Abnormal x-ray of pelvis documented in this encounter [facility] Work Phone: Evaluation note* Diagnosis Internal derangement of left knee documented in this encounter [facility] Work Phone: Evaluation note* Diagnosis Other tear of medial meniscus of left knee as current injury, initial encounter Tear of lateral meniscus of left knee, unspecified tear type, unspecified whether old or current tear, initial encounter Primary osteoarthritis of right knee documented in this encounter [facility] Work Phone: Evaluation note* Diagnosis Other tear of medial meniscus of left knee as current injury, initial encounter documented in this encounter [facility] Work Phone: Evaluation note* Diagnosis Other tear of medial meniscus of left knee as current injury, initial encounter documented in this encounter [facility] Work Phone: Evaluation note* Diagnosis Other tear of medial meniscus of left knee as current injury, initial encounter Primary osteoarthritis of right knee documented in this encounter [facility] Work Phone: Evaluation note* Diagnosis Screening for prostate cancer- Primary Special screening for malignant neoplasm of prostate Primary hypertension Unspecified essential hypertension Raynaud's phenomenon without gangrene Mixed hyperlipidemia documented in this encounter [facility] Work Phone: History of Present illness Narrative* The patient is being seen for the subsequent annual wellness visit. * Past Medical, Surgical and Family History: reviewed and updated in chart. * Interval History: Patient has not been hospitalized previously. * Medications and Supplements: Review of all medications by a prescribing practitioner or clinical pharmacist (such as prescriptions, OTCs, herbal therapies and supplements) documented in the medical record. * No, the patient is not using opioids. * Health Risk Assessment:. Paper HRA completed by patient and scanned into chart. * Patient Self Assessment of Health Status: good. * Tobacco use: User He pipe. He has declined tobacco cessation intervention. * Alcohol use: User, As noted in social history 1/d. * Illicit drug use: Non-User * Current diet: well balanced diet. * Exercise Frequency: the patient does not exercise. * Depression/Suicide Screening: . * During the past 2 weeks, the patient has not felt down, depressed or hopeless. * During the past 2 weeks, the patient has not felt little interest or pleasure in doing things. * Hearing Impairment: Patient has significant hearing impairment, He uses a hearing aid. * Cognitive Impairment: No cognitive impairment observed. * Bathing: performs independently. * Dressing: performs independently. * Walking: performs independently. * Toileting: performs independently. * Feeding: performs independently. * Personal Hygiene: performs independently. * Bowels: continent. * Bladder: continent. * Managing Finances: performs independently. * Shopping: performs independently. * Managing Medications: performs independently. * Housework / Basic Home Maintenance: performs independently. * Handling Transportation: performs independently. * Preparing Meals: performs independently. * Using the Telephone/ Communication Devices: performs independently. * Falls Risk Screening:. SARAI has not fallen in the last 6 months. * Home safety risk factors: none. * Advance directives:. Advance Care Planning discussed and documented in the medical record, patient did not wish or was not able to name a surrogate decision maker or provide an advance care plan. Patient has living will. Patient has healthcare POA. * Since the last office visit there have been no interval operations, hospitalizations, important illnesses or injuries. * HTN-Takes and tolerates meds without side effects. No alcohol. no tobacco. no exercise. low salt. Reviewed recommendation for 150 minutes of exercise per week including 2 days of weight training if over age 50 * Hyperlipidemia- is on statin and a prudent diet. * ra- no rx, sees se q yr * eye satified and pressures at goal [facility] Work Phone: History of Present illness Narrative* Since the last office visit there have been no interval operations, hospitalizations, important illnesses or injuries. * Hyperlipidemia- is on statin and a prudent diet. * HTN-Takes and tolerates meds without side effects. No alcohol. no tobacco. no exercise. low salt. Reviewed recommendation for 150 minutes of exercise per week including 2 days of weight training if over age 50 * sees arthritis dr once a year, and on no rx. * smokes 2 oz plipe tob a week, rev ct 2019 and had a number of granuloma, asc aorta, renal cyst [facility] Work Phone: reason for referral (narrative)* Consultation (Routine) - Authorized Specialty Diagnoses / Procedures Referred By Milena san Referred To Contact Primary Care Diagnoses Primary hypertension Procedures Follow Up In Primary Care Kyle Anthony MD [address] [place] [address] Referral ID Status Reason Start Date Expiration Date V isits Requested Visits Authorized [id number] Authorized 06/14/2022 12/11/2022 1 1 [facility] Work Phone: Reason for referral (narrative)* Consultation (Routine) - Authorized Specialty Diagnoses / Procedures Referred By Milena san Referred To Contact Primary Care Diagnoses Raynaud's phenomenon without gangrene Mixed hyperlipidemia Screening for prostate cancer Procedures Follow Up In Primary Care - Established Kyle Anthony MD [address] [place] [address] Referral ID Status Reason Start Date Expiration Date V isits Requested Visits Authorized [id number] Authorized 07/10/2023 07/09/2024 1 1 [facility] Work Phone: Summary Purpose Family History No Family History Records Found natural son Name Dates Details Family history of asthma(V17 .5, Z82.5) Status:Active Mother Name Dates Details Family history of malignant neoplasm(V16.9, Z80.9) Status:Active Father Name Dates Details Family history of myocardial infarction(V17.3, Z82.49) Status:Active Family history of hypertensi on(V17.49, Z82.49) Status:Active Family history of diabetes m ellitus(V18.0, Z83.3) Status:Active Brother Name Dates Details Family history of myocardial infarction(V17.3, Z82.49) Status:Active Family history of hypertensi on(V17.49, Z82.49) Status:Active Family history of diabetes m ellitus(V18.0, Z83.3) Status:Active natural son Name Dates Details Family history of asthma(V17 .5, Z82.5) Status:Active Mother Name Dates Details Family history of malignant neoplasm(V16.9, Z80.9) Status:Active Father Name Dates Details Family history of myocardial infarction(V17.3, Z82.49) Status:Active Family history of hypertensi on(V17.49, Z82.49) Status:Active Family history of diabetes m ellitus(V18.0, Z83.3) Status:Active Brother Name Dates Details Family history of myocardial infarction(V17.3, Z82.49) Status:Active Family history of hypertensi on(V17.49, Z82.49) Status:Active Family history of diabetes m ellitus(V18.0, Z83.3) Status:Active natural son Name Dates Details Family history of asthma(V17 .5, Z82.5) Status:Active Mother Name Dates Details Family history of malignant neoplasm(V16.9, Z80.9) Status:Active Father Name Dates Details Family history of myocardial infarction(V17.3, Z82.49) Status:Active Family history of hypertensi on(V17.49, Z82.49) Status:Active Family history of diabetes m ellitus(V18.0, Z83.3) Status:Active Brother Name Dates Details Family history of myocardial infarction(V17.3, Z82.49) Status:Active Family history of hypertensi on(V17.49, Z82.49) Status:Active Family history of diabetes m ellitus(V18.0, Z83.3) Status:Active Unknown Family Member Name Dates Details Family history of malignant neoplasm: Mother(V16.9, Z80.9) Status:Active Family history of myocardial infarction: Father, Brother(V17.3, Z82.49) Status:Active Family history of asthma: So n(V17.5, Z82.5) Status:Active Family history of hypertensi on: Father, Brother(V17.49, Z82.49) Status:Active Family history of diabetes m ellitus: Father, Brother(V18.0, Z83.3) Status:Active Unknown Family Member Name Dates Details Family history of malignant neoplasm: Mother(V16.9, Z80.9) Status:Active Family history of myocardial infarction: Father, Brother(V17.3, Z82.49) Status:Active Family history of asthma: So n(V17.5, Z82.5) Status:Active Family history of hypertensi on: Father, Brother(V17.49, Z82.49) Status:Active Family history of diabetes m ellitus: Father, Brother(V18.0, Z83.3) Status:Active Unknown Family Member Name Dates Details Family history of malignant neoplasm: Mother(V16.9, Z80.9) Status:Active Family history of myocardial infarction: Father, Brother(V17.3, Z82.49) Status:Active Family history of asthma: So n(V17.5, Z82.5) Status:Active Family history of hypertensi on: Father, Brother(V17.49, Z82.49) Status:Active Family history of diabetes m ellitus: Father, Brother(V18.0, Z83.3) Status:Active Unknown Family Member Name Dates Details Family history of malignant neoplasm: Mother(V16.9, Z80.9) Status:Active Family history of myocardial infarction: Father, Brother(V17.3, Z82.49) Status:Active Family history of asthma: So n(V17.5, Z82.5) Status:Active Family history of hypertensi on: Father, Brother(V17.49, Z82.49) Status:Active Family history of diabetes m ellitus: Father, Brother(V18.0, Z83.3) Status:Active Advance Directives No Advanced Directives Records FoundNo Advanced Directives Records FoundNo Advanced Directives Records FoundNo Advanced Directives Records FoundNo Advanced Directives Records FoundNo Advanced Directives Records FoundNo Advanced Directives Records Found Chief Complaint MCW..6 MO FU HTN,HL6 MO FU. REV LABS Reason for Referral Specialty Diagnoses / Procedures Referred By Contac t Referred To Contact Radiology Diagnoses Primary osteoarthritis involving multiple joints Procedures XR knee left 3 views Kyle Anthony MD [address] [place] [address] Referral ID Status Reason Start Date Expiration Date Visits Requested Visits Authorized Authorized Perform Procedure 03/13/2023 03/12/2024 1 1 Specialty Diagnoses / Procedures Referred By Contac t Referred To Contact Radiology Diagnoses Primary osteoarthritis involving multiple joints Procedures XR hip left with pelvis when performed 2 or 3 views Kyle Anthony MD [address] [place] [address] Referral ID Status Reason Start Date Expiration Date Visits Requested Visits Authorized Authorized Perform Procedure 03/13/2023 03/12/2024 1 1 Specialty Diagnoses / Procedures Referred By Contac t Referred To Contact Radiology Diagnoses Internal derangement of left knee Procedures MR knee left wo IV contrast Stencel, Kyle D, MD [address] [place] [id number] Referral ID Status Reason Start Date Expiration Date Visits Requested Visits Authorized [id number] Authorized Perform Procedure 03/14/2023 03/13/2024 1 1 Specialty Diagnoses / Procedures Referred By Contac t Referred To Contact Radiology Diagnoses Other tear of medial meniscus of left knee as current injury, initial encounter Procedures XR knee left 4+ views Neri Brown MD [address] [place] [id number] Referral ID Status Reason Start Date Expiration Date Visits Requested Visits Authorized [id number] Authorized Perform Procedure 05/02/2023 05/01/2024 1 1 Referral ID Status Reason Start Date Expiration Date Visits Requested Visits Authorized [id number] Authorized Perform Procedure 05/02/2023 05/01/2024 1 1 Additional Source Comments (unrecognized sect ion and content) No Status Records FoundNo Status Records FoundNo Status Records FoundNo Status Records FoundNo Status Records FoundNo Status Records FoundNo Status Records Found INFORMATION SOURCE (unrecogn ized section and content) DATE CREATED AUTHOR 08/04/2018 [facility] DATE CREATED AUTHOR AUTHOR'S ORGANIZ ATION 05/22/2021 [facility] DATE CREATED AUTHOR AUTHOR'S ORGANIZ ATION 11/28/2021 [facility] DATE CREATED AUTHOR AUTHOR'S ORGANIZ ATION 12/19/2021 [facility] DATE CREATED AUTHOR AUTHOR'S ORGANIZ ATION 2023 [facility] DATE CREATED AUTHOR AUTHOR'S ORGANIZ ATION 09/21/2023 [facility] DATE CREATED AUTHOR AUTHOR'S ORGANIZ ATION 11/19/2023 [facility] Reason for Visit (unrecogniz ed section and content) Reason Comments Follow-up 6 MO FUV. Having rig ht hip catches on occasion. Reason Comments Leg Pain left Specialty Diagnoses / Procedures Referred By Contac t Referred To Contact Radiology Diagnoses Abnormal x-ray of pelvis Procedures XR pelvis 1-2 views XR pelvis 3+ views Kyle Anthony MD [address] [place] [address] Referral ID Status Reason Start Date Expiration Date Visits Requested Visits Authorized [id number] Pending Review Perform Procedure 03/14/2023 03/13/2024 1 1 Specialty Diagnoses / Procedures Referred By Miguelinaac t Referred To Contact Diagnoses Unspecified internal derangement of left knee Procedures CHG MRI ANY JT LOWER EXTREM W/O CONTRAST MATRL [facility] [address] [place] [address] Referral ID Status Reason Start Date Expiration Date Visits Re quested Visits Authorized [id number] 1 1 Reason Comments Pain Specialty Diagnoses / Procedures Referred By Miguelinaac t Referred To Contact Orthopaedic Surgery / Orthopedic Surgery Diagnoses Tear of lateral meniscus of left knee, unspecified tear type, unspecified whether old or current tear, initial encounter Kyle Anthony MD [address] [place] [address] Neri Brown MD [address] [place] [address] Referral ID Status Reason Start Date Expiration Date Visits Requested Visits Authorized [id number] Authorized Specialty Services Required 03/29/2023 03/28/2024 1 1 Specialty Diagnoses / Procedures Referred By Miguelinaac t Referred To Contact Radiology Diagnoses Other tear of medial meniscus of left knee as current injury, initial encounter Procedures XR knee left 4+ views Neri Brown MD [address] [place] [address] Referral ID Status Reason Start Date Expiration Date Visits Requested Visits Authorized [id number] Authorized Perform Procedure 05/02/2023 05/01/2024 1 1 Reason Comments Follow-up Meniscal tear Reason Comments Follow-up 6 mo Specialty Diagnoses / Procedures Referred By Contac t Referred To Contact Primary Care Diagnoses Primary hypertension Raynaud's phenomenon without gangrene Mixed hyperlipidemia Procedures Follow Up In Primary Care - Established Kyle Anthony MD [address] [place] [address] Referral ID Status Reason Start Date Expiration Date V isits Requested Visits Authorized [id number] Authorized 01/07/2023 01/07/2024 1 1 Care Teams (unrecognized sec tion and content) 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 Relationship Specialty Start Date End Date Kyle Anthony MD [address] [place] [address] PCP - General 10/28/18 Kyle Anthony MD [address] [place] [address] PCP - [employer]age PCP 02/25/21 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 Relationship Specialty Start Date End Date Kyle Anthony MD [address] [place] [address] PCP - General 10/28/18 Kyle Anthony MD [address] [place] [phone] PCP - [employer]age PCP 02/25/21 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 Relationship Specialty Start Date End Date Kyle Anthony MD [address] [place] [address] PCP - General 10/28/18 Kyle Anthony MD [address] [place] [address] PCP - [employer]age PCP 02/25/21 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 Relationship Specialty Start Date End Date Kyle Anthony MD [address] [place] [address] PCP - General 10/28/18 Kyle Anthony MD [address] [place] [address] PCP - [employer]age PCP 02/25/21 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 Relationship Specialty Start Date End Date Kyle Anthony MD [address] [place] [address] PCP - General 10/28/18 Kyle Anthony MD [address] [place] [address] PCP - [employer] Medicare [employer]vantage PCP 02/25/21 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 Relationship Specialty Start Date End Date Kyle Anthony MD [address] [place] [address] PCP - General 10/28/18 Kyle Anthony MD [address] [place] [address] PCP - [employer]age PCP 02/25/21 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 Relationship Specialty Start Date End Date Kyle Anthony MD [address] [place] [address] PCP - General 10/28/18 Kyle Anthony MD [address] [place] [address] PCP - [employer]vantage PCP 02/25/21 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 Relationship Specialty Start Date End Date Kyle Anthony MD [address] [place] [address] PCP - General 10/28/18 Kyle Anthony MD [address] [place] [address] PCP - [employer] Medicare [employer]vantage PCP 02/25/21 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 Relationship Specialty Start Date End Date [facility] [address] [facility] [place] [phone] PCP - General 10/28/18 Kyle Anthony MD [address] [place] [address] PCP - [employer] Medicare [employer]vantage PCP 02/25/21 FOR RECORDS PERTAINING TO PATIENTS WHO ARE OR HAVE BEEN ENROLLED IN A CHEMICAL DEPENDENCY/SUBSTANCEABUSE PROGRAM, SOME INFORMATION MAY BE OMITTED. This clinical summary was aggregated from multiple sources. Caution should be exercised in using it in the provision of clinical care. This summary normalizes information from multiple sources, and as a consequence, information in this document may materially change the coding, format and clinical context of patient data. In addition, data may be omitted in some cases. CLINICAL DECISIONS SHOULD BE BASED ON THE PRIMARY CLINICAL RECORDS. [facility] [employer] [facility]. provides no warranty or guarantee of the accuracy or completeness of information in this document.
[2023-12-23 15:39] LABS: Absolute Lymphocyte Count 1.13 X10^3/uL (0.83-4.51); Absolute Neutrophil Count 4.7 X10^3/uL (2.0-7.7); Basophil# 0.05 X10^3/uL; Basophil% 0.7 % (0-1); Eosinophils% 2.9 % (0-5); Hematocrit 42.4 % (40-54); Hemoglobin 13.9 g/dL (13.0-16.5); Lymphocyte # 1.13 X10^3/ul (0.83-4.51); Lymphocyte % 16.7 % (19-41); Mean Corp Hgb Conc 32.8 g/dL (32-36); Mean Corpuscular Hgb 33.7 pg (27.0-32.0); Mean Corpuscular Volume 102.9 fL (80-94); Mean Platelet Vol. 9.7 fl (6.2-12.0); Monocyte# 0.66 X10^3/uL; Monocyte% 9.7 % (0-10); NRBC Flagged by Analyzer 0 % (0-5); Neutrophil # 4.71 X10^3/uL (2.7-7.7); Neutrophil % 69.6 % (47-70); Platelet Count 279 K/mm3 (150-450); RBC Distribution Width CV 14.1 % (11.6-14.6); RBC Distribution Width SD 54.1 fl (35.1-43.9); Red Blood Count 4.12 M/mm3 (4.6-6.2); White Blood Count 6.8 K/mm3 (4.4-11.0)
[2023-12-23 16:03] LABS: ALB/GLOB Ratio 1.1 RATIO (0.9-2.4); AST(SGOT) 18 U/L (15-37); Alanine Aminotransfer ALT/SGPT 26 U/L (16-61); Albumin, Serum 3.9 g/dL (3.2-5.0); Alkaline Phosphatase 83 U/L (45-117); Anion Gap 7 (5-15); BUN 28 mg/dL (7-18); BUN/Creat Ratio 29.5 RATIO (10-20); Chloride 106 mmol/L (98-107); Creatinine, Serum 0.95 mg/dL (0.70-1.30); EST Glomerular Filtration Rate 81 mL/min (>60); Est Glom Filt Rate - Afr Amer 99 mL/min (>60); Globulin 3.5 g/dL (2.2-4.2); Glucose 95 mg/dL (74-106); Potassium 4.2 mmol/L (3.5-5.1); Protein, Total 7.4 g/dL (6.4-8.2); Sodium Level 140 mmol/L (136-145)
== END | disposition home or self-care (01) ==
LOC: MTLAB 11:08
PROVIDERS: PCP Family Medicine; Referring Provider Internal Medicine Rheumatology; Visit Provider Internal Medicine Rheumatology
DX: M06.4 Inflammatory polyarthropathy (principal); Z79.899 Other long term (current) drug therapy
CPT/HCPCS: 36415; 80053; 85025

== ENCOUNTER → 2024-01-29 | Outpatient (CLI) | payer MEDICARE, SELFPAY ==
[2024-01-29 15:23] LABS: Absolute Lymphocyte Count 1.17 X10^3/uL (0.83-4.51); Absolute Neutrophil Count 4.7 X10^3/uL (2.0-7.7); Basophil# 0.07 X10^3/uL; Eosinophil# 0.25 X10^3/uL; Eosinophils% 3.6 % (0-5); Hematocrit 45.6 % (40-54); Hemoglobin 15.1 g/dL (13.0-16.5); Lymphocyte # 1.17 X10^3/ul (0.83-4.51); Mean Corp Hgb Conc 33.1 g/dL (32-36); Mean Corpuscular Hgb 34.3 pg (27.0-32.0); Mean Corpuscular Volume 103.6 fL (80-94); Mean Platelet Vol. 9.6 fl (6.2-12.0); Monocyte# 0.69 X10^3/uL; NRBC Flagged by Analyzer 0 % (0-5); Neutrophil # 4.67 X10^3/uL (2.7-7.7); Platelet Count 285 K/mm3 (150-450); RBC Distribution Width CV 13.5 % (11.6-14.6); RBC Distribution Width SD 52.2 fl (35.1-43.9); White Blood Count 6.9 K/mm3 (4.4-11.0)
[2024-01-29 16:02] LABS: AST(SGOT) 18 U/L (15-37); Alanine Aminotransfer ALT/SGPT 26 U/L (16-61); Albumin, Serum 4.1 g/dL (3.2-5.0); Alkaline Phosphatase 92 U/L (45-117); Anion Gap 6 (5-15); BUN 20 mg/dL (7-18); Calcium,Total 9.6 mg/dL (8.5-10.1); Chloride 104 mmol/L (98-107); EST Glomerular Filtration Rate 77 mL/min (>60); Est Glom Filt Rate - Afr Amer 93 mL/min (>60); Globulin 4.1 g/dL (2.2-4.2); Glucose 104 mg/dL (74-106); Potassium 3.9 mmol/L (3.5-5.1); Protein, Total 8.2 g/dL (6.4-8.2); Sodium Level 138 mmol/L (136-145)
== END | disposition home or self-care (01) ==
PROVIDERS: PCP Family Medicine; Referring Provider Internal Medicine Rheumatology; Visit Provider Internal Medicine Rheumatology
DX: M06.4 Inflammatory polyarthropathy (principal); Z79.899 Other long term (current) drug therapy
CPT/HCPCS: 36415; 80053; 85025

== ENCOUNTER → 2024-04-24 | Outpatient (CLI) | payer MEDICARE, SELFPAY ==
[2024-04-24 12:52] LABS: ALB/GLOB Ratio 1.5 RATIO (0.9-2.4); AST(SGOT) 21 U/L (<=37); Alanine Aminotransfer ALT/SGPT 15 U/L (<=46); Albumin, Serum 4.3 g/dL (3.4-4.8); Alkaline Phosphatase 83 U/L (40-129); Anion Gap 11 (5-15); BUN 27 mg/dL (4-19); BUN/Creat Ratio 28.2 RATIO (10-20); Calcium 9.6 mg/dL (7.6-11.0); Carbon Dioxide 25.9 mmol/L (22.0-29.0); Chloride 103 mmol/L (96-108); Creatinine, Serum 0.95 mg/dL (0.70-1.20); EST Glomerular Filtration Rate 81 (>60); Globulin 2.8 g/dL (2.2-4.2); Glucose 98 mg/dL (70-99); Potassium 3.9 mmol/L (3.3-5.1); Protein, Total 7.1 g/dL (5.9-8.4); Sodium Level 140 mmol/L (133-145); Total Bilirubin 0.39 mg/dL (0.00-1.30)
[2024-04-24 13:48] LABS: Absolute Neutrophil Count 3.6 X10^3/uL (2.0-7.7); Basophil# 0.03 X10^3/uL; Basophil% 0.6 % (0-1); Eosinophil# 0.19 X10^3/uL; Eosinophils% 3.5 % (0-5); Hematocrit 40.9 % (40-54); Hemoglobin 13.9 g/dL (13.0-16.5); Lymphocyte % 16.6 % (19-41); Mean Corpuscular Hgb 35.8 pg (27.0-32.0); Mean Corpuscular Volume 105.4 fL (80-94); Mean Platelet Vol. 9.7 fl (6.2-12.0); Monocyte# 0.66 X10^3/uL; Monocyte% 12.2 % (0-10); NRBC Flagged by Analyzer 0 % (0-5); Neutrophil # 3.62 X10^3/uL (2.7-7.7); Neutrophil % 66.7 % (47-70); Platelet Count 261 K/mm3 (150-450); RBC Distribution Width CV 13.8 % (11.6-14.6); RBC Distribution Width SD 54.1 fl (35.1-43.9); Red Blood Count 3.88 M/mm3 (4.6-6.2); White Blood Count 5.4 K/mm3 (4.4-11.0)
== END | disposition home or self-care (01) ==
LOC: MTLAB 10:25
PROVIDERS: PCP Family Medicine; Referring Provider Internal Medicine Rheumatology; Visit Provider Internal Medicine Rheumatology
DX: M06.4 Inflammatory polyarthropathy (principal); M47.897 Other spondylosis, lumbosacral region; Z79.899 Other long term (current) drug therapy
CPT/HCPCS: 36415; 80053; 85025

== ENCOUNTER → 2024-07-21 | Outpatient (CLI) | payer MEDICARE, SELFPAY ==
[2024-07-21 12:21] LABS: Absolute Lymphocyte Count 1.03 X10^3/uL (0.83-4.51); Absolute Neutrophil Count 3.4 X10^3/uL (2.0-7.7); Basophil# 0.04 X10^3/uL; Basophil% 0.8 % (0-1); Eosinophil# 0.23 X10^3/uL; Eosinophils% 4.3 % (0-5); Hematocrit 40.3 % (40-54); Hemoglobin 13.6 g/dL (13.0-16.5); Lymphocyte # 1.03 X10^3/ul (0.83-4.51); Lymphocyte % 19.4 % (19-41); Mean Corp Hgb Conc 33.7 g/dL (32-36); Mean Corpuscular Hgb 35.3 pg (27.0-32.0); Mean Corpuscular Volume 104.7 fL (80-94); Mean Platelet Vol. 9.6 fl (6.2-12.0); Monocyte# 0.64 X10^3/uL; NRBC Flagged by Analyzer 0 % (0-5); Neutrophil # 3.36 X10^3/uL (2.7-7.7); Neutrophil % 63.1 % (47-70); Platelet Count 259 K/mm3 (150-450); RBC Distribution Width SD 50.6 fl (35.1-43.9); Red Blood Count 3.85 M/mm3 (4.6-6.2); White Blood Count 5.3 K/mm3 (4.4-11.0)
[2024-07-21 12:53] LABS: ALB/GLOB Ratio 1.6 RATIO (0.9-2.4); AST(SGOT) 24 U/L (<=37); Alanine Aminotransfer ALT/SGPT 18 U/L (<=46); Albumin, Serum 4.4 g/dL (3.4-4.8); Alkaline Phosphatase 78 U/L (40-129); Anion Gap 11 (5-15); BUN 22 mg/dL (4-19); BUN/Creat Ratio 22.4 RATIO (10-20); Calcium,Total 9.5 mg/dL (7.6-11.0); Carbon Dioxide 26.7 mmol/L (21.0-32.0); Chloride 104 mmol/L (98-108); Creatinine, Serum 0.97 mg/dL (0.70-1.20); EST Glomerular Filtration Rate 79 (>60); Globulin 2.7 g/dL (2.2-4.2); Glucose 98 mg/dL (70-99); Potassium 3.9 mmol/L (3.3-5.1); Protein, Total 7.2 g/dL (5.9-8.4); Sodium Level 141 mmol/L (133-145); Total Bilirubin 0.34 mg/dL (0.00-1.30)
== END | disposition home or self-care (01) ==
LOC: MTLAB 10:35
PROVIDERS: PCP Family Medicine; Referring Provider Internal Medicine Rheumatology; Visit Provider Internal Medicine Rheumatology
DX: M06.4 Inflammatory polyarthropathy (principal); Z79.899 Other long term (current) drug therapy
CPT/HCPCS: 36415; 80053; 85025

== ENCOUNTER → 2024-10-12 | Outpatient (CLI) | payer MEDICARE, SELFPAY ==
[2024-10-12 12:32] LABS: Hematocrit 39.7 % (40-54); Hemoglobin 13.5 g/dL (13.0-16.5); Immature Granulocytes Count 0.020 X10^3/uL (0.0-0.0); Mean Corp Hgb Conc 34.0 g/dL (32-36); Mean Corpuscular Volume 106.4 fL (80-94); Mean Platelet Vol. 9.7 fl (6.2-12.0); NRBC Flagged by Analyzer 0 % (0-5); Platelet Count 282 K/mm3 (150-450); RBC Distribution Width CV 13.4 % (11.6-14.6); RBC Distribution Width SD 52.8 fl (35.1-43.9); Red Blood Count 3.73 M/mm3 (4.6-6.2); White Blood Count 4.7 K/mm3 (4.4-11.0)
[2024-10-12 13:04] LABS: AST(SGOT) 28 U/L (<=37); Alanine Aminotransfer ALT/SGPT 25 U/L (<=46); Albumin, Serum 4.3 g/dL (3.4-4.8); Alkaline Phosphatase 80 U/L (40-129); Anion Gap 11 (5-15); BUN 19 mg/dL (4-19); BUN/Creat Ratio 20.9 RATIO (10-20); Calcium,Total 9.6 mg/dL (7.6-11.0); Carbon Dioxide 25.8 mmol/L (21.0-32.0); Chloride 104 mmol/L (98-108); Globulin 2.6 g/dL (2.2-4.2); Glucose 99 mg/dL (70-99); Potassium 4.3 mmol/L (3.3-5.1)
== END | disposition home or self-care (01) ==
PROVIDERS: PCP Family Medicine; Referring Provider Internal Medicine Rheumatology; Visit Provider Internal Medicine Rheumatology
DX: M06.4 Inflammatory polyarthropathy (principal); Z79.899 Other long term (current) drug therapy
CPT/HCPCS: 36415; 80053; 85025

== ENCOUNTER → 2025-01-06 | Outpatient (CLI) | payer MEDICARE, SELFPAY ==
[2025-01-06 16:51] LABS: AST(SGOT) 23 U/L (<=37); Alanine Aminotransfer ALT/SGPT 28 U/L (<=46); Albumin, Serum 4.1 g/dL (3.4-4.8); Alkaline Phosphatase 88 U/L (40-129); Anion Gap 11 (5-15); BUN 22 mg/dL (4-19); BUN/Creat Ratio 23.4 RATIO (10-20); Calcium,Total 9.8 mg/dL (7.6-11.0); Carbon Dioxide 25.2 mmol/L (21.0-32.0); Chloride 105 mmol/L (98-108); Globulin 2.7 g/dL (2.2-4.2); Glucose 93 mg/dL (70-99); Potassium 3.7 mmol/L (3.3-5.1)
[2025-01-06 18:11] LABS: Hematocrit 36.4 % (40-54); Hemoglobin 12.8 g/dL (13.0-16.5); Immature Granulocytes Count 0.020 X10^3/uL (0.0-0.0); Mean Corp Hgb Conc 35.2 g/dL (32-36); Mean Corpuscular Volume 102.2 fL (80-94); Mean Platelet Vol. 9.7 fl (6.2-12.0); NRBC Flagged by Analyzer 0 % (0-5); Platelet Count 290 K/mm3 (150-450); RBC Distribution Width CV 12.9 % (11.6-14.6); RBC Distribution Width SD 48.4 fl (35.1-43.9); Red Blood Count 3.56 M/mm3 (4.6-6.2); White Blood Count 5.3 K/mm3 (4.4-11.0)
== END | disposition home or self-care (01) ==
LOC: MTLAB 11:06
PROVIDERS: PCP Family Medicine; Referring Provider Internal Medicine Rheumatology; Visit Provider Internal Medicine Rheumatology
DX: M06.4 Inflammatory polyarthropathy (principal); Z79.899 Other long term (current) drug therapy
CPT/HCPCS: 36415; 80053; 85025